=== PATIENT | female | born 1950 | race Caucasian/White ===

== ENCOUNTER 2019-07-08 11:28 | Outpatient (CLI) | payer MEDICARE, SELFPAY ==
[2019-07-08 12:13] LABS: Albumin Level 3.6 g/dL (3.5-5.1); Blood Urea Nitrogen 54 mg/dL (7-17); Calcium 8.9 mg/dL (8.4-10.2); Carbon Dioxide 25 mmol/L (22-30); Chloride 103 mmol/L (98-107); Estimated Glomerular Filt Rate 13; Glucose 202 mg/dL (65-105); Phosphorus 4.2 mg/dL (2.5-4.5); Potassium 3.9 mmol/L (3.4-5.0); Sodium 137 mmol/L (137-145)
[2019-07-08 12:15] LABS: Hemoglobin A1C 6.9 % (<5.7)
[2019-07-08 12:43] LABS: Creatinine Urine 88.8 mg/dL; Total Protein Urine Random 71 mg/dL
== END 2019-07-08 11:29 | disposition home or self-care (01) ==
PROVIDERS: PCP Internal Medicine; Visit Provider Internal Medicine Nephrology
DX: N18.4 Chronic kidney disease, stage 4 (severe) (principal); E11.29 Type 2 diabetes mellitus with other diabetic kidney complication; I12.9 Hypertensive chronic kidney disease with stage 1 through stage 4 chronic kidney disease, or unspecified chronic kidney disease
CPT/HCPCS: 36415; 80069; 82570; 83036; 84156

== ENCOUNTER 2019-07-28 11:01 | Outpatient (CLI) | payer MEDICARE, SELFPAY ==
[2019-07-28 11:36] LABS: Albumin Level 3.5 g/dL (3.5-5.1); Blood Urea Nitrogen 46 mg/dL (7-17); Calcium 8.6 mg/dL (8.4-10.2); Carbon Dioxide 23 mmol/L (22-30); Chloride 105 mmol/L (98-107); Estimated Glomerular Filt Rate 16; Glucose 229 mg/dL (65-105); Phosphorus 4.1 mg/dL (2.5-4.5); Potassium 3.6 mmol/L (3.4-5.0); Sodium 138 mmol/L (137-145)
== END 2019-07-28 11:02 | disposition home or self-care (01) ==
PROVIDERS: PCP Internal Medicine; Referring Provider Internal Medicine; Visit Provider Internal Medicine Nephrology
DX: N18.4 Chronic kidney disease, stage 4 (severe) (principal); I12.9 Hypertensive chronic kidney disease with stage 1 through stage 4 chronic kidney disease, or unspecified chronic kidney disease; E11.29 Type 2 diabetes mellitus with other diabetic kidney complication
CPT/HCPCS: 36415; 80069

== ENCOUNTER 2019-11-05 11:01 | Outpatient (CLI) | payer MEDICARE, SELFPAY ==
[2019-11-05 11:43] LABS: Albumin Level 3.7 g/dL (3.5-5.1); Anion Gap 10 mmol/L (8-16); Blood Urea Nitrogen 41 mg/dL (7-17); Calcium 8.8 mg/dL (8.4-10.2); Carbon Dioxide 24 mmol/L (22-30); Chloride 103 mmol/L (98-107); Estimated Glomerular Filt Rate 21; Glucose 242 mg/dL (65-105); Phosphorus 4.1 mg/dL (2.5-4.5); Potassium 3.5 mmol/L (3.4-5.0); Sodium 137 mmol/L (137-145)
[2019-11-05 11:50] LABS: Creatinine Urine 41.6 mg/dL; Total Protein Urine Random 45 mg/dL
[2019-11-05 11:54] LABS: Parathyroid Intact 182.7 pg/mL (7.5-53.5)
[2019-11-05 12:07] LABS: Vitamin D 25 Hydroxy 57.6 ng/mL
== END 2019-11-05 11:02 | disposition home or self-care (01) ==
LOC: ANHLAB 11:03
PROVIDERS: PCP Internal Medicine; Visit Provider Internal Medicine Nephrology
DX: R80.8 Other proteinuria (principal); I12.9 Hypertensive chronic kidney disease with stage 1 through stage 4 chronic kidney disease, or unspecified chronic kidney disease; N18.4 Chronic kidney disease, stage 4 (severe); E11.29 Type 2 diabetes mellitus with other diabetic kidney complication
CPT/HCPCS: 36415; 80069; 82306; 82570; 83970; 84156

== ENCOUNTER 2020-01-09 09:56 | Outpatient (CLI) | payer MEDICARE, SELFPAY ==
[2020-01-09 10:39] LABS: Alanine Aminotransferase 15 U/L (4-35); Albumin Level 3.9 g/dL (3.5-5.1); Alkaline Phosphatase 107 U/L (38-126); Anion Gap 8 mmol/L (8-16); Aspartate Amino Transferase 17 U/L (14-36); Bilirubin,Total 0.2 mg/dL (0.2-1.3); Blood Urea Nitrogen 40 mg/dL (7-17); Calcium 9.3 mg/dL (8.4-10.2); Carbon Dioxide 30 mmol/L (22-30); Chloride 108 mmol/L (98-107); Cholesterol 179 mg/dL (0-200); Estimated Glomerular Filt Rate 19; Glucose 112 mg/dL (65-105); HDL Direct 29 mg/dL; Potassium 4.7 mmol/L (3.4-5.0); Sodium 146 mmol/L (137-145); Triglycerides 198 mg/dL (<150); Uric Acid 5.8 mg/dL (2.5-7.5)
[2020-01-09 10:50] LABS: LDL Cholesterol Direct 90 mg/dL
[2020-01-09 11:11] LABS: Creatinine Urine 82.2 mg/dL
[2020-01-09 11:16] LABS: MALB Creatinine Ratio 102.7 mg/g (0-30); Microalbumin Urine Random 84.4 mg/L (0-16.7)
[2020-01-09 11:27] LABS: Vitamin D 25 Hydroxy 66.7 ng/mL
[2020-01-09 11:57] LABS: Hemoglobin A1C 6.2 % (<5.7)
== END 2020-01-09 09:57 | disposition home or self-care (01) ==
PROVIDERS: PCP Internal Medicine; Visit Provider Nurse Practitioner
DX: F32.9 Major depressive disorder, single episode, unspecified (principal); E11.21 Type 2 diabetes mellitus with diabetic nephropathy; E78.5 Hyperlipidemia, unspecified; E55.9 Vitamin D deficiency, unspecified; M1A.9XX0 Chronic gout, unspecified, without tophus (tophi)
CPT/HCPCS: 36415; 80053; 80061; 82043; 82306; 83036; 84443; 84550

== ENCOUNTER 2020-02-07 01:29 | Outpatient (CLI) | payer MEDICARE, SELFPAY ==
[2020-02-07 19:09] LABS: SARS-CoV-2 RNA PCR Negative
== END 2020-02-07 01:30 | disposition home or self-care (01) ==
LOC: ANHCOVIDDT 01:29
PROVIDERS: PCP Internal Medicine; Visit Provider Internal Medicine Gastroenterology
DX: Z01.818 Encounter for other preprocedural examination (principal); Z20.828 Contact with and (suspected) exposure to other viral communicable diseases
CPT/HCPCS: 87635; C9803; U0003

== ENCOUNTER 2020-02-10 01:13 | Day surgery (SDC) | payer MEDICARE, SELFPAY ==
[2020-02-03 09:31] VITALS: BMI 43.1
[2020-02-10 06:42] LABS: Glucose Point of Care 129 (65-105)
[2020-02-10 06:47] VITALS: BP 118/67; PULSE 66; RESP 18; TEMP 36.7; O2SAT 98
[2020-02-10] MEDS: LACTATED RINGERS 1,000 ML 150 ML IV CONT (06:57)
--- NOTE | 2020-02-10 08:01 | WPDANESEPPF ---
Anes - Initial Pre Proc Eval Procedure: Operation Date: 02/10/20 08:00 Proposed Procedures p Screening Colonoscopy - Juan Yanez MD Date/Time: 02/10/20 08:01 Surgeon: Juan Yanez MD Pre Op Diagnosis: Neoplasm Screening Patient Data Age: 69 Gender: F Height: 5 ft 7 in Weight: 126.2 kg Last Vital Signs Temp 98.1 F 02/10/20 06:47 Pulse 66 02/10/20 06:47 Resp 18 02/10/20 06:47 BP 118/67 02/10/20 06:47 Pulse Ox 98 02/10/20 06:47 Allergies Allergy/AdvReac Type Severity Reaction Status Date / Time Penicillins Allergy Unknown Swelling Verified 02/10/20 06:45 Home Medications Medication Instructions Recorded Confirmed Type glipizide 5 mg tablet 2.5 mg PO DAILY #30 tablet 03/17/19 02/03/20 Rx clopidogrel 75 mg tablet 75 mg PO DAILY #90 tablet 04/23/19 02/10/20 Rx albuterol sulfate 90 mcg/actuation 1 puff INHALATION Q4-6H PRN #8.5 gm 07/15/19 02/03/20 Rx aerosol inhaler aspirin 81 mg tablet,delayed 81 mg PO DAILY 07/15/19 02/03/20 History release tiotropium bromide 18 mcg capsule 1 cap INHALATION DAILY #30 07/15/19 02/03/20 Rx with inhalation device inhalation furosemide 40 mg tablet 40 mg PO BID #180 tablet 08/28/19 02/03/20 Rx venlafaxine 75 mg capsule,extended 75 mg PO DAILY #90 cap 01/13/20 02/03/20 Rx release 24 hr lisinopril 20 mg tablet 20 mg PO DAILY #90 tablet 01/27/20 02/03/20 Rx omeprazole 40 mg capsule,delayed 40 mg PO DAILY #90 cap 01/27/20 02/03/20 Rx release simvastatin 40 mg tablet 40 mg PO DAILY #90 tablet 01/27/20 02/03/20 Rx allopurinol 100 mg PO DAILY 02/03/20 02/03/20 History buspirone 15 mg PO BID 02/03/20 02/03/20 History calcitriol 0.25 mcg PO QMWF 02/03/20 02/03/20 History carvedilol 25 mg PO BID 02/03/20 02/03/20 History cholecalciferol (vitamin D3) 10 mcg PO DAILY 02/03/20 02/03/20 History [Vitamin D3] fwsfcmudojmh-zvk-wfpp-FA-vit K 1 tablet PO DAILY 02/03/20 02/03/20 History [Adults Multivitamin] topiramate 100 mg PO HS 02/03/20 02/03/20 History Laboratory Tests 02/10/20 06:40 POC Capillary Glucose 129 mg/dl H mg/dl (65-105) Patient hx anesthesia problems: none Family hx anesthesia problems: none PMFSH Past Medical History Medical History (Updated 02/10/20 @ 08:04 by Wagner Hoover MD) history Chronic kidney disease, stage 4 (severe) Elevated parathyroid hormone Essential (primary) hypertension Hyperlipidemia, unspecified Screening for breast cancer Seizure disorder Surgical History Surgical History (Updated 05/13/19 @ 07:41 by Katia Queen CMA) H/O dilation and curettage H/O exploratory laparotomy History of carpal tunnel release History of elbow surgery History of knee replacement History of partial hysterectomy Family History Family History (Updated 07/03/18 @ 12:50 by DOCTOR UNKNOWN) Mother Family history of diabetes mellitus in first degree relative Diabetes mellitus Sibling Family history of diabetes mellitus in first degree relative Father Patient's father is Acute myocardial infarction Family history of congestive heart failure Other Family history of lymphoma Social History Social History Smoking packs per day: 2 Smoking cigarettes per day: 40.0 Years smoked: 20 Smoking pack-years: 40.00 Smoking status: Former smoker Tobacco type: cigarettes Smoking end date: 03/19/80 Alcohol intake: current Substance use: never Substance use type: does not use Living arrangements: with family Spiritual care concerns: No Anes - Eval Final PreProcedure Day of Procedure 02/10/20 08:01 Patient weight: overweight Heart: regular rate and rhythm Lungs: clear to auscultation Airway: Mallampati scale class III Neurological: alert and oriented Last oral intake: >/= 8 hours ASA classification: III Emergent: no Anesthetic plan: proceed Anesthesia type and monitoring: general GIVS and standard monitoring In
--- NOTE | 2020-02-10 08:09 | PM.HPGS ---
History of Present Illness History of Present Illness Consent: Risks, benefits, and alternatives have been discussed and questions answered. Patient agrees to proceed with procedure. Chief complaint: Neoplasm Screening Narrative: Billie Holcomb is a 69 year old female here for screening colonoscopy, last one several years ago Review of Systems Constitutional: Constitutional: Denies headache(s) and Denies weakness Eyes: Eyes: Denies blurry vision ENT: Reports Normal hearing present, Denies headache(s) and Denies neck pain Cardiovascular: Cardiovascular: Denies chest pain and Denies dyspnea Respiratory: Respiratory: Denies dyspnea Gastrointestinal: Gastrointestinal: Reports no additional gastrointestinal complaints Genitourinary: Genitourinary: Denies dysuria Musculoskeletal: Musculoskeletal: Denies neck pain Integumentary/Breasts: Skin/Breast: Denies dry skin Neurologic: Reports Normal hearing present, Denies headache(s) and Denies weakness Psychiatric: Psychiatric: Denies anxiety Endocrine: Endocrine: Denies change in body appearance Hematologic/Lymphatic: Hematologic/Lymphatic: Denies easy bleeding Allergic/Immunologic: Allergic/Immunologic: Denies urticaria PMFSH Past Medical History Medical History (Updated 02/10/20 @ 08:10 by Juan Yanez MD) history Chronic kidney disease, stage 4 (severe) Colon cancer screening Elevated parathyroid hormone Essential (primary) hypertension Hyperlipidemia, unspecified Screening for breast cancer Seizure disorder Surgical History Surgical History (Updated 05/13/19 @ 07:41 by Katia Queen CMA) H/O dilation and curettage H/O exploratory laparotomy History of carpal tunnel release History of elbow surgery History of knee replacement History of partial hysterectomy Family History Family History (Updated 07/03/18 @ 12:50 by DOCTOR UNKNOWN) Mother Family history of diabetes mellitus in first degree relative Diabetes mellitus Sibling Family history of diabetes mellitus in first degree relative Father Patient's father is Acute myocardial infarction Family history of congestive heart failure Other Family history of lymphoma Social History Social History Smoking packs per day: 2 Smoking cigarettes per day: 40.0 Years smoked: 20 Smoking pack-years: 40.00 Smoking status: Former smoker Tobacco type: cigarettes Smoking end date: 03/19/80 Alcohol intake: current Substance use: never Substance use type: does not use Living arrangements: with family Spiritual care concerns: No Meds Home Medications and Allergies Home Medications Medication Instructions Recorded Confirmed Type glipizide 5 mg tablet 2.5 mg PO DAILY #30 tablet 03/17/19 02/03/20 Rx clopidogrel 75 mg tablet 75 mg PO DAILY #90 tablet 04/23/19 02/10/20 Rx albuterol sulfate 90 mcg/actuation 1 puff INHALATION Q4-6H PRN #8.5 gm 07/15/19 02/03/20 Rx aerosol inhaler aspirin 81 mg tablet,delayed 81 mg PO DAILY 07/15/19 02/03/20 History release tiotropium bromide 18 mcg capsule 1 cap INHALATION DAILY #30 07/15/19 02/03/20 Rx with inhalation device inhalation furosemide 40 mg tablet 40 mg PO BID #180 tablet 08/28/19 02/03/20 Rx venlafaxine 75 mg capsule,extended 75 mg PO DAILY #90 cap 01/13/20 02/03/20 Rx release 24 hr lisinopril 20 mg tablet 20 mg PO DAILY #90 tablet 01/27/20 02/03/20 Rx omeprazole 40 mg capsule,delayed 40 mg PO DAILY #90 cap 01/27/20 02/03/20 Rx release simvastatin 40 mg tablet 40 mg PO DAILY #90 tablet 01/27/20 02/03/20 Rx allopurinol 100 mg PO DAILY 02/03/20 02/03/20 History buspirone 15 mg PO BID 02/03/20 02/03/20 History calcitriol 0.25 mcg PO QMWF 02/03/20 02/03/20 History carvedilol 25 mg PO BID 02/03/20 02/03/20 History cholecalciferol (vitamin D3) 10 mcg PO DAILY 02/03/20 02/03/20 History [Vitamin D3] avpvexuzvwmv-cct-crsv-FA-vit K 1 tablet PO DAILY 02/03/20 02/03/20 History [A
[2020-02-10 08:39] VITALS: BP 94/55; PULSE 73; RESP 20; O2SAT 94
[2020-02-10 08:49] VITALS: BP 100/57; PULSE 51; RESP 17; O2SAT 99
[2020-02-10 08:59] VITALS: BP 115/74; PULSE 50; RESP 20; O2SAT 96
--- NOTE | 2020-02-10 09:01 | SUR.PHASEII ---
SPOUSE HERE IN THE ROOM HELPING PT DRESS
== END 2020-02-10 09:09 | disposition home or self-care (01) ==
PROVIDERS: PCP Internal Medicine; Visit Provider Internal Medicine Gastroenterology
PROC: 0DJD8ZZ Inspection of Lower Intestinal Tract, Via Natural or Artificial Opening Endoscopic (ICD-10-PCS; CPT 45378; principal; 2020-02-10 08:00)
DX: Z12.11 Encounter for screening for malignant neoplasm of colon (principal); K63.5 Polyp of colon; K64.8 Other hemorrhoids; I69.351 Hemiplegia and hemiparesis following cerebral infarction affecting right dominant side; I12.9 Hypertensive chronic kidney disease with stage 1 through stage 4 chronic kidney disease, or unspecified chronic kidney disease; N18.4 Chronic kidney disease, stage 4 (severe); E78.5 Hyperlipidemia, unspecified; Z96.659 Presence of unspecified artificial knee joint; Z87.891 Personal history of nicotine dependence
CPT/HCPCS: 45380; 88305; C9803; J2704; J7120; U0003

== ENCOUNTER 2020-02-27 09:59 | Outpatient (CLI) | payer MEDICARE, SELFPAY ==
--- NOTE | ~2020-02-27 | MM_ITS ---
EXAMINATION: MM screening kristi BI w steffany HISTORY: Screening TECHNIQUE: Craniocaudal and mediolateral oblique 3-D tomosynthesis images were obtained and synthetic 2-D images were generated. CAD analysis was submitted and interpreted. COMPARISON: Comparison to multiple prior studies sequentially, with oldest reviewed study dated 12/19. BREAST PARENCHYMAL COMPOSITION: There are scattered areas of fibroglandular density. FINDINGS: There is an enlarged left axillary lymph node overlying the pectoralis muscle. The right br east is stable without evidence for malignancy. IMPRESSION: 1. Left axillary lymphadenopathy. 2. Left axillary ultrasound recommended. BI-RADS Category 0: Incomplete: Needs additional imaging evaluation. Reviewed, dictated and finalized at location A. PER CASER
== END 2020-02-27 10:00 | disposition home or self-care (01) ==
LOC: ANHIMG 10:00
PROVIDERS: PCP Internal Medicine; Visit Provider Internal Medicine
DX: Z12.31 Encounter for screening mammogram for malignant neoplasm of breast (principal); R92.8 Other abnormal and inconclusive findings on diagnostic imaging of breast
CPT/HCPCS: 77063; 77067

== ENCOUNTER 2020-03-03 11:15 | Outpatient (CLI) | payer MEDICARE, SELFPAY ==
[2020-03-03 11:57] LABS: Albumin Level 3.6 g/dL (3.5-5.1); Anion Gap 7 mmol/L (8-16); Blood Urea Nitrogen 50 mg/dL (7-17); Calcium 8.9 mg/dL (8.4-10.2); Carbon Dioxide 27 mmol/L (22-30); Chloride 104 mmol/L (98-107); Estimated Glomerular Filt Rate 20; Glucose 180 mg/dL (65-105); Potassium 3.8 mmol/L (3.4-5.0); Sodium 138 mmol/L (137-145)
[2020-03-03 12:08] LABS: Parathyroid Intact 174.5 pg/mL (7.5-53.5)
[2020-03-03 12:20] LABS: Creatinine Urine 47.4 mg/dL; Total Protein Urine Random 41 mg/dL; Ur Ttl Prot Creatinine Ratio 0.86 mg/mg (0-0.20)
== END 2020-03-03 11:16 | disposition home or self-care (01) ==
LOC: ANHLAB 11:18
PROVIDERS: PCP Internal Medicine; Visit Provider Internal Medicine Nephrology
DX: I12.9 Hypertensive chronic kidney disease with stage 1 through stage 4 chronic kidney disease, or unspecified chronic kidney disease (principal); N18.4 Chronic kidney disease, stage 4 (severe); E11.22 Type 2 diabetes mellitus with diabetic chronic kidney disease; R80.8 Other proteinuria
CPT/HCPCS: 36415; 80069; 82570; 83970; 84156

== ENCOUNTER 2020-03-08 14:52 | Outpatient (CLI) | payer MEDICARE, SELFPAY ==
--- NOTE | ~2020-03-08 | US_ITS ---
US axilla LT 03/08/2020 15:45 Indication: Generalized lymph node enlargement Procedure: High-resolution ultrasound of the left axilla Comparison: Mammogram dated 02/27/2020 Findings: There are multiple enlarged lymph nodes of the left axilla corresponding to the findings fr om mammography. The largest measures 4.3 x 2.5 x 1.3 cm. There is normal retention of the fatty hilum in these lymph nodes which are nonspecific. Impression: 1: Left axillary lymphadenopathy. Percutaneous biopsy recommended to exclude malignancy. BI-RADS CATEGORY 4-SUSPICIOUS ABNORMALITY RECOMMENDATION: Left axillary percutaneous lymph node biopsy recommended. Reviewed, dictated and finalized at location A. L INSPECTOR MOVEMENT ASSEMBLY Impression: 1: Left axillary lymphadenopathy. Percutaneous biopsy recommended to exclude ma lignancy. BI-RADS CATEGORY 4-SUSPICIOUS ABNORMALITY RECOMMENDATION: Left axillary percutaneous lymph node biopsy recommended.
== END 2020-03-08 14:53 | disposition home or self-care (01) ==
PROVIDERS: PCP Internal Medicine; Visit Provider Internal Medicine
DX: R59.1 Generalized enlarged lymph nodes (principal); R92.8 Other abnormal and inconclusive findings on diagnostic imaging of breast
CPT/HCPCS: 76882

== ENCOUNTER 2020-04-01 10:06 | Outpatient (CLI) | payer MEDICARE, SELFPAY ==
--- NOTE | ~2020-04-01 | US_ITS ---
EXAMINATION: US biopsy lymph node DATE: 04/01/2020 11:06 INDICATION: Left axillary lymphadenopathy. TECHNIQUE: The procedure including the risks, benefits, and alternatives was discussed with the patie nt. Risks discussed included bleeding and infection. The patient understood the risks and agreed to p roceed. The skin overlying the left axilla was prepped and draped in usual sterile fashion. Anesthet ic was administered with 1% lidocaine subcutaneously. An 18 gauge core biopsy needle was then used t o obtain 6 core biopsy specimens under continuous sonographic guidance. The entry site was cleaned an d dressed. There were no immediate complications. FINDINGS: Ultrasound images demonstrate the needle in a 2.4 x 1.7 cm left axillary lymph node. IMPRESSION: 1. Ultrasound-guided core needle biopsy of a mildly enlarged left axillary lymph node. Reviewed, dictated and finalized at location A. S SALESPERSON IMPRESSION: 1. Ultrasound-guided core needle biopsy of a mildly enlarged left axillary lymp h node.
== END 2020-04-01 10:07 | disposition home or self-care (01) ==
PROVIDERS: PCP Internal Medicine; Visit Provider Internal Medicine
DX: R59.0 Localized enlarged lymph nodes (principal); C91.Z0 Other lymphoid leukemia not having achieved remission
CPT/HCPCS: 38505; 76942; 88305

== ENCOUNTER 2020-04-07 15:49 | Outpatient (CLI) | payer MEDICARE, SELFPAY ==
[2020-04-07 16:09] LABS: Basophils Absolute Auto 0.1 K/mm3 (0.0-0.1); Basophils Percent Auto 0.3 % (0.2-1.2); Eosinophils Absolute Auto 0.4 K/mm3 (0-0.3); Eosinophils Percent Auto 1.5 % (0-4.4); Hematocrit 30.7 % (37.0-47.0); Hemoglobin 9.4 g/dL (12.0-15.0); Immature Granulocyte Absolute 0.05 K/mm3 (0.00-0.031); Immature Granulocyte Percent A 0.2 % (0-0.5); Lymphocytes Absolute Auto 19.73 K/mm3 (0.9-3.2); Mean Corpuscular HGB Conc 30.6 g/dl (32-36); Mean Corpuscular Volume 91.4 fl (80-100); Mean Platelet Volume 9.3 fl (7.4-10.4); Monocytes Absolute Auto 0.4 K/mm3 (0.1-0.6); Monocytes Percent Auto 1.5 % (2.6-8.5); Neutrophils Percent Auto 19.5 % (45.5-73.1); Platelet Count Result 222 k/mm3 (150-375); Red Blood Count 3.36 M/mm3 (4.2-5.4); Red Cell Distribution Width 15.6 % (11.5-14.5); White Blood Count 25.6 K/mm3 (4.5-10.0)
[2020-04-07 16:18] LABS: Atypical Lymphocytes Present; Hypochromasia 1+ (NORMAL); Platelet Estimate Adequate (Adequate); Smudge Cells PRESENT
[2020-04-07 16:53] LABS: Alanine Aminotransferase 14 U/L (4-35); Albumin Level 3.8 g/dL (3.5-5.1); Alkaline Phosphatase 113 U/L (38-126); Anion Gap 5 mmol/L (8-16); Aspartate Amino Transferase 19 U/L (14-36); Bilirubin,Total 0.4 mg/dL (0.2-1.3); Blood Urea Nitrogen 43 mg/dL (7-17); Calcium 9.4 mg/dL (8.4-10.2); Carbon Dioxide 29 mmol/L (22-30); Chloride 103 mmol/L (98-107); Estimated Glomerular Filt Rate 21; Glucose 79 mg/dL (65-105); Lactate Dehydrogenase 353 U/L (313-618); Sodium 137 mmol/L (137-145)
== END 2020-04-07 15:50 | disposition home or self-care (01) ==
LOC: ANHLAB 15:50
PROVIDERS: Family Provider Internal Medicine; PCP Internal Medicine; Visit Provider Internal Medicine Hematology & Oncology
DX: C83.00 Small cell B-cell lymphoma, unspecified site (principal)
CPT/HCPCS: 36415; 80053; 83615; 85025; 88184; 88185

== ENCOUNTER 2020-04-13 14:00 | Outpatient (CLI) | payer MEDICARE, SELFPAY ==
--- NOTE | ~2020-04-13 | CT_ITS ---
EXAMINATION: CT chest abdomen pelvis wo con DATE: 04/13/2020 15:42 INDICATION: Small cell lymphocytic lymphoma TECHNIQUE: Computed tomography (CT) of the chest, abdomen, and pelvis was performed without intraveno us contrast. Automated exposure control and iterative reconstruction technique were employed. Exam do se: 1736.41 mGy-cm total exam DLP. COMPARISON: None available from archive FINDINGS: CHEST CT: There is discoid atelectasis//or scarring primarily at the middle lobe, left lower lobe, lingula and to a lesser extent posterior right lung base, right lower lobe. No pulmonary consolidation or suspicious pulmonary mass lesion is detected. Normal size and homogeneous enhancement of the thyroid gland. There is aneurysm of the ascending thoracic aorta, measuring up to 4.1 cm approximate maximal diamete r. Aortic and great vessel calcification. There are calcified right hilar nodes and calcified pulmonary granulomas consistent with old granulom atous disease. There is an 8 x 17 mm left superior mediastinal lymph node; shotty nonenlarged lymph nodes are noted elsewhere in the mediastinum. No hilar mass lesion or lymphadenopathy is evident. Up to 14 x 25 mm right axillary lymph nodes, up to 13.5 x 30 mm left axillary lymph nodes. Mild cardiomegaly. Mild pericardial effusion. ABDOMEN/PELVIS CT: The liver, gallbladder, bile ducts, pancreas and pancreatic duct and adrenal glands are unremarkable. The spleen measures 13.6 cm height, with 14 cm being upper limits of normal. Prominent up to approximately 3.5 cm exophytic upper pole left renal cysts are noted. Another approxi mately 2.5 cm exophytic cyst is noted along the anterior mid left kidney. Small exophytic right twin l cyst. 3 mm nonobstructing lower pole left renal calculus. No urinary tract calculus is noted otherwise, no hydroureteronephrosis. There is moderate thickening of the urinary bladder wall with mild pericystic fat stranding suggestin g cystitis. Some fluid and air are noted in the vaginal vault. The uterus and adnexal areas are unremarkable. There is atherosclerotic calcification of the abdominal aorta and iliac arteries; no abdominal aortic aneurysm. There are numerous shotty nonenlarged aortocaval and periaortic lymph nodes. There is some shoddy non enlarged lymph nodes along the iliac chains bilaterally and bilateral inguinal lymph nodes; the lymph nodes measure up to 8.4 x 18 mm on the right and 8 x 19 mm on the left. There is a prominent amount of fecal material within the colon but no evidence of bowel obstruction, bowel wall thickening, pneumatosis or intraperitoneal free air. Probable appendectomy. Degenerative changes of the cervical, thoracic and particularly lumbar spine with severe multilevel d egenerative disease at the lumbar spine. No suspicious osteolytic or osteoblastic lesions are noted. IMPRESSION: Ascending thoracic aortic aneurysm, measuring up to 4.1 cm diameter 8 x 17 mm left superior mediastinal lymph node Up to 14 x 25 mm right axillary and 13.5 x 30 mm left axillary nonspecific lymph nodes Shotty nonenlarged mediastinal, periaortic, aortocaval, iliac lymph nodes Up to 8.4 x 18 mm right and 8 x 19 mm left inguinal lymph nodes Borderline splenomegaly Moderate thickening of the urinary bladder wall and pericystic fat stranding, suggesting cystitis Reviewed, dictated and finalized at Location A. Reviewed, dictated and finalized at location A. NRY SUPERVISOR IMPRESSION: Ascending thoracic aortic aneurysm, measuring up to 4.1 cm diamete r 8 x 17 mm left superior mediastinal lymph node Up to 14 x 25 mm right axillary and 13.5 x 30 mm left axillary nonspecific lymp h nodes Shotty nonenlarged medias
[2020-04-13 14:49] LABS: Estimated Glomerular Filt Rate 20
== END 2020-04-13 14:01 | disposition home or self-care (01) ==
PROVIDERS: Family Provider Internal Medicine; PCP Internal Medicine; Visit Provider Internal Medicine Hematology & Oncology
DX: C83.00 Small cell B-cell lymphoma, unspecified site (principal); R16.1 Splenomegaly, not elsewhere classified; I71.2 Thoracic aortic aneurysm, without rupture
CPT/HCPCS: 71250; 74176

== ENCOUNTER 2020-07-05 17:56 | Observation (INO) | payer MEDICARE, SELFPAY ==
--- NOTE | ~2020-07-05 | CT_ITS ---
EXAMINATION: CT abdomen pelvis wo con DATE: 07/05/2020 22:26 INDICATION: Hematuria. Painful urination. TECHNIQUE: Computed tomography (CT) of the abdomen and pelvis was performed without intravenous contr ast. The dose-length product was 1394.90 mGy-cm. Automated exposure control and iterative reconstruct ion technique were employed. COMPARISON: CT dated 04/13/2020. FINDINGS: There is bibasilar subsegmental atelectasis. No significant pleural or pericardial effusion . There is atherosclerosis without evidence for aneurysm. Mild bilateral inguinal lymphadenopathy unc hanged, likely reactive. Spleen upper normal size. There are multiple bilateral renal cysts. There is a nonobstructing 3 mm le ft renal stone at the lower pole. The liver, adrenal glands and pancreas are unremarkable. Gallbladder is present. Nonobstructive bowel gas pattern. Tiny fat-containing umbilical hernia. There is laxity of the anterior abdominal wall mu sculature. There is diffuse bladder wall thickening with perivesical infiltration, consistent with cy stitis. No free air or free fluid. Severe lumbar spondylosis. IMPRESSION: 1. Cystitis, likely chronic. 2: Nonobstructing left nephrolithiasis. 3: Bilateral inguinal lymphadenopathy, likely reactive. Reviewed, dictated and finalized at location A.
[2020-07-05 18:20] VITALS: BP 90/61; PULSE 73; RESP 18; TEMP 36.3; O2SAT 100
[2020-07-05 18:34] LABS: Basophils Absolute Auto 0.1 K/mm3 (0.0-0.1); Basophils Percent Auto 0.3 % (0.2-1.2); Eosinophils Absolute Auto 0.4 K/mm3 (0-0.3); Hematocrit 32.9 % (37.0-47.0); Hemoglobin 10.4 g/dL (12.0-15.0); Immature Granulocyte Absolute 0.03 K/mm3 (0.00-0.031); Immature Granulocyte Percent A 0.1 % (0-0.5); Lymphocytes Absolute Auto 14.77 K/mm3 (0.9-3.2); Lymphocytes Percent Auto 73.4 % (18.3-44.2); Mean Corpuscular HGB Conc 31.6 g/dl (32-36); Mean Corpuscular Volume 91.6 fl (80-100); Mean Platelet Volume 9.3 fl (7.4-10.4); Monocytes Absolute Auto 0.5 K/mm3 (0.1-0.6); Monocytes Percent Auto 2.3 % (2.6-8.5); Neutrophils Absolute Auto 4.4 K/mm3 (1.3-6.7); Neutrophils Percent Auto 21.9 % (45.5-73.1); Platelet Count Result 236 k/mm3 (150-375); Red Blood Count 3.59 M/mm3 (4.2-5.4); Red Cell Distribution Width 15.3 % (11.5-14.5); White Blood Count 20.1 K/mm3 (4.5-10.0)
[2020-07-05 18:45] LABS: Anion Gap 12 mmol/L (8-16); Blood Urea Nitrogen 60 mg/dL (7-17); Carbon Dioxide 24 mmol/L (22-30); Chloride 103 mmol/L (98-107); Estimated CRCL calculation 18 ml/min; Estimated Glomerular Filt Rate 13; Glucose 130 mg/dL (65-105); Potassium 4.1 mmol/L (3.4-5.0); Sodium 139 mmol/L (137-145)
--- NOTE | 2020-07-05 22:20 | WPDEDEXPGENP ---
HPI - General Ped General Chief complaint: Urogenital-Female <SARAH Lopez Last Filed: 07/06/20 01:42> Stated complaint: hematuria <SARAH Lopez Last Filed: 07/06/20 01:42> Time Seen by Provider: 07/05/20 21:53 <SARAH Lopez Last Filed: 07/06/20 01:42> Source: patient <SARAH Lopez Last Filed: 07/06/20 01:42> Mode of arrival: ambulatory <SARAH Lopez Last Filed: 07/06/20 01:42> Limitations: no limitations <SARAH Lopez Last Filed: 07/06/20 01:42> Nursing Documentation: reviewed/agree <SARAH Lopez Last Filed: 07/06/20 01:42> History of Present Illness HPI narrative: Patient is a 70-year-old female who presents to emergency department for evaluation of hematuria noticed by her today patient has history of incontinence and he noticed some blood today and then when she urinated again noticed more blood patient does note some mild irritation down into the left suprapubic region patient denies any change in bowel habit fever chills nausea vomiting patient is currently on Plavix with history of CVA patient denies injury trauma or similar occurrence in the past <Chas eMndez PA-C - Last Filed: 07/06/20 01:42> Related Data Home medications: Home Medications Medication Instructions Recorded Confirmed aspirin 81 mg tablet,delayed 81 mg PO DAILY 07/15/19 07/06/20 release calcitriol 0.25 mcg PO QMWF 02/03/20 07/06/20 cholecalciferol (vitamin D3) 10 mcg PO DAILY 02/03/20 07/06/20 [Vitamin D3] qdglnqghgknt-jcz-mvsg-FA-vit K 1 tablet PO DAILY 02/03/20 07/06/20 [Adults Multivitamin] allopurinol 100 mg PO DAILY 07/06/20 07/06/20 buspirone 15 mg PO TID 07/06/20 07/06/20 carvedilol 25 mg PO BID 07/06/20 07/06/20 clopidogrel 75 mg PO DAILY 07/06/20 07/06/20 glipizide 5 mg PO DAILY 07/06/20 07/06/20 <Chas Mendez PA-C - Last Filed: 07/06/20 01:42> Allergies/adverse reactions: Allergies Allergy/AdvReac Type Severity Reaction Status Date / Time Penicillins Allergy Unknown Swelling Verified 02/10/20 06:45 <Chas Mendez PA-C - Last Filed: 07/06/20 01:42> Pediatric Review of Systems : All systems ED: reviewed and negative except as stated <Chas Mendez PA-C - Last Filed: 07/06/20 01:42> [facility] Past Medical History Medical History: Medical History history Chronic kidney disease, stage 4 (severe) Colon cancer screening Elevated parathyroid hormone Essential (primary) hypertension Hyperlipidemia, unspecified Screening for breast cancer Seizure disorder <Chas Mendez PA-C - Last Filed: 07/06/20 01:42> Surgical History Surgical History: Surgical History H/O dilation and curettage H/O exploratory laparotomy History of carpal tunnel release History of elbow surgery History of knee replacement History of partial hysterectomy <Chas Mendez PA-C - Last Filed: 07/06/20 01:42> Family History Family History: Family History (Updated 07/03/18 @ 12:50 by DOCTOR UNKNOWN) Mother Family history of diabetes mellitus in first degree relative Diabetes mellitus Sibling Family history of diabetes mellitus in first degree relative Father Patient's father is Acute myocardial infarction Family history of congestive heart failure Other Family history of lymphoma <Chas Mendez PA-C - Last Filed: 07/06/20 01:42> Social History Social History: Social History Smoking packs per day: 2 Smoking cigarettes per day: 40.0 Years smoked: 20 Smoking pack-years: 40.00 Alcohol intake: current Substance use: never Substance use type: does not use Gender identity (if verbalized by the patient): Female Spiritual care concerns: No
[2020-07-05 22:45] VITALS: BP 92/59; PULSE 68; RESP 18; O2SAT 100
[2020-07-05] MEDS: SODIUM CHLORIDE 0.9% IV 1,000 ML 999 ML IV CONT (23:18)
[2020-07-06] VITALS (8 sets, daily range): BP systolic 108–174; BP diastolic 48–72; PULSE 56–78; RESP 16–20; TEMP 36–36.9; O2SAT 95–98; BMI 36.3
[2020-07-06] MEDS: SODIUM CHLORIDE 0.9% IV 500 ML 999 ML IV CONT (00:07)
[2020-07-06] MEDS: cefTRIAXone 1 GM VIAL IM (00:07)
[2020-07-06] MEDS: SODIUM CHLORIDE 0.9% IV 1,000 ML 999 ML IV CONT (02:32)
[2020-07-06 03:14] LABS: Add Urine Microscopic? YES; Appearance Urine Turbid (Clear); Bacteria Urine 4+ /hpf; Bilirubin Urine Negative (Negative); Blood Urine 3+ (Negative); Color Urine Yellow (Yellow); Glucose Urine UA Negative (Negative); Ketones Urine Negative (Negative); Leukocyte Esterase Ur 2+ LEU/UL (Negative); Mucus Urine Rare /lpf; Nitrate Urine Negative (Negative); Protein Urine 2+ mg/dL (Negative); RBC Urine >75 /hpf (0-2); Urobilinogen Urine Negative mg/dL (<2.0); WBC Clumps Urine Present /HPF; WBC Urine >75 /hpf
[2020-07-06] MEDS: LACTATED RINGERS 1,000 ML 100 ML IV CONT ×3 (04:01→23:31)
[2020-07-06 05:53] LABS: Hematocrit 26.9 % (37.0-47.0); Hemoglobin 8.4 g/dL (12.0-15.0); Mean Corpuscular HGB Conc 31.2 g/dl (32-36); Mean Corpuscular Volume 92.8 fl (80-100); Mean Platelet Volume 9.6 fl (7.4-10.4); Platelet Count Result 174 k/mm3 (150-375); Red Cell Distribution Width 15.1 % (11.5-14.5)
[2020-07-06 06:07] LABS: Anion Gap 8 mmol/L (8-16); Blood Urea Nitrogen 57 mg/dL (7-17); Calcium 8.2 mg/dL (8.4-10.2); Carbon Dioxide 22 mmol/L (22-30); Chloride 111 mmol/L (98-107); Estimated CRCL calculation 18 ml/min; Estimated Glomerular Filt Rate 15; Glucose 112 mg/dL (65-105); Potassium 3.6 mmol/L (3.4-5.0); Sodium 141 mmol/L (137-145)
--- NOTE | 2020-07-06 07:59 | ADMGEN ---
This patient, Billie Holcomb, was admitted to 3 [facility] Surg Room 324-01. Patient/family oriented to hospital policies and general routines including ID bracelet, bed and alarms, visiting hours, pain management, procedures, bathroom and other care routines, personal items, smoking policy, room service/diet, and visiting hours. Information on how to activate the Rapid Response Team has been discussed. Patient/Family are encouraged to report perceived risks to care and to ask questions if they do not understand what they are told or what they should do. Arrived at 0345, pleasant, no c/o pain. Discussed medications received at the hospital and answered questions about home meds. Discussed hospital policy including safety, call light use, and toileting methods. Called with updates and performed med rec with him using her med bottles at home.
[2020-07-06] MEDS: FAMOTIDINE 20 MG/2 ML VIAL IV PUSH ×2 (08:42→20:21)
[2020-07-06 08:55] LABS: Glucose Point of Care 105 (65-105)
--- NOTE | 2020-07-06 10:14 | PCRCNOTE ---
Pt states she has not worn CPAP at home for quite a while.
--- NOTE | 2020-07-06 10:22 | PM.IMHP ---
H&P: HPI History of Present Illness Date/Time: 07/06/20944 Chief Complaint: Hematuria, dysuria Narrative: 07/06/20944 The supervising physician for this history and physical is Dr Kristin Doll. Ms. Holcomb is a 70yo F with history of prior stroke with residual right-sided deficits and dysphasia, hypertension, yai-bfotjgv-mpodiakld type 2 diabetes mellitus, chronic anemia, chronic kidney disease, chronic lymphocytic leukemia who presented to the ED for evaluation of hematuria. She describes she has noticed some blood in her urine last 1 week or so, but in the last 2 days she has noticed burning with urination and ongoing blood in her urine. She does experience chronic urinary incontinence. She is able to answer most questions on her own but sometimes has difficulty coming up with answers, speech is slow. She denies any chest pain, shortness of breath, cough, nausea, or vomiting. She reports she has been eating drinking okay at home and her appetite has been fine. She denies noticing any fevers or chills at home, denies sick contacts. She is not able to use her right arm and she is unable to walk, uses a wheelchair at baseline secondary to prior CVA. She tells me her , Enmanuel, is her main production editor at home. Urinalysis is grossly abnormal and she was started on IV ceftriaxone with urine and blood cultures pending. Keane catheter was initiated in the ED as they were unable to obtain a urine sample. Routine labs demonstrate elevated BUN and Cr a bit above her baseline, a leukocytosis which may in part be related to her known history of CLL vs UTI, chronic anemia. She was admitted to the hospitalist service in observation status for treatment of UTI. Review of Systems Review of Systems: Narrative: Patient's only complaint is hematuria and dysuria which are improving. Twelve systems were reviewed with pertinent positives and negatives as per HPI. Except as documented, all other systems were reviewed and are negative. 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 Elevated parathyroid hormone Essential (primary) hypertension Hyperlipidemia, unspecified Screening for breast cancer Seizure disorder Sleep apnea, unspecified Type 2 diabetes mellitus with diabetic polyneuropathy, without long-term current use of insulin Surgical History Surgical History H/O dilation and curettage H/O exploratory laparotomy History of carpal tunnel release History of elbow surgery History of knee replacement History of partial hysterectomy Family History Family History Mother Family history of diabetes mellitus in first degree relative Diabetes mellitus Sibling Family history of diabetes mellitus in first degree relative Father Patient's father is Acute myocardial infarction Family history of congestive heart failure Other Family history of lymphoma Social History Social History (Updated 07/06/20 @ 13:09 by Shara Olsen PA-C) Social History: Ms. Holcomb lives at home with her . She reports drinking one or two beers per month. She reports smoking in her younger years but cannot quantify more details at this time. He designates her as her surrogate decision maker and wishes to be full code status. PCP: Dr Raul Ibarra Smoking packs per day: 2 Smoking cigarettes per day: 40.0 Years smoked: 20 Smoking pack-years: 40.00 Smoking status: Former smoker Alcohol intake: current Substance use: never Substance use type: does not use Gender identity (if verbalized by the patient): Female Spiritual care concerns:
[2020-07-06] MEDS: CHOLECALCIFEROL 400 UNITS TABLET (VIT D) PO (10:40)
[2020-07-06] MEDS: CLOPIDOGREL BISULFATE 75 MG TABLET PO (10:40)
[2020-07-06] MEDS: allopurinoL 100 MG TABLET PO (10:40)
[2020-07-06] MEDS: busPIRone HCL 5 MG TABLET PO ×3 (10:40→17:24)
[2020-07-06] MEDS: busPIRone HCL 10 MG TABLET PO ×3 (10:40→17:24)
[2020-07-06] MEDS: ASPIRIN 81 MG ENTERIC TABLET PO (10:40)
[2020-07-06] MEDS: VENLAFAXINE HCL XR 75 MG CAP.ER.24H PO (10:41)
[2020-07-06] MEDS: SIMVASTATIN 20 MG TABLET 40 MG PO (10:41)
[2020-07-06 12:19] LABS: Glucose Point of Care 160 (65-105)
[2020-07-06] MEDS: FERROUS SULFATE 324 MG TABLET PO (13:57)
[2020-07-06 18:08] LABS: Glucose Point of Care 135 (65-105)
[2020-07-06 19:43] LABS: Glucose Point of Care 157 (65-105)
[2020-07-06] MEDS: TOPIRAMATE 100 MG TABLET PO (20:21)
[2020-07-07 06:00] VITALS: BP 159/80; PULSE 68; RESP 20; TEMP 36.2; O2SAT 98
[2020-07-07 06:28] LABS: Basophils Absolute Auto 0.1 K/mm3 (0.0-0.1); Basophils Percent Auto 0.3 % (0.2-1.2); Eosinophils Absolute Auto 0.3 K/mm3 (0-0.3); Eosinophils Percent Auto 1.7 % (0-4.4); Hematocrit 25.8 % (37.0-47.0); Immature Granulocyte Absolute 0.04 K/mm3 (0.00-0.031); Immature Granulocyte Percent A 0.2 % (0-0.5); Lymphocytes Absolute Auto 13.85 K/mm3 (0.9-3.2); Lymphocytes Percent Auto 77.7 % (18.3-44.2); Mean Corpuscular Hemoglobin 28.8 pg (26-34); Mean Corpuscular Volume 92.8 fl (80-100); Mean Platelet Volume 9.9 fl (7.4-10.4); Monocytes Absolute Auto 0.3 K/mm3 (0.1-0.6); Monocytes Percent Auto 1.6 % (2.6-8.5); Neutrophils Absolute Auto 3.3 K/mm3 (1.3-6.7); Neutrophils Percent Auto 18.5 % (45.5-73.1); Platelet Count Result 177 k/mm3 (150-375); Red Blood Count 2.78 M/mm3 (4.2-5.4); Red Cell Distribution Width 15.3 % (11.5-14.5); White Blood Count 17.8 K/mm3 (4.5-10.0)
[2020-07-07] MEDS: glipiZIDE 2.5 MG TABLET PO (06:36)
[2020-07-07 06:40] LABS: Anion Gap 7 mmol/L (8-16); Blood Urea Nitrogen 50 mg/dL (7-17); Calcium 8.3 mg/dL (8.4-10.2); Carbon Dioxide 23 mmol/L (22-30); Chloride 113 mmol/L (98-107); Estimated CRCL calculation 23 ml/min; Estimated Glomerular Filt Rate 20; Glucose 110 mg/dL (65-105); Magnesium 2.3 mg/dL (1.6-2.3); Potassium 3.9 mmol/L (3.4-5.0); Sodium 143 mmol/L (137-145)
[2020-07-07 06:53] LABS: Hypochromasia 1+ (NORMAL); Ovalocytes 1+ (NORMAL)
[2020-07-07 06:54] LABS: Platelet Estimate Adequate (Adequate)
[2020-07-07 07:58] LABS: Glucose Point of Care 93 (65-105)
[2020-07-07] MEDS: busPIRone HCL 5 MG TABLET PO ×2 (08:13→12:33)
[2020-07-07] MEDS: ASPIRIN 81 MG ENTERIC TABLET PO (08:13)
[2020-07-07] MEDS: allopurinoL 100 MG TABLET PO (08:13)
[2020-07-07] MEDS: calcitrioL 0.25 MCG CAPSULE PO (08:14)
[2020-07-07] MEDS: CHOLECALCIFEROL 400 UNITS TABLET (VIT D) PO (08:14)
[2020-07-07] MEDS: busPIRone HCL 10 MG TABLET PO ×2 (08:14→12:33)
[2020-07-07] MEDS: CLOPIDOGREL BISULFATE 75 MG TABLET PO (08:14)
[2020-07-07] MEDS: FAMOTIDINE 20 MG/2 ML VIAL IV PUSH (08:14)
[2020-07-07] MEDS: SIMVASTATIN 20 MG TABLET 40 MG PO (08:14)
[2020-07-07] MEDS: FERROUS SULFATE 324 MG TABLET PO (08:14)
[2020-07-07] MEDS: VENLAFAXINE HCL XR 75 MG CAP.ER.24H PO (08:15)
[2020-07-07] MEDS: LACTATED RINGERS 1,000 ML 100 ML IV CONT (08:57)
[2020-07-07 12:15] LABS: Glucose Point of Care 118 (65-105)
[2020-07-07 14:00] VITALS: BP 138/64; PULSE 73; RESP 16; TEMP 36.4; O2SAT 100
--- NOTE | 2020-07-07 14:04 | PM.DS ---
DS: Admitting Diagnosis Admitting Diagnosis Admitting Diagnosis: UTI DS: Discharge Diagnosis Discharge Diagnosis (1) Urinary tract infection: Qualifiers: Hematuria presence: with hematuria Urinary tract infection type: acute cystitis Qualified Code(s): N30.01 - Acute cystitis with hematuria Code(s): N39.0 - Urinary tract infection, site not specified Status: Acute Assessment and Plan: Date of Admission 07/06/20 Date of Discharge 07/07/20 Mrs. Holcomb is a pleasant 70yo F with history of prior stroke with residual right-sided deficits and dysphasia, hypertension, [id number] type 2 diabetes mellitus, chronic anemia, chronic kidney disease, chronic lymphocytic leukemia who presented to the ED for evaluation of hematuria. She describes she has noticed some blood in her urine last 1 week or so, but in the last 2 days she has noticed burning with urination and ongoing blood in her urine. She does experience chronic urinary incontinence. She is able to answer most questions on her own but sometimes has difficulty coming up with answers, speech is slow and dysarthric from her previous stroke. he is not able to use her right arm and she is unable to walk, uses a wheelchair at baseline secondary to prior CVA. She tells me her , Enmanuel, is her main political cartoonist at home. She was found have a UTI and was initially started on IV Rocephin. Urine culture grew group B Streptococcus and she was discharged with oral cephalexin (PCN allergy but tolerated Rocephin fine) to complete the course. Keane catheter was initiated in the ED as they were unable to obtain a urine sample. Keane catheter was removed day of discharge and she was able to void without difficulty prior to leaving the hospital. Blood cultures are pending with no growth to date thus far, will follow to final. She has history of CKD and follows with Dr. Joseph. Her serum Cr was elevated above her baseline, suspect related to poor oral intake and UTI, but improved with IV hydration. Blood pressures were low on arrival dose her oral antihypertensives were held. Blood pressures did improve and her home medications are resumed at discharge. She remains on her home ASA and Plavix therapy due to her history of prior CVA. Hematuria resolved and her Hgb remained stable. Patient and her would like to discharge today and is felt that she is hemodynamically stable for appropriate discharge planning today. She is encouraged to follow-up with her PCP in 1 week. She will follow-up with Dr. Shaw as scheduled for management of her CLL. Patient presents with hematuria, dysuria. Urinalysis grossly abnormal. Treated with 2 doses of IV Rocephin, then urine culture grew group B Streptococcus and she was discharged with oral cephalexin due to a penicillin allergy. She did tolerate IV ceftriaxone without reaction. (2) Acute on chronic renal failure: Qualifiers: Acute renal failure type: unspecified Chronic kidney disease stage: stage 4 (severe) Qualified Code(s): N17.9 - Acute kidney failure, unspecified; N18.4 - Chronic kidney disease, stage 4 (severe) Code(s): N17.9 - Acute kidney failure, unspecified; N18.9 - Chronic kidney disease, unspecified Status: Acute Assessment and Plan: Cr elevated to 3.5 on arrival, improved with IV hydration. Her baseline Cr appears closer to 2.4 -2.7; follows with Dr. Joseph. (3) Essential (primary) hypertension: Code(s): I10 - Essential (primary) hypertension Status: Chronic Assessment and Plan: History of hypertension, with hypotension here may be secondary to dehydration and hypoperfusion. Blood pressures as low as 90/60 on arrival, improved prior to discharge and can continue oral medications. (4
[2020-07-07] MEDS: ACETAMINOPHEN 325 MG TABLET 650 MG PO (15:12)
== END 2020-07-07 17:00 | disposition home or self-care (01) ==
LOC: ANHED 07-06 01:42 → ANH3MEDSUR 07-06 03:11
PROVIDERS: Emergency Medicine; Emergency Medicine Emergency Medical Services; Physician Assistant; Admitting Provider Internal Medicine; Emergency Provider General Practice; PCP Internal Medicine; Visit Provider Internal Medicine
DX: N30.01 Acute cystitis with hematuria (principal); N17.9 Acute kidney failure, unspecified; I69.351 Hemiplegia and hemiparesis following cerebral infarction affecting right dominant side; N18.4 Chronic kidney disease, stage 4 (severe); I69.321 Dysphasia following cerebral infarction; D63.1 Anemia in chronic kidney disease; I12.9 Hypertensive chronic kidney disease with stage 1 through stage 4 chronic kidney disease, or unspecified chronic kidney disease; E11.42 Type 2 diabetes mellitus with diabetic polyneuropathy; E11.22 Type 2 diabetes mellitus with diabetic chronic kidney disease; Z87.891 Personal history of nicotine dependence; Z85.6 Personal history of leukemia; Z79.82 Long term (current) use of aspirin; Z79.02 Long term (current) use of antithrombotics/antiplatelets
CPT/HCPCS: 36415; 51701; 74176; 80048; 81001; 82948; 83605; 83735; 85025; 85027; 87040; 87077; 87086; 87088; 96361; 96365; 96367; 96372; 96376; 97161; 97166; 99285; A9270; G0378; J0131; J0696; J7030; J7040; J7120

== ENCOUNTER 2020-07-14 10:27 | Outpatient (CLI) | payer MEDICARE, SELFPAY ==
[2020-07-14 11:53] LABS: Thyroid Stimulating Hormone 0.852 uIU/mL (0.465-4.680)
== END 2020-07-14 10:28 | disposition home or self-care (01) ==
PROVIDERS: PCP Internal Medicine; Visit Provider Nurse Practitioner
DX: F32.1 Major depressive disorder, single episode, moderate (principal); E34.9 Endocrine disorder, unspecified
CPT/HCPCS: 36415; 83519; 84443

== ENCOUNTER 2020-07-30 10:28 | Outpatient (CLI) | payer MEDICARE, SELFPAY ==
[2020-07-30 12:36] LABS: Iron 36 ug/dL (37-170)
[2020-07-30 12:46] LABS: Percent Iron Saturation 24 % (20-50)
== END 2020-07-30 10:29 | disposition home or self-care (01) ==
PROVIDERS: PCP Internal Medicine; Visit Provider Internal Medicine Hematology & Oncology
DX: N18.4 Chronic kidney disease, stage 4 (severe) (principal); D63.1 Anemia in chronic kidney disease
CPT/HCPCS: 36415; 82728; 83540; 83550

== ENCOUNTER 2020-09-15 20:54 | Emergency (ER) | payer MEDICARE, SELFPAY ==
[2020-09-15] VITALS (12 sets, daily range): BP systolic 95–123; BP diastolic 45–83; PULSE 58–68; RESP 18–28; TEMP 36.8; O2SAT 92–99
--- NOTE | ~2020-09-15 | CT_ITS ---
EXAMINATION: CT diagnostic chest wo con EXAM DATE: 09/15/2020 22:35 INDICATION: Shortness of breath, productive cough, dyspnea. Symptoms 1.5 weeks. Lymphoma. TECHNIQUE: Spiral CT of the chest without contrast. Axial, coronal and sagittal images of the chest were reviewed. Coronal maximum intensity pixel images of chest reviewed. The dose-length product ( DLP) for this examination was 486.37 mGy-cm. The exposure was tailored according to patient size (au to mA exposure control), and iterative reconstruction (ASIR) was used as additional dose reduction te chnique. Comparison is made to prior examination from 04/13/2020. FINDINGS: Linear bibasilar subsegmental atelectasis. There are no pleural or pericardial effusions. Tracheobronchial tree is patent. There is no mediastinal, hilar or axillary lymphadenopathy. T here is no pneumothorax. There is mild cardiomegaly. No evidence of coronary arterial calcificatio n. Again there is mild right axillary and periportal lymphadenopathy. A right axillary lymph node me asures 2.3 x 1.2 cm. A periportal lymph node measures 1.7 x 1.3 cm. The ascending aorta measures 4.4 cm unchanged. There is mild thoracic spondylosis without osteoblastic or osteolytic lesions identifie d. Accounting for differences in technique, there is no significant interval change. IMPRESSION: 1. Mild cardiomegaly. 2. Linear by basilar atelectasis. 3. Persistent mild right axillary, periportal lymphadenopathy. 4. Mildly aneurysmal ascending aorta. Reviewed, dictated and finalized at location A.
--- NOTE | ~2020-09-15 | XR_ITS ---
EXAMINATION: XR chest 2V EXAM DATE: 09/15/2020 21:19 INDICATION: Diff breathing, productive cough, x2 wks, COPD, type 2 diabetes. TECHNIQUE: Frontal and lateral projections of the chest obtained and reviewed. Comparison is made to prior examination from 08/19/2015. FINDINGS: Linear left midlung zone atelectasis. The lungs are otherwise clear. There are no pleural effusions. The cardiomediastinal silhouette is within normal limits. There is no pneumothorax susp ected. The bones and soft tissues are unremarkable. IMPRESSION: Linear left basilar atelectasis. Reviewed, dictated and finalized at location A.
--- NOTE | 2020-09-15 21:00 | ECG_ITS ---
Measurements Intervals [place] Rate: 63 P: 30 WA: 194 QRS: -1 QRSD: 106 T: 10 QT: 419 QTc: 431 Interpretive Statements SINUS RHYTHM LOW QRS VOLTAGE IN PRECORDIAL LEADS BORDERLINE ST-T WAVE ABNORMALITY- ANTEROLAT/INF LEADS BASELINE ARTIFACT- I, II, III, AVR, AVL, AVF BORDERLINE ECG Electronically Signed On 09-16-2020 6:27:50 CDT by Feliz Sifuentes D.O.
[2020-09-15 21:21] LABS: Hematocrit 31.3 % (37.0-47.0); Hemoglobin 9.6 g/dL (12.0-15.0); Mean Corpuscular HGB Conc 30.7 g/dl (32-36); Mean Corpuscular Hemoglobin 29.2 pg (26-34); Mean Corpuscular Volume 95.1 fl (80-100); Mean Platelet Volume 9.3 fl (7.4-10.4); Platelet Count Result 235 k/mm3 (150-375); Red Blood Count 3.29 M/mm3 (4.2-5.4); Red Cell Distribution Width 15.3 % (11.5-14.5); White Blood Count 20.9 K/mm3 (4.5-10.0)
[2020-09-15 21:29] LABS: Anion Gap 13 mmol/L (8-16); Blood Urea Nitrogen 55 mg/dL (7-17); Calcium 9.4 mg/dL (8.4-10.2); Carbon Dioxide 22 mmol/L (22-30); Chloride 104 mmol/L (98-107); Estimated CRCL calculation 22 ml/min; Estimated Glomerular Filt Rate 15; Glucose 135 mg/dL (65-105); Potassium 3.9 mmol/L (3.4-5.0); Sodium 139 mmol/L (137-145)
[2020-09-15 21:46] LABS: Anisocytosis 2+ (NORMAL); Eosinophils Absolute Manual 0.41 K/mm3 (0.02-0.5); Eosinophils Percent Manual 2 % (0-4); Hypochromasia 1+ (NORMAL); Lymphocytes Absolute Manual 13.79 K/mm3 (1.1-4.5); Monocytes Absolute Manual 0.62 K/mm3 (0.1-0.90); Monocytes Percent Manual 3 % (3-9); Neutrophils Percent Manual 29 % (46-73); Platelet Estimate Adequate (Adequate); Total Cells Counted 100
[2020-09-15] MEDS: SODIUM CHLORIDE 0.9% IV 1,000 ML 999 ML IV CONT (21:59)
[2020-09-15 22:23] LABS: Prothrombin Time 13.4 Seconds (11.1-14.7)
[2020-09-15 22:24] LABS: Partial Thromboplastin Time 29.2 SECONDS (22.3-36.8)
--- NOTE | 2020-09-15 22:42 | ED.GENADULT ---
HPI - General Adult General Chief complaint: Upper Respiratory Infection Stated complaint: diff breathing, productive cough Time Seen by Provider: 09/15/20 21:33 Source: patient, family, RN notes reviewed and old records reviewed Mode of arrival: ambulatory Limitations: no limitations History of Present Illness HPI narrative: Patient is a 70-year-old female who presents to emergency department for evaluation of upper respiratory symptoms for the last week patient has had cough productive of green phlegm. Patient has had continued coughing denies any diarrhea or other upper respiratory symptoms is vaccinated for Covid. Patient with history of CVA. Patient lives at home with her and has a caregiver that stays with them as well. Patient's been attempting [id number] medications with minimal improvement presents per private vehicle for evaluation of her cough. Related Data Home Medications Medication Instructions Recorded Confirmed aspirin 81 mg tablet,delayed 81 mg PO DAILY 07/15/19 09/10/20 release Adults Multivitamin 1 tablet PO DAILY 02/03/20 09/10/20 calcitriol 0.25 mcg PO QMWF 02/03/20 09/10/20 cholecalciferol (vitamin D3) 10 mcg PO DAILY 02/03/20 09/10/20 [Vitamin D3] carvedilol 25 mg PO BID 07/06/20 09/10/20 Allergies Allergy/AdvReac Type Severity Reaction Status Date / Time Penicillins Allergy Unknown Swelling Verified 09/15/20 21:05 Review of Systems Review of Systems: All systems reviewed & are unremarkable except as noted in HPI and below PMFSH Past Medical History Medical History history Anemia in CKD (chronic kidney disease) Chronic kidney disease, stage 4 (severe) Chronic obstructive pulmonary disease, unspecified CLL (chronic lymphocytic leukemia) Colon cancer screening 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 Elevated parathyroid hormone Essential (primary) hypertension Hyperlipidemia, unspecified Screening for breast cancer Seizure disorder Sleep apnea, unspecified Type 2 diabetes mellitus with diabetic polyneuropathy, without long-term current use of insulin Surgical History Surgical History H/O dilation and curettage H/O exploratory laparotomy History of carpal tunnel release History of elbow surgery History of knee replacement History of partial hysterectomy Family History Family History Mother Family history of diabetes mellitus in first degree relative Diabetes mellitus Sibling Family history of diabetes mellitus in first degree relative Father Patient's father is Acute myocardial infarction Family history of congestive heart failure Other Family history of lymphoma Social History Social History Social History: Ms. Holcomb lives at home with her . She reports drinking one or two beers per month. She reports smoking in her younger years but cannot quantify more details at this time. He designates her as her surrogate decision maker and wishes to be full code status. PCP: Dr Raul Ibarra Smoking packs per day: 2 Smoking cigarettes per day: 40.0 Years smoked: 20 Smoking pack-years: 40.00 Smoking status: Former smoker Smoking end date: 03/19/19 Alcohol intake: current Substance use: never Substance use type: does not use Gender identity (if verbalized by the patient): Female Spiritual care concerns: No Exam Narrative: Exam Narrative: GENERAL: Well-appearing, obese, and in no acute distress. HEAD: Normocephalic, atraumatic. EYES: PERRLA and EOMI. ENT: Nares clear, no rhinorrhea or epistaxis. Mucous membranes moist. Oropharynx without tonsillar hypertrophy exudate or other lesions. NECK: Supple. No adenopathy or masses. CHEST: Clear to auscultation. No respiratory dis
[2020-09-15] MEDS: BENZONATATE 100 MG CAPSULE 200 MG PO (23:03)
[2020-09-16] VITALS: PULSE 58; RESP 18
[2020-09-16 00:01] VITALS: BP 135/62; PULSE 61; RESP 21; O2SAT 100
[2020-09-16 00:47] LABS: PCO2 ABG 46.3 mmHg (35.0-45.0); pH ABG 7.338 (7.350-7.450)
[2020-09-16 00:48] LABS: PO2 ABG 46.1 mmHg (80.0-100.0)
[2020-09-16 00:49] LABS: Base Excess ABG -1.6 mEq/l (+/-2.0); HCO3 ABG 24.3 mEq/l (22.0-26.0); Oxygen Saturation ABG 79.2 % (95.0-100.0); Total Hemoglobin 9.9 g/dL (12.0-18.0)
[2020-09-16 00:50] LABS: Alveolar/Arterial O2 Gradient 48.2 mmHg; Carboxyhemoglobin 0.1 % THb (0-2.0); Device ROOM AIR; Fractional Inspired Oxygen 21 %; Methemoglobin ABG 0.1 %THb (0-1.5); Modified Allen's Test Pass; Oxygen Content ABG 11.3 %vol (16.0-22.0); Oxyhemoglobin 80.8 % THb (90.0-100.0); Site Drawn RIGHT RADIAL
== END 2020-09-16 00:16 | disposition home or self-care (01) ==
PROVIDERS: Emergency Medicine Emergency Medical Services; Emergency Provider Emergency Medicine; PCP Internal Medicine
DX: J06.9 Acute upper respiratory infection, unspecified (principal); I12.9 Hypertensive chronic kidney disease with stage 1 through stage 4 chronic kidney disease, or unspecified chronic kidney disease; E11.22 Type 2 diabetes mellitus with diabetic chronic kidney disease; N18.4 Chronic kidney disease, stage 4 (severe); D63.1 Anemia in chronic kidney disease; Z79.84 Long term (current) use of oral hypoglycemic drugs; J44.9 Chronic obstructive pulmonary disease, unspecified; I69.922 Dysarthria following unspecified cerebrovascular disease; E78.5 Hyperlipidemia, unspecified; G40.909 Epilepsy, unspecified, not intractable, without status epilepticus; E11.42 Type 2 diabetes mellitus with diabetic polyneuropathy; G47.30 Sleep apnea, unspecified; Z96.659 Presence of unspecified artificial knee joint; Z87.891 Personal history of nicotine dependence; I51.7 Cardiomegaly; I71.2 Thoracic aortic aneurysm, without rupture; R94.31 Abnormal electrocardiogram [ECG] [EKG]
CPT/HCPCS: 36415; 36600; 71046; 71250; 80048; 82375; 82805; 83050; 85025; 85610; 85730; 87804; 93005; 96360; 99284; A9270; J7030

== ENCOUNTER 2020-11-03 11:35 | Outpatient (CLI) | payer MEDICARE, SELFPAY ==
[2020-11-03 12:56] LABS: Alanine Aminotransferase 15 U/L (4-35); Albumin Level 3.8 g/dL (3.5-5.1); Alkaline Phosphatase 109 U/L (38-126); Anion Gap 5 mmol/L (8-16); Aspartate Amino Transferase 20 U/L (14-36); Bilirubin,Total 0.4 mg/dL (0.2-1.3); Blood Urea Nitrogen 45 mg/dL (7-17); Calcium 9.2 mg/dL (8.4-10.2); Carbon Dioxide 27 mmol/L (22-30); Chloride 104 mmol/L (98-107); Cholesterol 174 mg/dL (0-200); Estimated Glomerular Filt Rate 17; Glucose 124 mg/dL (65-110); HDL Direct 33 mg/dL; Potassium 4.2 mmol/L (3.4-5.0); Sodium 136 mmol/L (137-145); Triglycerides 156 mg/dL (<150); Uric Acid 6.6 mg/dL (2.5-7.5)
[2020-11-03 13:04] LABS: Hemoglobin A1C 7.7 % (<5.7)
[2020-11-03 13:07] LABS: LDL Cholesterol Direct 83 mg/dL
[2020-11-03 13:34] LABS: Vitamin D 25 Hydroxy 63.2 ng/mL
[2020-11-11 14:04] LABS: Parathyroid Hormone Related Pr 16
== END 2020-11-03 11:36 | disposition home or self-care (01) ==
PROVIDERS: PCP Internal Medicine; Visit Provider Nurse Practitioner
DX: E11.42 Type 2 diabetes mellitus with diabetic polyneuropathy (principal); F32.1 Major depressive disorder, single episode, moderate; E34.9 Endocrine disorder, unspecified; M1A.9XX0 Chronic gout, unspecified, without tophus (tophi); E78.00 Pure hypercholesterolemia, unspecified; E55.9 Vitamin D deficiency, unspecified
CPT/HCPCS: 36415; 80053; 80061; 82306; 83036; 83519; 84443; 84550

== ENCOUNTER 2020-11-04 12:52 | Outpatient (NON) | payer MEDICARE, SELFPAY ==
[2020-11-04 13:32] LABS: Total Protein Urine Random 23 mg/dL
[2020-11-04 13:36] LABS: Creatinine Urine 81.7 mg/dL; Ur Ttl Prot Creatinine Ratio 0.28 mg/mg (0-0.20)
== END 2020-11-04 12:53 | disposition home or self-care (01) ==
PROVIDERS: PCP Internal Medicine; Visit Provider Internal Medicine Nephrology
DX: I12.9 Hypertensive chronic kidney disease with stage 1 through stage 4 chronic kidney disease, or unspecified chronic kidney disease (principal); N18.4 Chronic kidney disease, stage 4 (severe); E11.29 Type 2 diabetes mellitus with other diabetic kidney complication; R53.81 Other malaise
CPT/HCPCS: 82570; 84156

== ENCOUNTER 2020-12-16 07:30 | Outpatient (RCR) | payer MEDICARE, SELFPAY ==
[2020-11-25 12:32] VITALS: BMI 48.1
== END 2021-01-19 13:42 | disposition home or self-care (01) ==
LOC: ANHWOC 07:30
PROVIDERS: PCP Internal Medicine; Visit Provider Internal Medicine
DX: L89.309 Pressure ulcer of unspecified buttock, unspecified stage (principal); I63.9 Cerebral infarction, unspecified
CPT/HCPCS: 99211; 99212; G0463

== ENCOUNTER 2021-01-28 08:25 | Outpatient (CLI) | payer MEDICARE, SELFPAY ==
[2021-01-28 09:33] LABS: Alanine Aminotransferase 16 U/L (4-35); Albumin Level 3.7 g/dL (3.5-5.1); Alkaline Phosphatase 112 U/L (38-126); Anion Gap 12 mmol/L (8-16); Aspartate Amino Transferase 19 U/L (14-36); Bilirubin,Total 0.2 mg/dL (0.2-1.3); Blood Urea Nitrogen 52 mg/dL (7-17); Calcium 8.9 mg/dL (8.4-10.2); Carbon Dioxide 24 mmol/L (22-30); Chloride 102 mmol/L (98-107); Cholesterol 169 mg/dL (0-200); Estimated Glomerular Filt Rate 16; Glucose 266 mg/dL (65-110); HDL Direct 32 mg/dL; Potassium 4.6 mmol/L (3.4-5.0); Sodium 138 mmol/L (137-145); Triglycerides 161 mg/dL (<150); Uric Acid 6.1 mg/dL (2.5-7.5)
[2021-01-28 09:51] LABS: Vitamin D 25 Hydroxy 62.6 ng/mL
[2021-01-28 09:54] LABS: Hemoglobin A1C 6.9 % (<5.7)
[2021-01-28 09:54] LABS: LDL Cholesterol Direct 89 mg/dL
[2021-01-28 10:13] LABS: HIV 1/2 Ab P24 Ag Result Negative (Negative)
== END 2021-01-28 08:26 | disposition home or self-care (01) ==
PROVIDERS: PCP Internal Medicine; Visit Provider Nurse Practitioner
DX: E11.42 Type 2 diabetes mellitus with diabetic polyneuropathy (principal); M1A.9XX0 Chronic gout, unspecified, without tophus (tophi); F32.1 Major depressive disorder, single episode, moderate; E78.5 Hyperlipidemia, unspecified; E55.9 Vitamin D deficiency, unspecified; Z11.4 Encounter for screening for human immunodeficiency virus [HIV]; R53.83 Other fatigue
CPT/HCPCS: 36415; 80053; 80061; 82306; 83036; 84443; 84550; 86703; G0432

== ENCOUNTER 2021-03-29 10:11 | Inpatient (IN) | payer MEDICARE, SELFPAY ==
--- NOTE | ~2021-03-29 | US_ITS ---
EXAMINATION: US renal BI DATE: 04/10/2021 14:57 INDICATION: Acute kidney injury TECHNIQUE: Multiple grayscale and Doppler ultrasound images of the kidneys were obtained. COMPARISON: 11/08/2017 FINDINGS: The right kidney measures 7.7 x 3.2 x 3.8 cm. The left kidney measures 10.9 x 5.4 x 6.1 cm and contains cysts measuring up to 2.6 cm. The kidneys demonstrate normal parenchymal echogenicity. T here is no hydronephrosis. The bladder is normal. IMPRESSION: 1. Unremarkable kidneys without hydronephrosis. Reviewed, dictated and finalized at location F. RIKE HAMMER OPERATOR
--- NOTE | ~2021-03-29 | CT_ITS ---
EXAMINATION: CT brain wo con EXAM DATE: Altered mental status. INDICATION: Altered mental status TECHNIQUE: Spiral CT of the head was performed without contrast. Axial, coronal and sagittal images were reviewed. The dose-length product (DLP) for this examination was 605.33 mGy-cm. The exposure w as tailored according to patient size, and iterative reconstruction (ASIR) was used as additional dos e reduction technique. Comparison is made to prior examination from 11/03/2016. FINDINGS: There is no significant interval change. There is moderate microangiopathy and cerebral atr ophy. Old bilateral thalamic lacunar infarctions. Old lacunar infarction in the anterior limb of the right internal capsule. Dural ossifications. No obstructive hydrocephalus, intraparenchymal brain mas s, acute intracranial hemorrhage or extra-axial collections. No evidence of acute infarction. Left-si ded cataract surgery. Moderate ethmoid mucoperiosteal thickening. IMPRESSION: 1. No acute intracranial findings or interval change. 2. Old lacunar infarctions, microangiopathy and atrophy. Reviewed, dictated and finalized at location B. ING ANALYST
--- NOTE | ~2021-03-29 | CT_ITS ---
EXAMINATION: CT abdomen pelvis wo con DATE: 04/05/2021 15:17 INDICATION: Right hydronephrosis. TECHNIQUE: Computed tomography (CT) of the abdomen and pelvis was performed without intravenous contr ast. Automated exposure control and iterative reconstruction technique were employed. The dose-length product was 1382.70 mGy-cm. COMPARISON: CT abdomen and pelvis 03/29/2021 FINDINGS: The visualized portions of the lung bases demonstrate patchy groundglass and airspace opaci ties. No pleural effusion. The heart size is normal. No pericardial effusion. The liver, gallbladder, spleen, pancreas, and adrenal glands are normal. There are cysts in the kidneys measuring up to 4.2 cm the left. There is mild right hydronephrosis and hydroureter with urothelial thickening. There is a 3 mm stone in left kidney. There is bladder wall thickening with surrounding fat stranding. There a re no dilated loops of bowel. There are changes of appendectomy. There are no pathologically enlarged lymph nodes. There is no free intraperitoneal fluid. There is severe lumbar and thoracic spondylosis . IMPRESSION: 1. Worsened diffuse lung disease, consistent with COVID-19 pneumonia. 2. Improved mild right hydronephrosis and hydroureter with persistent right-sided urothelial thickeni ng and persistent bladder wall thickening with surrounding fat stranding, most likely cystitis and ri ght-sided pyelitis. Reviewed, dictated and finalized at location A. FINISHER IMPRESSION: 1. Worsened diffuse lung disease, consistent with COVID-19 pneumonia. 2. Improved mild right hydronephrosis and hydroureter with persistent right-christian ed urothelial thickening and persistent bladder wall thickening with surroundin g fat stranding, most likely cystitis and right-sided pyelitis.
--- NOTE | ~2021-03-29 | XR_ITS ---
XR chest ET placement DATE: 04/14/2021 22:23 INDICATION: ET tube placement TECHNIQUE: Portable AP chest on 04/14/2021 at 2212 hours COMPARISON: 04/14/2021 portable AP chest at 1513 hours FINDINGS: ET tube in satisfactory position 2.1 cm above landy. NG tube in stomach. No central lines. Persistent patchy bilateral pulmonary infiltrates, not significant change since earlier today conside ring differences in technique. IMPRESSION: ET tube in satisfactory position 2.1 cm above landy NG tube in stomach Persistent bilateral pulmonary infiltrates Reviewed, dictated and finalized at Location A. Reviewed, dictated and finalized at location A. Y MACHINE OPERATOR
--- NOTE | ~2021-03-29 | XR_ITS ---
EXAMINATION: XR chest 1V portable DATE: 04/14/2021 15:23 INDICATION: Pneumonia. TECHNIQUE: A single frontal view of the chest was obtained. COMPARISON: Chest single view 04/12/2021 CT abdomen and pelvis 04/05/2021 FINDINGS: There are patchy airspace opacities in all lung zones bilaterally, worst in the right lower lung zone and left mid and lower lung zones. No pleural effusion or pneumothorax. The heart size is normal. IMPRESSION: 1. Diffuse lung disease with worsening on the left, consistent with COVID-19 pneumonia. Reviewed, dictated and finalized at location A. ER HELPER IMPRESSION: 1. Diffuse lung disease with worsening on the left, consistent with COVID-19 pn eumonia.
--- NOTE | ~2021-03-29 | XR_ITS ---
EXAMINATION: XR chest 1V portable EXAM DATE: 04/15/2021 08:43 INDICATION: Respiratory failure. TECHNIQUE: Portable AP frontal chest x-ray was obtained. Comparison is made to prior examination from 04/14/2021. FINDINGS: Endotracheal tube tip is 4 centimeters above the landy. There is a nasogastric tube seen with tip collimated off the study, but below the left hemidiaphragm. Diffuse bilateral airspace disease consistent with COVID pneumonia. There are no sizable pleural eff usions. There is no pneumothorax suspected. The cardiomediastinal silhouette is prominent but mag nified on this AP technique. The bones and soft tissues are unremarkable. There is no significant interval change compared to prior exam. IMPRESSION: 1. Tubes in position. 2. Diffuse pneumonia unchanged. Reviewed, dictated and finalized at location A. NILE COURT JUDGE
--- NOTE | ~2021-03-29 | XR_ITS ---
EXAMINATION: XR chest 1V portable DATE: 04/12/2021 14:04 INDICATION: Pneumonia. TECHNIQUE: A single frontal view of the chest was obtained. COMPARISON: Chest single view 04/09/2021, CT abdomen and pelvis 04/05/2021 FINDINGS: There are patchy airspace opacities in all lung zones bilaterally. No pleural effusion or p neumothorax. The heart size is normal. IMPRESSION: 1. Diffuse lung disease with improvement in right midlung zone, consistent with COVID-19 pneumonia. Reviewed, dictated and finalized at location A. L PRESS OPERATOR
--- NOTE | ~2021-03-29 | XR_ITS ---
EXAMINATION: XR chest 1V portable INDICATION: Shortness of breath, COVID 19 TECHNIQUE: Portable AP chest at 1513 hours COMPARISON: 09/15/2020 FINDINGS: There is chronic atelectasis or scarring of the left midlung zone. There are minimal airspa ce opacities of the lung bases. No pleural effusion or pneumothorax is identified. Cardiomegaly is no delisa. IMPRESSION: 1. Minimal bibasilar airspace opacities, consistent with atelectasis versus pneumonia. Reviewed, dictated and finalized at location F. AT PHOTOCOMPOSING MACHINE OPERATOR IMPRESSION: 1. Minimal bibasilar airspace opacities, consistent with atelectasis versus pne umonia.
--- NOTE | ~2021-03-29 | XR_ITS ---
EXAMINATION: XR chest 1V portable INDICATION: Pneumonia and hypertension TECHNIQUE: Portable AP chest at 1727 hours COMPARISON: 04/06/2021 FINDINGS: There is diffuse lung disease with moderate interval worsening. No pleural effusion or pneu mothorax is identified. The cardiomediastinal silhouette is stable. IMPRESSION: 1. Diffuse lung disease with interval worsening, consistent with pneumonia and/or pulmonary edema. Reviewed, dictated and finalized at location F. N CLEANING SUPERVISOR IMPRESSION: 1. Diffuse lung disease with interval worsening, consistent with pneumonia and/ or pulmonary edema.
--- NOTE | ~2021-03-29 | XR_ITS ---
EXAMINATION: XR chest 1V portable EXAM DATE: 04/02/2021 17:10 INDICATION: sob/ wheezy . TECHNIQUE: Portable AP frontal chest x-ray was obtained. Comparison is made to prior examination from 03/29/2021. FINDINGS: There is indistinct basilar reticulation, probably small amount of pneumonia or edema. Line ar left midlung zone subsegmental atelectasis. No pneumothorax. There is aortic arteriosclerosis. The cardiomediastinal silhouette is prominent but magnified on this AP technique. There are bony degener ative changes. IMPRESSION: Small amount of basilar edema or pneumonia. Reviewed, dictated and finalized at location G. RAFT LOADMASTER SUPERINTENDENT
--- NOTE | ~2021-03-29 | XR_ITS ---
XR abdomen NG/feed tube insert DATE: 04/13/2021 18:57 INDICATION: NG tube placement TECHNIQUE: Portable AP view on 04/13/2021 1849 hours COMPARISON: None FINDINGS: NG tube is in the right lower lobe of the lung. 4rd Med Surg Nurse Jorge A was notified by telephone by Dr. Law on 04/13/2021 [id number] hours. Extensive patchy bilateral pulmonary infiltrates. IMPRESSION: NG tube needs to be withdrawn from the right lower lobe. I am uterus was notified. Reviewed, dictated and finalized at Location A. Reviewed, dictated and finalized at location A. EMS ANALYSIS MANAGER IMPRESSION: NG tube needs to be withdrawn from the right lower lobe. I am uteru s was notified.
--- NOTE | ~2021-03-29 | XR_ITS ---
XR abdomen NG/feed tube insert DATE: 04/14/2021 22:23 INDICATION: NG tube placement TECHNIQUE: Portable AP view on 04/14/2021 at 2213 hours COMPARISON: 04/13/2021 KUB for NG tube FINDINGS: NG tube is present in the upper stomach, the proximal side-port approximately 5.5 cm distal to the diaphragmatic hiatus. Extensive patchy bilateral pulmonary tracer again noted. IMPRESSION: NG tube in proximal stomach Reviewed, dictated and finalized at Location A. Reviewed, dictated and finalized at location A. IRONER IMPRESSION: NG tube in proximal stomach
--- NOTE | ~2021-03-29 | CT_ITS ---
EXAMINATION: CT abdomen pelvis wo con DATE: 03/29/2021 11:40 INDICATION: Right lower quadrant abdominal pain. TECHNIQUE: Computed tomography (CT) of the abdomen and pelvis was performed without intravenous contr ast. Automated exposure control and iterative reconstruction technique were employed. The dose-length product was 1411.89 mGy-cm. COMPARISON: CT abdomen and pelvis 07/05/2020, 04/13/2020 FINDINGS: The visualized portions of the lung bases demonstrate mild atelectasis and mild bronchiecta sis. Calcified right hilar lymph nodes are consistent with old granulomatous disease. No pleural effu rae. The heart size is normal. There are coronary artery calcifications. No pericardial effusion. Th e liver is normal. Calcifications in the spleen are consistent with old granulomatous disease. The ga llbladder, pancreas, and adrenal glands are normal. There are cysts in the kidneys measuring up to 3. 8 cm on the left. There is cortical thinning of the kidneys. There is mild right hydronephrosis and h ydroureter. The bladder is compressed. There is diffuse bladder wall thickening with surrounding fat stranding. There is urothelial thickening in distal right ureter. There is a 3 mm stone in left kidne y. There are changes of appendectomy. There are no dilated loops of bowel. A mildly enlarged aortocav al node measures 10 x 12 mm. There is mild left para-aortic and periportal lymphadenopathy. There is no free intraperitoneal fluid. There is severe thoracic and lumbar spondylosis. IMPRESSION: 1. Mild right hydronephrosis and hydroureter, new from 07/05/2020. 2. Diffuse bladder wall thickening. Urothelial thickening in the distal right ureter. These findings may be inflammation/infection, but malignancy cannot be excluded. 3. 3 mm nonobstructing left kidney stone. 4. Chronic mild periportal and retroperitoneal lymphadenopathy, likely reactive. Reviewed, dictated and finalized at location B. IQUE CUTTER IMPRESSION: 1. Mild right hydronephrosis and hydroureter, new from 07/05/2020. 2. Diffuse bladder wall thickening. Urothelial thickening in the distal right u reter. These findings may be inflammation/infection, but malignancy cannot be e xcluded. 3. 3 mm nonobstructing left kidney stone. 4. Chronic mild periportal and retroperitoneal lymphadenopathy, likely reactive .
--- NOTE | ~2021-03-29 | XR_ITS ---
EXAMINATION: XR chest 1V portable DATE: 04/06/2021 15:34 INDICATION: Pneumonia. TECHNIQUE: A single frontal view of the chest was obtained. COMPARISON: Chest single view 04/02/2017, CT abdomen and pelvis 04/05/2021 FINDINGS: There are patchy airspace opacities in all lung zones bilaterally. No pleural effusion or p neumothorax. The heart size is normal. IMPRESSION: 1. Mildly worsened diffuse lung disease, consistent with COVID-19 pneumonia. Reviewed, dictated and finalized at location A. ER MACHINIST
[2021-03-29 10:17] VITALS: BP 136/76; PULSE 77; RESP 20; TEMP 37.1; O2SAT 98
--- NOTE | 2021-03-29 10:27 | ECG_ITS ---
Measurements Intervals [place] Rate: 79 P: 113 [place]: 204 QRS: 188 QRSD: 90 T: 177 QT: 362 QTc: 415 Interpretive Statements SINUS RHYTHM ATRIAL PREMATURE COMPLEX ARM LEADS REVERSED LOW VOLTAGE- PRECORDIAL LEADS BORDERLINE T WAVE ABNORMALITY- ANTERIOR LEADS BASELINE ARTIFACT- I, II, III, AVR, AVL, AVF BORDERLINE ECG Electronically Signed On 03-29-2021 11:34:50 PSYCHOLOGIST CLINICAL by Feliz Sifuentes D.O.
[2021-03-29 10:38] LABS: Basophils Percent Auto 0.3 % (0.2-1.2); Eosinophils Absolute Auto 0.3 K/mm3 (0-0.3); Eosinophils Percent Auto 3.2 % (0-4.4); Hematocrit 33.2 % (37.0-47.0); Hemoglobin 10.6 g/dL (12.0-15.0); Immature Granulocyte Absolute 0.02 K/mm3 (0.00-0.031); Immature Granulocyte Percent A 0.2 % (0-0.5); Lymphocytes Absolute Auto 4.34 K/mm3 (0.9-3.2); Lymphocytes Percent Auto 50.3 % (18.3-44.2); Mean Corpuscular HGB Conc 31.9 g/dl (32-36); Mean Corpuscular Hemoglobin 29.6 pg (26-34); Mean Corpuscular Volume 92.7 fl (80-100); Mean Platelet Volume 9.7 fl (7.4-10.4); Monocytes Absolute Auto 0.3 K/mm3 (0.1-0.6); Monocytes Percent Auto 3.9 % (2.6-8.5); Neutrophils Absolute Auto 3.6 K/mm3 (1.3-6.7); Neutrophils Percent Auto 42.1 % (45.5-73.1); Platelet Count Result 174 k/mm3 (150-375); Red Blood Count 3.58 M/mm3 (4.2-5.4); Red Cell Distribution Width 16.8 % (11.5-14.5); White Blood Count 8.6 K/mm3 (4.5-10.0)
[2021-03-29 10:57] LABS: Alanine Aminotransferase 15 U/L (4-35); Albumin Level 3.9 g/dL (3.5-5.1); Alkaline Phosphatase 131 U/L (38-126); Anion Gap 14 mmol/L (8-16); Aspartate Amino Transferase 17 U/L (14-36); Bilirubin,Total 0.4 mg/dL (0.2-1.3); Blood Urea Nitrogen 37 mg/dL (7-17); Calcium 9.3 mg/dL (8.4-10.2); Carbon Dioxide 22 mmol/L (22-30); Chloride 100 mmol/L (98-107); Estimated CRCL calculation 18 ml/min; Estimated Glomerular Filt Rate 17; Glucose 230 mg/dL (65-110); Potassium 4.4 mmol/L (3.4-5.0); Sodium 136 mmol/L (137-145)
--- NOTE | 2021-03-29 11:06 | ED.GENADULT ---
HPI - General Adult General Chief complaint: Weakness Stated complaint: weak, cold or something Time Seen by Provider: 03/29/21 10:52 History of Present Illness HPI narrative: 71-year-old female presented to the emergency department for evaluation of increased generalized weakness. Patient does have leukemia and did get a shot of Neupogen on Sunday. Patient states after her clinic visit on Sunday she was feeling fine. Patient states on Sunday he began feeling increased fatigue. Patient also states that she has developed some lower abdominal pain. Patient denies any associated nausea or vomiting. Patient does report constipation for the past 3 days. Patient does have a history of . Patient unsure of any other abdominal surgeries. Related Data Home Medications Medication Instructions Recorded Confirmed aspirin 81 mg tablet,delayed 81 mg PO DAILY 07/15/19 03/25/21 release Adults Multivitamin 1 tablet PO DAILY 02/03/20 03/25/21 calcitriol 0.25 mcg PO QMWF 02/03/20 03/25/21 cholecalciferol (vitamin D3) 10 mcg PO DAILY 02/03/20 03/25/21 [Vitamin D3] Allergies Allergy/AdvReac Type Severity Reaction Status Date / Time Penicillins Allergy Unknown Swelling Verified 03/25/21 09:27 Review of Systems Review of Systems: CONSTITUTIONAL: Denies fever, chills, or sweats. does report increased generalized fatigue EYES: Denies visual changes, redness, or discharge. ENT: Denies rhinorrhea, congestion, sore throat, or otalgia. CARDIOVASCULAR: Denies chest pain, palpitations, or edema. RESPIRATORY: Denies cough or dyspnea. GASTROINTESTINAL: Denies nausea, vomiting, or diarrhea. Patient does report lower right abdominal discomfort and constipation GENITOURINARY: Denies dysuria or hematuria. SKIN: Denies rash or itching. MUSCULOSKELETAL: Denies back pain, joint pain, or myalgia. NEUROLOGIC: Denies headache, numbness, or weakness. PSYCHIATRIC: Denies anxiety or depression. 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 Elevated parathyroid hormone Essential (primary) hypertension Hyperlipidemia, unspecified Screening for breast cancer Seizure disorder Sleep apnea, unspecified Type 2 diabetes mellitus with diabetic polyneuropathy, without long-term current use of insulin Surgical History Surgical History H/O dilation and curettage H/O exploratory laparotomy History of carpal tunnel release History of elbow surgery History of knee replacement History of partial hysterectomy Family History Family History Mother Family history of diabetes mellitus in first degree relative Diabetes mellitus Sibling Family history of diabetes mellitus in first degree relative Father Patient's father is Acute myocardial infarction Family history of congestive heart failure Other Family history of lymphoma Social History Social History Social History: Ms. Holcomb lives at home with her . She reports drinking one or two beers per month. She reports smoking in her younger years but cannot quantify more details at this time. He designates her as her surrogate decision maker and wishes to be full code status. PCP: Dr Raul Ibarra Smoking packs per day: 2 Smoking cigarettes per day: 40.0 Years smoked: 20 Smoking pack-years: 40.00 Smoking status: Former smoker Smoking end date: 03/19/19 Alcohol intake: former Substance use: never Substance use type: does not use Gender identity (if verbalized by the patient): Female Spiritu
[2021-03-29 11:35] LABS: Add Urine Microscopic? YES; Appearance Urine Turbid (Clear); Bacteria Urine 1+ /hpf; Bilirubin Urine Negative (Negative); Blood Urine 1+ (Negative); Color Urine Yellow (Yellow); Glucose Urine UA Negative (Negative); Ketones Urine Negative (Negative); Leukocyte Esterase Ur 3+ LEU/UL (Negative); Nitrate Urine Negative (Negative); Protein Urine 1+ mg/dL (Negative); RBC Urine 21-50 /hpf (0-2); Specific Grav Ur 1.006 (1.001-1.035); Squamous Epithelial Cell Urine Many /hpf (Few); Urobilinogen Urine Negative mg/dL (<2.0); WBC Clumps Urine Present /HPF; WBC Urine >75 /hpf
[2021-03-29 12:50] VITALS: BP 107/53; PULSE 98; RESP 20; O2SAT 99
[2021-03-29 13:54] LABS: SARS-CoV-2 RNA PCR Positive
--- NOTE | 2021-03-29 14:50 | PM.IMHP ---
H&P: HPI History of Present Illness Date/Time: 03/29/21 14:50 Chief Complaint: Weakness. Narrative: This is a pleasant 71-year-old female with history of stroke with right-sided deficits and dysphagia, hypertension, gsg-[id number] type 2 diabetes mellitus, chronic anemia, chronic kidney disease, and chronic lymphocytic leukemia who presented to the ED earlier today for evaluation of weakness. She had a Neupogen injection last Sunday and reports feeling in her usual state of health at that time. The following day she felt very fatigued and she has had progressive weakness since that time. Vital signs were stable on arrival today. Her labs show chronic abnormalities which appear to be stable. Urinalysis is consistent with possible urinary tract infection with further questioning she does mention having mild right mid and lower abdominal discomfort as well as dysuria for the past couple of weeks. Subsequent CT of the abdomen pelvis showed mild right hydronephrosis and hydroureter as well as diffuse bladder wall thickening with urothelial thickening in the distal right ureter. She also tested positive for SARS-CoV-2 by PCR and is being admitted in this setting. At the time my evaluation she is eating lunch and reports feeling a bit better. She was not vaccinated for COVID and she tells me that she never leaves the house and is impossible for her to have COVID. She denies sick contacts, fever, sinus congestion, rhinorrhea, otalgia, odynophagia, cough, nausea, vomiting, and diarrhea. In fact she feels a bit constipated. Review of Systems Review of Systems: Twelve systems were reviewed and are negative except for as per HPI. [facility] Past Medical History Medical History (Updated 03/29/21 @ 15:06 by Kianna Guo PA-C) Anemia of chronic disease Cerebrovascular accident (09/2008) 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 Chronic kidney disease, stage 4 (severe) Chronic lymphocytic leukemia Chronic obstructive pulmonary disease, unspecified Essential (primary) hypertension Hyperlipidemia, unspecified Seizure disorder Sleep apnea, unspecified Type 2 diabetes mellitus with diabetic polyneuropathy, without long-term current use of insulin Vitamin D deficiency, unspecified Surgical History Surgical History (Updated 03/29/21 @ 15:02 by Kianna Guo PA-C) History of carpal tunnel release History of dilation and curettage History of elbow surgery History of exploratory laparotomy History of knee replacement History of partial hysterectomy Family History Family History Mother Family history of diabetes mellitus in first degree relative Diabetes mellitus Sibling Family history of diabetes mellitus in first degree relative Father Patient's father is Acute myocardial infarction Family history of congestive heart failure Other Family history of lymphoma Social History Social History (Updated 03/29/21 @ 23:50 by Kianna Guo PA-C) Social History: Mrs. Holcomb lives at home with her and daughter. Consumes alcohol rarely and in moderation. She smoked up to 2 packs of cigarettes a day for about 20 years. Her and daughter are both smokers. No illicit substance use. She designates her , Jones Holcomb, as her surrogate decision maker. Code status: Full code. Meds Home Medications and Allergies Home Medications Medication Instructions Recorded Confirmed Type aspirin 81 mg tablet,delayed 81 mg PO DAILY 07/15/19 03/29/21 History release Adults Multivitamin 1 tablet PO DAILY 02/03/20 03/29/21 History calcitriol 0.25 mcg PO QMWF 02/03/20 03/29/21 History cholecalciferol (vitamin D3) 10 mcg PO DAILY 02/03/20 03/29/21 History [Vitamin D3] ferrous sulfate 325 mg PO DAILY 30 Days #30 tablet 07/07/20 03/29/21 Rx buspirone 15 mg tablet 15 mg PO TID #270 tablet 07/15/20 03/29/21 Rx venlafaxine
[2021-03-29] MEDS: SODIUM CHLORIDE 0.9% IV 1,000 ML 100 ML IV CONT (16:01)
[2021-03-29 16:02] VITALS: BP 107/85; PULSE 78; RESP 27; O2SAT 98
[2021-03-29 17:19] VITALS: BMI 43.0
[2021-03-29] MEDS: INSULIN ASPART (*BKC) 100 UNITS/ML SUB-Q (18:09)
[2021-03-29 18:17] LABS: Glucose Point of Care 206 mg/dl (65-105)
[2021-03-29 22:00] VITALS: BP 134/66; PULSE 83; RESP 16; TEMP 36.3; O2SAT 97
[2021-03-29 23:11] LABS: Glucose Point of Care 184 mg/dl (65-105)
[2021-03-30] VITALS (8 sets, daily range): BP systolic 108–148; BP diastolic 58–116; PULSE 64–85; RESP 16–20; TEMP 35.8–36.3; O2SAT 96–98
[2021-03-30] MEDS: TOPIRAMATE 100 MG TABLET BY MOUTH ×2 (04:45→20:44)
[2021-03-30 05:52] LABS: Glucose Point of Care 172 mg/dl (65-105)
[2021-03-30 07:28] LABS: Basophils Percent Auto 0.4 % (0.2-1.2); Eosinophils Absolute Auto 0.3 K/mm3 (0-0.3); Eosinophils Percent Auto 3.9 % (0-4.4); Hematocrit 30.7 % (37.0-47.0); Hemoglobin 9.7 g/dL (12.0-15.0); Immature Granulocyte Absolute 0.03 K/mm3 (0.00-0.031); Immature Granulocyte Percent A 0.4 % (0-0.5); Lymphocytes Absolute Auto 4.26 K/mm3 (0.9-3.2); Lymphocytes Percent Auto 53.8 % (18.3-44.2); Mean Corpuscular HGB Conc 31.6 g/dl (32-36); Mean Corpuscular Hemoglobin 28.6 pg (26-34); Mean Corpuscular Volume 90.6 fl (80-100); Mean Platelet Volume 9.9 fl (7.4-10.4); Monocytes Absolute Auto 0.3 K/mm3 (0.1-0.6); Neutrophils Percent Auto 37.5 % (45.5-73.1); Platelet Count Result 156 k/mm3 (150-375); Red Blood Count 3.39 M/mm3 (4.2-5.4); Red Cell Distribution Width 16.9 % (11.5-14.5); White Blood Count 7.9 K/mm3 (4.5-10.0)
[2021-03-30 07:48] LABS: Alanine Aminotransferase 12 U/L (4-35); Albumin Level 3.6 g/dL (3.5-5.1); Alkaline Phosphatase 109 U/L (38-126); Anion Gap 9 mmol/L (8-16); Aspartate Amino Transferase 14 U/L (14-36); Bilirubin,Total 0.2 mg/dL (0.2-1.3); Blood Urea Nitrogen 37 mg/dL (7-17); CRP 3.6 mg/dL (<1.0); Calcium 8.9 mg/dL (8.4-10.2); Carbon Dioxide 24 mmol/L (22-30); Chloride 105 mmol/L (98-107); Estimated CRCL calculation 22 ml/min; Estimated Glomerular Filt Rate 20; Glucose 182 mg/dL (65-110); Lactate Dehydrogenase 257 U/L (313-618); Magnesium 2.1 mg/dL (1.6-2.3); Potassium 3.7 mmol/L (3.4-5.0); Sodium 138 mmol/L (137-145)
[2021-03-30 08:16] LABS: Glucose Point of Care 187 mg/dl (65-105)
[2021-03-30 08:48] LABS: Thyroid Stimulating Hormone Reflex 0.682 uIU/mL (0.465-4.68)
[2021-03-30] MEDS: MULTIVITAMINS /C LUTEIN (CENTRUM SILVER) TABLET *BKC 1 TAB PO (09:23)
[2021-03-30] MEDS: VENLAFAXINE HCL XR 75 MG CAP.ER.24H PO (09:24)
[2021-03-30] MEDS: ASPIRIN 81 MG ENTERIC TABLET PO (09:24)
[2021-03-30] MEDS: busPIRone HCL 5 MG TABLET 15 MG PO ×3 (09:24→18:04)
[2021-03-30] MEDS: FERROUS SULFATE 324 MG TABLET PO (09:24)
[2021-03-30] MEDS: allopurinoL 100 MG TABLET BY MOUTH (09:24)
[2021-03-30] MEDS: lisinopriL 20 MG TABLET PO (09:25)
[2021-03-30] MEDS: calcitrioL 0.25 MCG CAPSULE PO (09:25)
[2021-03-30] MEDS: CLOPIDOGREL BISULFATE 75 MG TABLET PO (09:25)
[2021-03-30] MEDS: CHOLECALCIFEROL 400 UNITS TABLET (VIT D) PO (09:25)
[2021-03-30] MEDS: FUROSEMIDE 40 MG TABLET BY MOUTH ×2 (09:25→18:04)
[2021-03-30] MEDS: PANTOPRAZOLE 40 MG TABLET PO ×2 (09:25→20:44)
[2021-03-30] MEDS: carvediloL 25 MG TABLET BY MOUTH ×2 (09:30→20:46)
[2021-03-30 11:15] LABS: Glucose Point of Care 223 mg/dl (65-105)
[2021-03-30] MEDS: INSULIN ASPART (*BKC) 100 UNITS/ML SUB-Q (12:42)
[2021-03-30 15:46] LABS: Glucose Point of Care 151 mg/dl (65-105)
--- NOTE | 2021-03-30 16:05 | PM.IMPN ---
Progress Note: A&P Assessment and Plan (1) Urinary tract infection: Code(s): N39.0 - Urinary tract infection, site not specified Status: Acute Assessment and Plan: Patient has been started on ceftriaxone, pending urine culture. (2) COVID-19: Code(s): U07.1 - COVID-19 Status: Acute Assessment and Plan: Patient has no oxygen requirement. Given her clinical risk factor she is at higher risk for severe disease however cannot receive remdesivir due to her renal function. She does not think that she would take it anyway as she does not believe that she has COVID. (3) Abnormal computed tomography of abdomen and pelvis: Code(s): R93.5 - Abnormal findings on diagnostic imaging of other abdominal regions, including retroperitoneum Status: Acute Assessment and Plan: CT shows mild right hydro ureteral nephrosis and urothelial thickening in the distal right ureter as well as diffuse bladder wall thickening. Findings may very well be related to inflammation due to underlying infection however radiologist cannot rule out malignancy. No obstructing kidney stones noted on that side. Back pain resolved, abdominal pain improving. Likely will repeat scan on outpatient basis after treatment of infection. (4) Generalized weakness: Code(s): R53.1 - Weakness Status: Acute Assessment and Plan: Secondary to urinary tract infection. Also positive for COVID. Initiate fall precautions. (5) Anemia of chronic disease: Code(s): D63.8 - Anemia in other chronic diseases classified elsewhere Status: Acute Assessment and Plan: Hemoglobin and hematocrit are stable on review of previous labs. (6) Essential (primary) hypertension: Code(s): I10 - Essential (primary) hypertension Status: Chronic Assessment and Plan: Blood pressures were reviewed and they are stable. Antihypertensives will be reviewed and resumed as appropriate. (7) Type 2 diabetes mellitus with diabetic polyneuropathy, without long-term current use of insulin: Code(s): E11.42 - Type 2 diabetes mellitus with diabetic polyneuropathy Status: Chronic Assessment and Plan: Hold glipizide for now due to poor appetite and chronic kidney disease stage 4. Initiate sliding scale insulin, Accu-Cheks, and hypoglycemic protocol. Initially was started on low SS insulin. Glucose this morning was 182, I increased to moderate dose SS. (8) Chronic kidney disease, stage 4 (severe): Code(s): N18.4 - Chronic kidney disease, stage 4 (severe) Status: Chronic Assessment and Plan: Creatinine and GFR are stable on review of previous labs. Subjective Date/time seen: 03/30/21 16:05 Interval history: 71-year-old female with history of stroke with right-sided deficits and dysphagia, hypertension, epf-tarpqfb-iuvzoemkz type 2 diabetes mellitus, chronic anemia, chronic kidney disease, and chronic lymphocytic leukemia, admitted for UTI and COVID. Pt states she feels much better today. She still has mild cough. No sob, she is not requiring oxygen at this time. She still as generalized weakness and mild abdominal pain but states this is improving. Review of Systems Review of Systems: General: Denies fevers, +generalized weakness Eyes: Denies vision changes ENT: Denies nasal congestion or sore throat Respiratory: + cough, denies shortness of breath Cardiovascular: Denies chest pain or lower extremity edema Gastrointestinal: + abdominal pain, denies vomiting or diarrhea Genitourinary: Denies dysuria Musculoskeletal: Denies back pain Neurological: Denies headache Integumentary: Denies rash Exam Narrative: General: No acute distress, non toxic appearing, morbidly obese Eyes: PERRL, no scleral icterus HEENT: NCAT, external ears normal, MMM Respiratory: No respiratory distress, diffuse rhonchi, no wheezing Cardiovascular: RRR,
[2021-03-30] MEDS: SIMVASTATIN 20 MG TABLET 40 MG PO (20:45)
[2021-03-30 21:23] LABS: Glucose Point of Care 205 mg/dl (65-105)
[2021-03-31] VITALS (8 sets, daily range): BP systolic 100–135; BP diastolic 58–81; PULSE 66–91; RESP 18–22; TEMP 36.3–36.9; O2SAT 95–98
[2021-03-31 07:23] LABS: Alanine Aminotransferase 14 U/L (4-35); Albumin Level 3.5 g/dL (3.5-5.1); Alkaline Phosphatase 105 U/L (38-126); Anion Gap 9 mmol/L (8-16); Aspartate Amino Transferase 23 U/L (14-36); Bilirubin,Total 0.4 mg/dL (0.2-1.3); Blood Urea Nitrogen 46 mg/dL (7-17); CRP 2.7 mg/dL (<1.0); Calcium 9.2 mg/dL (8.4-10.2); Carbon Dioxide 23 mmol/L (22-30); Chloride 104 mmol/L (98-107); Estimated CRCL calculation 21 ml/min; Estimated Glomerular Filt Rate 19; Glucose 187 mg/dL (65-110); Potassium 3.9 mmol/L (3.4-5.0); Sodium 136 mmol/L (137-145)
[2021-03-31 07:28] LABS: Glucose Point of Care 166 mg/dl (65-105)
[2021-03-31 07:42] LABS: Basophils Absolute Auto 0.1 K/mm3 (0.0-0.1); Basophils Percent Auto 0.5 % (0.2-1.2); Eosinophils Absolute Auto 0.4 K/mm3 (0-0.3); Eosinophils Percent Auto 3.5 % (0-4.4); Hematocrit 31.5 % (37.0-47.0); Hemoglobin 9.8 g/dL (12.0-15.0); Immature Granulocyte Absolute 0.04 K/mm3 (0.00-0.031); Immature Granulocyte Percent A 0.4 % (0-0.5); Lymphocytes Absolute Auto 5.25 K/mm3 (0.9-3.2); Lymphocytes Percent Auto 49.9 % (18.3-44.2); Mean Corpuscular HGB Conc 31.1 g/dl (32-36); Mean Corpuscular Hemoglobin 28.7 pg (26-34); Mean Corpuscular Volume 92.4 fl (80-100); Mean Platelet Volume 9.6 fl (7.4-10.4); Monocytes Absolute Auto 0.4 K/mm3 (0.1-0.6); Monocytes Percent Auto 3.9 % (2.6-8.5); Neutrophils Absolute Auto 4.4 K/mm3 (1.3-6.7); Neutrophils Percent Auto 41.8 % (45.5-73.1); Platelet Count Result 179 k/mm3 (150-375); Red Blood Count 3.41 M/mm3 (4.2-5.4); Red Cell Distribution Width 17.2 % (11.5-14.5); White Blood Count 10.5 K/mm3 (4.5-10.0)
[2021-03-31] MEDS: lisinopriL 20 MG TABLET PO (08:25)
[2021-03-31] MEDS: VENLAFAXINE HCL XR 75 MG CAP.ER.24H PO (08:25)
[2021-03-31] MEDS: FERROUS SULFATE 324 MG TABLET PO (08:25)
[2021-03-31] MEDS: ASPIRIN 81 MG ENTERIC TABLET PO (08:26)
[2021-03-31] MEDS: PANTOPRAZOLE 40 MG TABLET PO ×2 (08:26→20:55)
[2021-03-31] MEDS: MULTIVITAMINS /C LUTEIN (CENTRUM SILVER) TABLET *BKC 1 TAB PO (08:26)
[2021-03-31] MEDS: CLOPIDOGREL BISULFATE 75 MG TABLET PO (08:27)
[2021-03-31] MEDS: allopurinoL 100 MG TABLET BY MOUTH (08:27)
[2021-03-31] MEDS: CHOLECALCIFEROL 400 UNITS TABLET (VIT D) PO (08:27)
[2021-03-31] MEDS: carvediloL 25 MG TABLET BY MOUTH ×2 (08:27→20:52)
[2021-03-31] MEDS: FUROSEMIDE 40 MG TABLET BY MOUTH ×2 (08:27→17:02)
[2021-03-31] MEDS: busPIRone HCL 5 MG TABLET 15 MG PO ×3 (08:27→17:02)
[2021-03-31 11:42] LABS: Glucose Point of Care 268 mg/dl (65-105)
[2021-03-31] MEDS: INSULIN ASPART (*BKC) 100 UNITS/ML SUB-Q (13:08)
--- NOTE | 2021-03-31 13:43 | PM.IMPN ---
Progress Note: A&P Assessment and Plan (1) Urinary tract infection: Code(s): N39.0 - Urinary tract infection, site not specified Status: Acute Assessment and Plan: -Patient has been started on ceftriaxone #2 -Urine culture Group B strep, should be susceptible to cephalosporins - final sensitivity report not completed routinely for this organism (2) COVID-19: Code(s): U07.1 - COVID-19 Status: Acute Assessment and Plan: Patient has no oxygen requirement. Given her clinical risk factor she is at higher risk for severe disease however cannot receive remdesivir due to her renal function. She does not think that she would take it anyway as she does not believe that she has COVID. (3) Abnormal computed tomography of abdomen and pelvis: Code(s): R93.5 - Abnormal findings on diagnostic imaging of other abdominal regions, including retroperitoneum Status: Acute Assessment and Plan: CT shows mild right hydro ureteral nephrosis and urothelial thickening in the distal right ureter as well as diffuse bladder wall thickening. Findings may very well be related to inflammation due to underlying infection however radiologist cannot rule out malignancy. No obstructing kidney stones noted on that side. Back pain resolved, abdominal pain resolved. Likely will repeat scan on outpatient basis after treatment of infection. (4) Generalized weakness: Code(s): R53.1 - Weakness Status: Acute Assessment and Plan: Secondary to urinary tract infection. Also positive for COVID. Initiate fall precautions. PT/OT. (5) Anemia of chronic disease: Code(s): D63.8 - Anemia in other chronic diseases classified elsewhere Status: Acute Assessment and Plan: Hemoglobin and hematocrit are stable on review of previous labs. (6) Essential (primary) hypertension: Code(s): I10 - Essential (primary) hypertension Status: Chronic Assessment and Plan: Blood pressures were reviewed and they are stable. Antihypertensives will be reviewed and resumed as appropriate. (7) Type 2 diabetes mellitus with diabetic polyneuropathy, without long-term current use of insulin: Code(s): E11.42 - Type 2 diabetes mellitus with diabetic polyneuropathy Status: Chronic Assessment and Plan: -A1c January 2021 was 6.9 -Hold glipizide for now due to poor appetite and chronic kidney disease stage 4. -Initiate sliding scale insulin, Accu-Cheks, and hypoglycemic protocol. -Initially was started on low SS insulin but was increased to moderate dose SS due to persistent hyperglycemia. -Still running high so will add 10 units of lantus tonight -continue monitoring closely (8) Chronic kidney disease, stage 4 (severe): Code(s): N18.4 - Chronic kidney disease, stage 4 (severe) Status: Chronic Assessment and Plan: Creatinine and GFR are stable on review of previous labs. Subjective Date/time seen: 03/31/21 13:43 Interval history: 71-year-old female with history of stroke with right-sided deficits and dysphagia, hypertension, lks-mqehquj-fbxbbsdnn type 2 diabetes mellitus, chronic anemia, chronic kidney disease, and chronic lymphocytic leukemia, admitted for UTI and COVID. Pt states she feels much better today. She still has mild cough. No sob, she is not requiring oxygen at this time. She still has generalized weakness. Abd pain and back pain have resolved. Admits she was lightheaded this morning but this is a chronic issue she has had for a long time. She also notes urinary frequency, no dysuria. Review of Systems Review of Systems: General: Denies fevers, +generalized weakness Eyes: Denies vision changes ENT: Denies nasal congestion or sore throat Respiratory: + cough, denies shortness of breath Cardiovascular: Denies chest pain or lower extremity edema Gastrointestinal: denies abdominal pain, denies vomiti
[2021-03-31 15:56] LABS: Glucose Point of Care 173 mg/dl (65-105)
[2021-03-31] MEDS: INSULIN GLARGINE (*BKC) 100 UNITS/ML 10 UNITS SUB-Q (20:50)
[2021-03-31] MEDS: TOPIRAMATE 100 MG TABLET BY MOUTH (20:55)
[2021-03-31] MEDS: SIMVASTATIN 20 MG TABLET 40 MG PO (20:55)
[2021-03-31 20:59] LABS: Glucose Point of Care 201 mg/dl (65-105)
[2021-04-01] VITALS (7 sets, daily range): BP systolic 112–148; BP diastolic 55–68; PULSE 74–84; RESP 16–20; TEMP 36.3–36.9; O2SAT 93–99
[2021-04-01 07:18] LABS: Basophils Percent Auto 0.4 % (0.2-1.2); Eosinophils Absolute Auto 0.4 K/mm3 (0-0.3); Eosinophils Percent Auto 3.8 % (0-4.4); Hematocrit 31.8 % (37.0-47.0); Hemoglobin 10.2 g/dL (12.0-15.0); Immature Granulocyte Absolute 0.04 K/mm3 (0.00-0.031); Immature Granulocyte Percent A 0.4 % (0-0.5); Lymphocytes Absolute Auto 5.77 K/mm3 (0.9-3.2); Lymphocytes Percent Auto 51.5 % (18.3-44.2); Mean Corpuscular HGB Conc 32.1 g/dl (32-36); Mean Corpuscular Hemoglobin 29.1 pg (26-34); Mean Corpuscular Volume 90.6 fl (80-100); Mean Platelet Volume 9.8 fl (7.4-10.4); Monocytes Absolute Auto 0.4 K/mm3 (0.1-0.6); Monocytes Percent Auto 3.8 % (2.6-8.5); Neutrophils Absolute Auto 4.5 K/mm3 (1.3-6.7); Neutrophils Percent Auto 40.1 % (45.5-73.1); Platelet Count Result 181 k/mm3 (150-375); Red Blood Count 3.51 M/mm3 (4.2-5.4); Red Cell Distribution Width 17.3 % (11.5-14.5); White Blood Count 11.2 K/mm3 (4.5-10.0)
[2021-04-01 07:49] LABS: Alanine Aminotransferase 14 U/L (4-35); Albumin Level 3.7 g/dL (3.5-5.1); Alkaline Phosphatase 106 U/L (38-126); Anion Gap 10 mmol/L (8-16); Aspartate Amino Transferase 17 U/L (14-36); Bilirubin,Total 0.3 mg/dL (0.2-1.3); Blood Urea Nitrogen 46 mg/dL (7-17); CRP 2.7 mg/dL (<1.0); Calcium 8.9 mg/dL (8.4-10.2); Carbon Dioxide 24 mmol/L (22-30); Chloride 102 mmol/L (98-107); Estimated CRCL calculation 31 ml/min; Estimated Glomerular Filt Rate 16; Glucose 186 mg/dL (65-110); Potassium 3.5 mmol/L (3.4-5.0); Sodium 136 mmol/L (137-145)
[2021-04-01 08:10] LABS: Glucose Point of Care 176 mg/dl (65-105)
[2021-04-01] MEDS: busPIRone HCL 5 MG TABLET 15 MG PO ×3 (08:53→17:24)
[2021-04-01] MEDS: ASPIRIN 81 MG ENTERIC TABLET PO (08:53)
[2021-04-01] MEDS: calcitrioL 0.25 MCG CAPSULE PO (08:54)
[2021-04-01] MEDS: CLOPIDOGREL BISULFATE 75 MG TABLET PO (08:54)
[2021-04-01] MEDS: PANTOPRAZOLE 40 MG TABLET PO ×2 (08:54→20:19)
[2021-04-01] MEDS: VENLAFAXINE HCL XR 75 MG CAP.ER.24H PO (08:54)
[2021-04-01] MEDS: FERROUS SULFATE 324 MG TABLET PO (08:54)
[2021-04-01] MEDS: CHOLECALCIFEROL 400 UNITS TABLET (VIT D) PO (08:54)
[2021-04-01] MEDS: carvediloL 25 MG TABLET BY MOUTH ×2 (08:54→20:18)
[2021-04-01] MEDS: MULTIVITAMINS /C LUTEIN (CENTRUM SILVER) TABLET *BKC 1 TAB PO (08:54)
[2021-04-01] MEDS: FUROSEMIDE 40 MG TABLET BY MOUTH ×2 (08:54→17:24)
[2021-04-01] MEDS: lisinopriL 20 MG TABLET PO (08:54)
[2021-04-01] MEDS: allopurinoL 100 MG TABLET BY MOUTH (08:54)
[2021-04-01 12:18] LABS: Glucose Point of Care 211 mg/dl (65-105)
[2021-04-01] MEDS: INSULIN ASPART (*BKC) 100 UNITS/ML SUB-Q (13:10)
--- NOTE | 2021-04-01 13:51 | PM.IMPN ---
Progress Note: A&P Assessment and Plan (1) Urinary tract infection: Code(s): N39.0 - Urinary tract infection, site not specified Status: Acute Assessment and Plan: -Patient has been started on ceftriaxone #3 -Urine culture Group B strep, should be susceptible to cephalosporins - final sensitivity report not completed routinely for this organism (2) COVID-19: Code(s): U07.1 - COVID-19 Status: Acute Assessment and Plan: -Patient has no oxygen requirement currently. -Given her clinical risk factor she is at higher risk for severe disease however cannot receive remdesivir due to her renal function. -still no oxygen requirement but cough seems to have worsened and lung sounds are more coarse today -continue supportive care measures -check ABG (3) Abnormal computed tomography of abdomen and pelvis: Code(s): R93.5 - Abnormal findings on diagnostic imaging of other abdominal regions, including retroperitoneum Status: Acute Assessment and Plan: CT shows mild right hydro ureteral nephrosis and urothelial thickening in the distal right ureter as well as diffuse bladder wall thickening. Findings may very well be related to inflammation due to underlying infection however radiologist cannot rule out malignancy. No obstructing kidney stones noted on that side. Back pain resolved, abdominal pain resolved. Likely will repeat scan on outpatient basis after treatment of infection. (4) Generalized weakness: Code(s): R53.1 - Weakness Status: Acute Assessment and Plan: Secondary to urinary tract infection. Also positive for COVID. Initiate fall precautions. PT/OT. (5) Anemia of chronic disease: Code(s): D63.8 - Anemia in other chronic diseases classified elsewhere Status: Acute Assessment and Plan: Hemoglobin and hematocrit are stable on review of previous labs. (6) Essential (primary) hypertension: Code(s): I10 - Essential (primary) hypertension Status: Chronic Assessment and Plan: Blood pressures were reviewed and they are stable. Antihypertensives will be reviewed and resumed as appropriate. (7) Type 2 diabetes mellitus with diabetic polyneuropathy, without long-term current use of insulin: Code(s): E11.42 - Type 2 diabetes mellitus with diabetic polyneuropathy Status: Chronic Assessment and Plan: -A1c January 2021 was 6.9 -Hold glipizide for now due to poor appetite and chronic kidney disease stage 4. -Initiate sliding scale insulin, Accu-Cheks, and hypoglycemic protocol. -Initially was started on low SS insulin but was increased to moderate dose SS due to persistent hyperglycemia. -Adding 10 units of Lantus yesterday but glood glucose 186 this AM -Still running high so will increase to 15 units of lantus tonight -continue monitoring closely (8) Chronic kidney disease, stage 4 (severe): Code(s): N18.4 - Chronic kidney disease, stage 4 (severe) Status: Chronic Assessment and Plan: Creatinine and GFR are stable on review of previous labs. Subjective Date/time seen: 04/01/21 13:51 Interval history: 71-year-old female with history of stroke with right-sided deficits and dysphagia, hypertension, xbr-mcgcolr-zhepqawnm type 2 diabetes mellitus, chronic anemia, chronic kidney disease, and chronic lymphocytic leukemia, admitted for UTI and COVID. Pt states she feels better but it was noted on exam that her cough has worsened. She denies cp or sob. States her weakness is improving. Back pain and abdominal pain have resolved. She was up to the chair today. Review of Systems Review of Systems: General: Denies fevers, +generalized weakness Eyes: Denies vision changes ENT: Denies nasal congestion or sore throat Respiratory: + cough, denies shortness of breath Cardiovascular: Denies chest pain or lower extremity edema Gastrointestinal: denies abdomi
[2021-04-01 17:30] LABS: Glucose Point of Care 195 mg/dl (65-105)
[2021-04-01] MEDS: SIMVASTATIN 20 MG TABLET 40 MG PO (20:19)
[2021-04-01] MEDS: TOPIRAMATE 100 MG TABLET BY MOUTH (20:19)
[2021-04-02] VITALS (7 sets, daily range): BP systolic 121–129; BP diastolic 60–73; PULSE 69–88; RESP 18–24; TEMP 36.8–38.7; O2SAT 96–100
[2021-04-02 07:18] LABS: Basophils Percent Auto 0.4 % (0.2-1.2); Eosinophils Absolute Auto 0.3 K/mm3 (0-0.3); Eosinophils Percent Auto 2.9 % (0-4.4); Hematocrit 31.2 % (37.0-47.0); Hemoglobin 10.2 g/dL (12.0-15.0); Immature Granulocyte Absolute 0.03 K/mm3 (0.00-0.031); Immature Granulocyte Percent A 0.3 % (0-0.5); Lymphocytes Percent Auto 50.6 % (18.3-44.2); Mean Corpuscular HGB Conc 32.7 g/dl (32-36); Mean Corpuscular Hemoglobin 29.4 pg (26-34); Mean Corpuscular Volume 89.9 fl (80-100); Mean Platelet Volume 10.3 fl (7.4-10.4); Monocytes Absolute Auto 0.4 K/mm3 (0.1-0.6); Monocytes Percent Auto 3.8 % (2.6-8.5); Neutrophils Absolute Auto 4.7 K/mm3 (1.3-6.7); Platelet Count Result 183 k/mm3 (150-375); Red Blood Count 3.47 M/mm3 (4.2-5.4); Red Cell Distribution Width 17.2 % (11.5-14.5); White Blood Count 11.1 K/mm3 (4.5-10.0)
[2021-04-02 07:33] LABS: Alanine Aminotransferase 13 U/L (4-35); Albumin Level 3.8 g/dL (3.5-5.1); Alkaline Phosphatase 104 U/L (38-126); Anion Gap 12 mmol/L (8-16); Aspartate Amino Transferase 15 U/L (14-36); Bilirubin,Total 0.4 mg/dL (0.2-1.3); Blood Urea Nitrogen 50 mg/dL (7-17); CRP 4.6 mg/dL (<1.0); Carbon Dioxide 23 mmol/L (22-30); Chloride 99 mmol/L (98-107); Estimated CRCL calculation 31 ml/min; Estimated Glomerular Filt Rate 16; Glucose 184 mg/dL (65-110); Potassium 3.4 mmol/L (3.4-5.0); Sodium 134 mmol/L (137-145)
[2021-04-02] MEDS: ALBUTEROL SULFATE (*SP) INHALER 2 PUFF INHALATION ×4 (08:38→21:50)
[2021-04-02 08:58] LABS: Glucose Point of Care 165 mg/dl (65-105)
[2021-04-02] MEDS: VENLAFAXINE HCL XR 75 MG CAP.ER.24H PO (09:07)
[2021-04-02] MEDS: carvediloL 25 MG TABLET BY MOUTH ×2 (09:07→20:19)
[2021-04-02] MEDS: busPIRone HCL 5 MG TABLET 15 MG PO ×3 (09:07→16:37)
[2021-04-02] MEDS: ASPIRIN 81 MG ENTERIC TABLET PO (09:07)
[2021-04-02] MEDS: CLOPIDOGREL BISULFATE 75 MG TABLET PO (09:07)
[2021-04-02] MEDS: FERROUS SULFATE 324 MG TABLET PO (09:07)
[2021-04-02] MEDS: PANTOPRAZOLE 40 MG TABLET PO ×2 (09:07→20:19)
[2021-04-02] MEDS: CHOLECALCIFEROL 400 UNITS TABLET (VIT D) PO (09:07)
[2021-04-02] MEDS: FUROSEMIDE 40 MG TABLET BY MOUTH ×2 (09:07→16:35)
[2021-04-02] MEDS: allopurinoL 100 MG TABLET BY MOUTH (09:07)
[2021-04-02] MEDS: MULTIVITAMINS /C LUTEIN (CENTRUM SILVER) TABLET *BKC 1 TAB PO (09:08)
[2021-04-02] MEDS: lisinopriL 20 MG TABLET PO (09:08)
[2021-04-02 12:44] LABS: Glucose Point of Care 192 mg/dl (65-105)
--- NOTE | 2021-04-02 12:48 | PM.IMPN ---
Progress Note: A&P Assessment and Plan (1) Urinary tract infection: Code(s): N39.0 - Urinary tract infection, site not specified Status: Acute Assessment and Plan: -Patient has been started on ceftriaxone #4 -Urine culture Group B strep, should be susceptible to cephalosporins - final sensitivity report not completed routinely for this organism (2) COVID-19: Code(s): U07.1 - COVID-19 Status: Acute Assessment and Plan: -Patient has no oxygen requirement currently. -Given her clinical risk factor she is at higher risk for severe disease however cannot receive remdesivir due to her renal function. -still no oxygen requirement but cough seems to have worsened and lung sounds are also worse -continue supportive care measures -check ABG (3) Abnormal computed tomography of abdomen and pelvis: Code(s): R93.5 - Abnormal findings on diagnostic imaging of other abdominal regions, including retroperitoneum Status: Acute Assessment and Plan: CT shows mild right hydro ureteral nephrosis and urothelial thickening in the distal right ureter as well as diffuse bladder wall thickening. Findings may very well be related to inflammation due to underlying infection however radiologist cannot rule out malignancy. No obstructing kidney stones noted on that side. Back pain resolved, abdominal pain resolved. Likely will repeat scan on outpatient basis after treatment of infection. (4) Generalized weakness: Code(s): R53.1 - Weakness Status: Acute Assessment and Plan: Secondary to urinary tract infection. Also positive for COVID. Initiate fall precautions. PT/OT. Concern about sending her home because she is bedbound/wheelchair bound secondary to prior stroke. and daughter both help care for her and transfer her. With her being covid positive, she is unable to care for herself and while in this isolation period I have concerns about exposing her other family members. (5) Anemia of chronic disease: Code(s): D63.8 - Anemia in other chronic diseases classified elsewhere Status: Acute Assessment and Plan: Hemoglobin and hematocrit are stable on review of previous labs. (6) Essential (primary) hypertension: Code(s): I10 - Essential (primary) hypertension Status: Chronic Assessment and Plan: Blood pressures were reviewed and they are stable. Antihypertensives will be reviewed and resumed as appropriate. (7) Type 2 diabetes mellitus with diabetic polyneuropathy, without long-term current use of insulin: Code(s): E11.42 - Type 2 diabetes mellitus with diabetic polyneuropathy Status: Chronic Assessment and Plan: -A1c January 2021 was 6.9 -Hold glipizide for now due to poor appetite and chronic kidney disease stage 4. -Initiate sliding scale insulin, Accu-Cheks, and hypoglycemic protocol. -Initially was started on low SS insulin but was increased to moderate dose SS due to persistent hyperglycemia. -Added 15 units of Lantus yesterday but blood glucose 184 this AM. -Still running high so will increase to high dose sliding scale -continue monitoring closely (8) Chronic kidney disease, stage 4 (severe): Code(s): N18.4 - Chronic kidney disease, stage 4 (severe) Status: Chronic Assessment and Plan: Creatinine and GFR are stable on review of previous labs. Subjective Date/time seen: 04/02/21 12:48 Interval history: 71-year-old female with history of stroke with right-sided deficits and dysphagia, hypertension, rlg-hxpiruf-pkbfvpiar type 2 diabetes mellitus, chronic anemia, chronic kidney disease, and chronic lymphocytic leukemia, admitted for UTI and COVID. Pt states she feels better overall but does admit that her cough is worse. She still denies cp or sob. States her weakness is improving. Back pain and abdominal pain have resolved. Review of Syste
[2021-04-02] MEDS: ACETAMINOPHEN 325 MG TABLET 650 MG PO (16:35)
[2021-04-02 17:08] LABS: Glucose Point of Care 196 mg/dl (65-105)
--- NOTE | 2021-04-02 17:27 | PC.NURSE ---
Cxr ordered r/t sob/wheezing this shift, cxr resulted reported to [facility] provider, MARCOO.
--- NOTE | 2021-04-02 17:28 | PC.NURSE ---
100.2 fever this shift reported to Viola Mike, Tylenol 650 mg po prn q4hrs ordered and BC ordered per Viola Mike.
[2021-04-02] MEDS: SIMVASTATIN 20 MG TABLET 40 MG PO (20:19)
[2021-04-02] MEDS: TOPIRAMATE 100 MG TABLET BY MOUTH (20:19)
[2021-04-02 22:01] LABS: Glucose Point of Care 188 mg/dl (65-105)
[2021-04-03] VITALS (9 sets, daily range): BP systolic 100–140; BP diastolic 55–86; PULSE 70–82; RESP 18–20; TEMP 36.9–37.2; O2SAT 93–97
[2021-04-03 06:44] LABS: Basophils Percent Auto 0.4 % (0.2-1.2); Eosinophils Absolute Auto 0.2 K/mm3 (0-0.3); Eosinophils Percent Auto 2.5 % (0-4.4); Hematocrit 30.1 % (37.0-47.0); Hemoglobin 9.7 g/dL (12.0-15.0); Immature Granulocyte Absolute 0.04 K/mm3 (0.00-0.031); Immature Granulocyte Percent A 0.4 % (0-0.5); Lymphocytes Absolute Auto 3.93 K/mm3 (0.9-3.2); Lymphocytes Percent Auto 40.9 % (18.3-44.2); Mean Corpuscular HGB Conc 32.2 g/dl (32-36); Mean Corpuscular Hemoglobin 28.9 pg (26-34); Mean Corpuscular Volume 89.6 fl (80-100); Mean Platelet Volume 9.9 fl (7.4-10.4); Monocytes Absolute Auto 0.4 K/mm3 (0.1-0.6); Monocytes Percent Auto 4.3 % (2.6-8.5); Neutrophils Percent Auto 51.5 % (45.5-73.1); Platelet Count Result 157 k/mm3 (150-375); Red Blood Count 3.36 M/mm3 (4.2-5.4); White Blood Count 9.6 K/mm3 (4.5-10.0)
[2021-04-03 07:05] LABS: Alanine Aminotransferase 14 U/L (4-35); Albumin Level 3.6 g/dL (3.5-5.1); Alkaline Phosphatase 98 U/L (38-126); Anion Gap 10 mmol/L (8-16); Aspartate Amino Transferase 21 U/L (14-36); Bilirubin,Total 0.3 mg/dL (0.2-1.3); Blood Urea Nitrogen 52 mg/dL (7-17); Calcium 8.8 mg/dL (8.4-10.2); Carbon Dioxide 24 mmol/L (22-30); Chloride 99 mmol/L (98-107); Estimated CRCL calculation 18 ml/min; Estimated Glomerular Filt Rate 16; Glucose 178 mg/dL (65-110); Potassium 3.4 mmol/L (3.4-5.0); Sodium 133 mmol/L (137-145)
[2021-04-03 08:15] LABS: Glucose Point of Care 179 mg/dl (65-105)
[2021-04-03] MEDS: VENLAFAXINE HCL XR 75 MG CAP.ER.24H PO (08:21)
[2021-04-03] MEDS: FUROSEMIDE 40 MG TABLET BY MOUTH ×2 (08:21→16:16)
[2021-04-03] MEDS: ASPIRIN 81 MG ENTERIC TABLET PO (08:21)
[2021-04-03] MEDS: CHOLECALCIFEROL 400 UNITS TABLET (VIT D) PO (08:21)
[2021-04-03] MEDS: CLOPIDOGREL BISULFATE 75 MG TABLET PO (08:21)
[2021-04-03] MEDS: allopurinoL 100 MG TABLET BY MOUTH (08:21)
[2021-04-03] MEDS: FERROUS SULFATE 324 MG TABLET PO (08:21)
[2021-04-03] MEDS: busPIRone HCL 5 MG TABLET 15 MG PO ×3 (08:21→16:16)
[2021-04-03] MEDS: lisinopriL 20 MG TABLET PO (08:22)
[2021-04-03] MEDS: MULTIVITAMINS /C LUTEIN (CENTRUM SILVER) TABLET *BKC 1 TAB PO (08:22)
[2021-04-03] MEDS: carvediloL 25 MG TABLET BY MOUTH ×2 (08:22→20:22)
[2021-04-03] MEDS: PANTOPRAZOLE 40 MG TABLET PO ×2 (08:22→20:22)
[2021-04-03 09:21] LABS: Hemoglobin A1C 8.2 % (<5.7)
[2021-04-03] MEDS: ALBUTEROL SULFATE (*SP) INHALER 2 PUFF INHALATION ×4 (09:31→20:50)
[2021-04-03 12:03] LABS: Glucose Point of Care 248 mg/dl (65-105)
[2021-04-03] MEDS: INSULIN ASPART (*BKC) 100 UNITS/ML SUB-Q ×2 (12:10→16:35)
--- NOTE | 2021-04-03 14:07 | PM.IMPN ---
Progress Note: A&P Assessment and Plan (1) Urinary tract infection: Code(s): N39.0 - Urinary tract infection, site not specified Status: Acute Assessment and Plan: -Patient has been started on ceftriaxone #5 -Urine culture Group B strep, should be susceptible to cephalosporins - final sensitivity report not completed routinely for this organism -spiked a fever last night so blood cultures were drawn, could also be due to covid infection -unable to get a sensitivity report as it has been longer than 72 hours -will repeat UA although do not suspect this to be particularly useful as she has already been on abx for 5 days (2) COVID-19: Code(s): U07.1 - COVID-19 Status: Acute Assessment and Plan: -Patient has no oxygen requirement currently. -Given her clinical risk factor she is at higher risk for severe disease however cannot receive remdesivir due to her renal function. -still no oxygen requirement but cough seems to have worsened and lung sounds are also worse -continue supportive care measures -check ABG -did spike a fever to 101.6 overnight, secondary to covid or UTI?? -consider baricitinib and decadron if she develops oxygen requirement (3) Abnormal computed tomography of abdomen and pelvis: Code(s): R93.5 - Abnormal findings on diagnostic imaging of other abdominal regions, including retroperitoneum Status: Acute Assessment and Plan: CT shows mild right hydro ureteral nephrosis and urothelial thickening in the distal right ureter as well as diffuse bladder wall thickening. Findings may very well be related to inflammation due to underlying infection however radiologist cannot rule out malignancy. No obstructing kidney stones noted on that side. Back pain resolved, abdominal pain resolved. Likely will repeat scan on outpatient basis after treatment of infection. (4) Generalized weakness: Code(s): R53.1 - Weakness Status: Acute Assessment and Plan: Secondary to urinary tract infection. Also positive for COVID. Initiate fall precautions. PT/OT. Concern about sending her home because she is bedbound/wheelchair bound secondary to prior stroke. and daughter both help care for her and transfer her. With her being covid positive, she is unable to care for herself and while in this isolation period I have concerns about exposing her other family members. (5) Anemia of chronic disease: Code(s): D63.8 - Anemia in other chronic diseases classified elsewhere Status: Acute Assessment and Plan: Hemoglobin and hematocrit are stable on review of previous labs. (6) Essential (primary) hypertension: Code(s): I10 - Essential (primary) hypertension Status: Chronic Assessment and Plan: Blood pressures were reviewed and they are stable. Antihypertensives will be reviewed and resumed as appropriate. (7) Type 2 diabetes mellitus with diabetic polyneuropathy, without long-term current use of insulin: Code(s): E11.42 - Type 2 diabetes mellitus with diabetic polyneuropathy Status: Chronic Assessment and Plan: -A1c January 2021 was 6.9 -Hold glipizide for now due to poor appetite and chronic kidney disease stage 4. -Initiate sliding scale insulin, Accu-Cheks, and hypoglycemic protocol. -Initially was started on low SS insulin but was increased to high dose SS due to persistent hyperglycemia. -Added 15 units of Lantus, blood glucose this AM 178 -continue monitoring closely (8) Chronic kidney disease, stage 4 (severe): Code(s): N18.4 - Chronic kidney disease, stage 4 (severe) Status: Chronic Assessment and Plan: Creatinine and GFR are stable on review of previous labs. Subjective Date/time seen: 04/03/21 14:07 Interval history: 71-year-old female with history of stroke with right-sided deficits and dysphagia, hypertension, [id number]
[2021-04-03 16:38] LABS: Glucose Point of Care 221 mg/dl (65-105)
[2021-04-03 18:13] LABS: Add Urine Microscopic? YES; Appearance Urine Cloudy (Clear); Bacteria Urine Trace /hpf; Bilirubin Urine Negative (Negative); Blood Urine 1+ (Negative); Color Urine Yellow (Yellow); Glucose Urine UA Negative (Negative); Ketones Urine Negative (Negative); Leukocyte Esterase Ur 3+ LEU/UL (Negative); Mucus Urine Rare /lpf; Nitrate Urine Negative (Negative); Protein Urine 1+ mg/dL (Negative); RBC Urine 21-50 /hpf (0-2); Specific Grav Ur 1.012 (1.001-1.035); Squamous Epithelial Cell Urine Many /hpf (Few); Transitional Epi Cells Urine Rare /hpf (None Seen); Urobilinogen Urine Negative mg/dL (<2.0); WBC Clumps Urine Present /HPF; WBC Urine >75 /hpf
[2021-04-03] MEDS: TOPIRAMATE 100 MG TABLET BY MOUTH (20:22)
[2021-04-03] MEDS: SIMVASTATIN 20 MG TABLET 40 MG PO (20:22)
[2021-04-04] VITALS (11 sets, daily range): BP systolic 90–137; BP diastolic 59–73; PULSE 70–78; RESP 16–24; TEMP 36.4–37.3; O2SAT 93–96
[2021-04-04 06:56] LABS: Basophils Percent Auto 0.2 % (0.2-1.2); Eosinophils Absolute Auto 0.2 K/mm3 (0-0.3); Hemoglobin 9.3 g/dL (12.0-15.0); Immature Granulocyte Absolute 0.03 K/mm3 (0.00-0.031); Immature Granulocyte Percent A 0.4 % (0-0.5); Lymphocytes Absolute Auto 3.36 K/mm3 (0.9-3.2); Lymphocytes Percent Auto 39.9 % (18.3-44.2); Mean Corpuscular HGB Conc 32.1 g/dl (32-36); Mean Corpuscular Hemoglobin 29.6 pg (26-34); Mean Corpuscular Volume 92.4 fl (80-100); Mean Platelet Volume 10.3 fl (7.4-10.4); Monocytes Absolute Auto 0.4 K/mm3 (0.1-0.6); Neutrophils Absolute Auto 4.4 K/mm3 (1.3-6.7); Neutrophils Percent Auto 52.5 % (45.5-73.1); Platelet Count Result 146 k/mm3 (150-375); Red Blood Count 3.14 M/mm3 (4.2-5.4); White Blood Count 8.4 K/mm3 (4.5-10.0)
[2021-04-04 07:51] LABS: Alanine Aminotransferase 20 U/L (4-35); Albumin Level 3.6 g/dL (3.5-5.1); Alkaline Phosphatase 95 U/L (38-126); Anion Gap 11 mmol/L (8-16); Aspartate Amino Transferase 30 U/L (14-36); Bilirubin,Total 0.5 mg/dL (0.2-1.3); Blood Urea Nitrogen 54 mg/dL (7-17); CRP 13.6 mg/dL (<1.0); Calcium 8.6 mg/dL (8.4-10.2); Carbon Dioxide 24 mmol/L (22-30); Chloride 97 mmol/L (98-107); Estimated CRCL calculation 19 ml/min; Estimated Glomerular Filt Rate 17; Glucose 162 mg/dL (65-110); Potassium 3.1 mmol/L (3.4-5.0); Sodium 132 mmol/L (137-145)
[2021-04-04 08:05] LABS: Glucose Point of Care 175 mg/dl (65-105)
[2021-04-04] MEDS: FUROSEMIDE 40 MG TABLET BY MOUTH ×2 (09:20→17:10)
[2021-04-04] MEDS: POTASSIUM CHLORIDE 20 MEQ TABLET 40 MEQ PO (09:20)
[2021-04-04] MEDS: FERROUS SULFATE 324 MG TABLET PO (09:21)
[2021-04-04] MEDS: lisinopriL 20 MG TABLET PO (09:21)
[2021-04-04] MEDS: VENLAFAXINE HCL XR 75 MG CAP.ER.24H PO (09:21)
[2021-04-04] MEDS: CHOLECALCIFEROL 400 UNITS TABLET (VIT D) PO (09:21)
[2021-04-04] MEDS: calcitrioL 0.25 MCG CAPSULE PO (09:21)
[2021-04-04] MEDS: ASPIRIN 81 MG ENTERIC TABLET PO (09:21)
[2021-04-04] MEDS: busPIRone HCL 5 MG TABLET 15 MG PO ×3 (09:21→17:10)
[2021-04-04] MEDS: allopurinoL 100 MG TABLET BY MOUTH (09:21)
[2021-04-04] MEDS: CLOPIDOGREL BISULFATE 75 MG TABLET PO (09:21)
[2021-04-04] MEDS: carvediloL 25 MG TABLET BY MOUTH ×2 (09:21→20:20)
[2021-04-04] MEDS: MULTIVITAMINS /C LUTEIN (CENTRUM SILVER) TABLET *BKC 1 TAB PO (09:21)
[2021-04-04] MEDS: PANTOPRAZOLE 40 MG TABLET PO ×2 (09:21→20:20)
[2021-04-04] MEDS: ALBUTEROL SULFATE (*SP) INHALER 2 PUFF INHALATION ×4 (10:01→21:49)
[2021-04-04 11:41] LABS: Glucose Point of Care 236 mg/dl (65-105)
[2021-04-04] MEDS: INSULIN ASPART (*BKC) 100 UNITS/ML SUB-Q (11:51)
[2021-04-04 12:58] LABS: Alveolar/Arterial O2 Gradient 53.6 mmHg; Base Excess ABG -0.3 mEq/l (+/-2.0); Fractional Inspired Oxygen 21 %; HCO3 ABG 22.5 mEq/l (22.0-26.0); Oxygen Content ABG 13.7 %vol (16.0-22.0); Oxygen Saturation ABG 92.9 % (95.0-100.0); PCO2 ABG 30.5 mmHg (35.0-45.0); PO2 ABG 59.6 mmHg (80.0-100.0); PO2 FiO2 Ratio Arterial Blood 2.84 %; Total Hemoglobin 10.7 g/dL (12.0-18.0); pH ABG 7.485 (7.350-7.450)
[2021-04-04 12:59] LABS: Device ROOM AIR; Modified Allen's Test Pass; Site Drawn LEFT RADIAL
[2021-04-04 16:38] LABS: Glucose Point of Care 154 mg/dl (65-105)
--- NOTE | 2021-04-04 17:23 | PM.IMPN ---
Progress Note: A&P Assessment and Plan (1) Urinary tract infection: Code(s): N39.0 - Urinary tract infection, site not specified Status: Acute Assessment and Plan: -Patient has been started on ceftriaxone #6 -Urine culture Group B strep, should be susceptible to cephalosporins - final sensitivity report not completed routinely for this organism -spiked a fever overnight 04/02 so blood cultures were drawn, could also be due to covid infection -unable to get a sensitivity report as it has been longer than 72 hours -repeat UA still positive for UTI, culture pending, although do not exoect this to be particularly useful as she has already been on abx for 6 days (2) COVID-19: Code(s): U07.1 - COVID-19 Status: Acute Assessment and Plan: -Patient has no oxygen requirement currently. -Given her clinical risk factor she is at higher risk for severe disease however cannot receive remdesivir due to her renal function. -still no oxygen requirement but cough seems to have worsened and lung sounds are also worse -continue supportive care measures -check ABG -did spike a fever to 101.6, secondary to covid or UTI?? -consider baricitinib and decadron if she develops oxygen requirement (3) Abnormal computed tomography of abdomen and pelvis: Code(s): R93.5 - Abnormal findings on diagnostic imaging of other abdominal regions, including retroperitoneum Status: Acute Assessment and Plan: CT shows mild right hydro ureteral nephrosis and urothelial thickening in the distal right ureter as well as diffuse bladder wall thickening. Findings may very well be related to inflammation due to underlying infection however radiologist cannot rule out malignancy. No obstructing kidney stones noted on that side. Back pain resolved, abdominal pain resolved. Likely will repeat scan on outpatient basis after treatment of infection. (4) Generalized weakness: Code(s): R53.1 - Weakness Status: Acute Assessment and Plan: Secondary to urinary tract infection. Also positive for COVID. Initiate fall precautions. PT/OT. Concern about sending her home because she is bedbound/wheelchair bound secondary to prior stroke. and daughter both help care for her and transfer her. With her being covid positive, she is unable to care for herself and while in this isolation period I have concerns about exposing her other family members. (5) Anemia of chronic disease: Code(s): D63.8 - Anemia in other chronic diseases classified elsewhere Status: Acute Assessment and Plan: Hemoglobin and hematocrit are stable on review of previous labs. (6) Essential (primary) hypertension: Code(s): I10 - Essential (primary) hypertension Status: Chronic Assessment and Plan: Blood pressures were reviewed and they are stable. Antihypertensives will be reviewed and resumed as appropriate. (7) Type 2 diabetes mellitus with diabetic polyneuropathy, without long-term current use of insulin: Code(s): E11.42 - Type 2 diabetes mellitus with diabetic polyneuropathy Status: Chronic Assessment and Plan: -A1c January 2021 was 6.9 -Hold glipizide for now due to poor appetite and chronic kidney disease stage 4. -Initiate sliding scale insulin, Accu-Cheks, and hypoglycemic protocol. -Initially was started on low SS insulin but was increased to high dose SS due to persistent hyperglycemia. -Added 15 units of Lantus -continue monitoring closely (8) Chronic kidney disease, stage 4 (severe): Code(s): N18.4 - Chronic kidney disease, stage 4 (severe) Status: Chronic Assessment and Plan: Creatinine and GFR are stable on review of previous labs. Subjective Date/time seen: 04/04/21 17:23 Interval history: 71-year-old female with history of stroke with right-sided deficits and dysphagia, hypertension, [id number]
[2021-04-04] MEDS: methylPREDNISolone SOD SUCC 125 MG VIAL IV PUSH (18:36)
[2021-04-04] MEDS: INSULIN GLARGINE (*BKC) 100 UNITS/ML 15 UNITS SUB-Q (20:17)
[2021-04-04] MEDS: TOPIRAMATE 100 MG TABLET BY MOUTH (20:20)
[2021-04-04] MEDS: SIMVASTATIN 20 MG TABLET 40 MG PO (20:21)
[2021-04-04 23:44] LABS: Glucose Point of Care 165 mg/dl (65-105)
[2021-04-05] VITALS (8 sets, daily range): BP systolic 89–106; BP diastolic 50–57; PULSE 60–96; RESP 16–20; TEMP 35.9–36.5; O2SAT 90–97
[2021-04-05 07:31] LABS: Basophils Percent Auto 0.2 % (0.2-1.2); Hematocrit 28.9 % (37.0-47.0); Hemoglobin 9.2 g/dL (12.0-15.0); Immature Granulocyte Absolute 0.03 K/mm3 (0.00-0.031); Immature Granulocyte Percent A 0.5 % (0-0.5); Lymphocytes Absolute Auto 2.53 K/mm3 (0.9-3.2); Mean Corpuscular HGB Conc 31.8 g/dl (32-36); Mean Corpuscular Hemoglobin 28.8 pg (26-34); Mean Corpuscular Volume 90.3 fl (80-100); Mean Platelet Volume 10.4 fl (7.4-10.4); Monocytes Absolute Auto 0.1 K/mm3 (0.1-0.6); Monocytes Percent Auto 2.2 % (2.6-8.5); Neutrophils Absolute Auto 3.2 K/mm3 (1.3-6.7); Neutrophils Percent Auto 54.1 % (45.5-73.1); Platelet Count Result 171 k/mm3 (150-375); Red Cell Distribution Width 16.9 % (11.5-14.5); White Blood Count 5.9 K/mm3 (4.5-10.0)
[2021-04-05 08:08] LABS: Alanine Aminotransferase 29 U/L (4-35); Albumin Level 3.5 g/dL (3.5-5.1); Alkaline Phosphatase 95 U/L (38-126); Anion Gap 13 mmol/L (8-16); Aspartate Amino Transferase 35 U/L (14-36); Bilirubin,Total 0.3 mg/dL (0.2-1.3); Blood Urea Nitrogen 65 mg/dL (7-17); Calcium 8.8 mg/dL (8.4-10.2); Carbon Dioxide 23 mmol/L (22-30); Chloride 98 mmol/L (98-107); Estimated CRCL calculation 16 ml/min; Estimated Glomerular Filt Rate 14; Glucose 245 mg/dL (65-110); Potassium 3.7 mmol/L (3.4-5.0); Sodium 134 mmol/L (137-145)
[2021-04-05] MEDS: FERROUS SULFATE 324 MG TABLET PO (09:27)
[2021-04-05] MEDS: MULTIVITAMINS /C LUTEIN (CENTRUM SILVER) TABLET *BKC 1 TAB PO (09:27)
[2021-04-05] MEDS: busPIRone HCL 5 MG TABLET 15 MG PO ×3 (09:27→16:56)
[2021-04-05] MEDS: PANTOPRAZOLE 40 MG TABLET PO ×2 (09:27→21:03)
[2021-04-05] MEDS: CHOLECALCIFEROL 400 UNITS TABLET (VIT D) PO (09:27)
[2021-04-05] MEDS: ASPIRIN 81 MG ENTERIC TABLET PO (09:27)
[2021-04-05] MEDS: VENLAFAXINE HCL XR 75 MG CAP.ER.24H PO (09:28)
[2021-04-05] MEDS: allopurinoL 100 MG TABLET BY MOUTH (09:28)
[2021-04-05] MEDS: FUROSEMIDE 40 MG TABLET BY MOUTH ×2 (09:28→16:56)
[2021-04-05] MEDS: lisinopriL 20 MG TABLET PO (09:28)
[2021-04-05] MEDS: CLOPIDOGREL BISULFATE 75 MG TABLET PO (09:28)
[2021-04-05] MEDS: carvediloL 25 MG TABLET BY MOUTH ×2 (09:28→21:03)
[2021-04-05] MEDS: INSULIN ASPART (*BKC) 100 UNITS/ML SUB-Q ×3 (09:33→19:50)
[2021-04-05 10:00] LABS: Glucose Point of Care 291 mg/dl (65-105)
[2021-04-05] MEDS: ALBUTEROL SULFATE (*SP) INHALER 2 PUFF INHALATION ×2 (10:01→21:47)
--- NOTE | 2021-04-05 12:46 | WPDURCON ---
Assessment and Plan Assessment and plan (1) Urinary tract infection: Qualifiers: Hematuria presence: with hematuria Urinary tract infection type: acute cystitis Qualified Code(s): N30.01 - Acute cystitis with hematuria Code(s): N39.0 - Urinary tract infection, site not specified Status: Acute Assessment and Plan: Recent urine culture now with Enterococcus. Unclear whether this is contaminant or not as she is incontinent of urine and unclear whether this was a catheterized specimen. Obtain bladder scan for postvoid residual. (2) Hydronephrosis: Code(s): N13.30 - Unspecified hydronephrosis Status: Acute Assessment and Plan: Currently asymptomatic and unclear with the this again is secondary to her recent infection. Will plan on repeating the scan to see if this is improving now that she has been treated with some antibiotics versus increasing. Further recommendations pending the renal CT [facility] Consult Note HPI Date Seen: 04/05/21 Requesting Physician: Lizzy Mike PA-C Primary Care Provider: Raul Ibarra DO Consult Narrative Reason for consult: Mild right hydronephrosis Narrative: Billie Holcomb is a 71 year old female with multiple medical issues including right-sided deficit, dysphagia, hypertension, [id number] diabetes, chronic anemia, and chronic lymphocytic leukemia who was admitted with weakness. She had a possible UTI as well as being COVID positive. She underwent a CT scan on her admission which revealed some mild right hydroureter without any evidence of stone. It was unclear whether this was due to her infection with some ureteral inflammation versus underlying mass. Patient is completely asymptomatic. Renal function is in the 2.7-3.5 range. Creatinine is not drawn today. Patient is incontinent of urine. And wears depends. Review of Systems Review of Systems: All systems reviewed & are unremarkable except as noted in HPI and below PMFSH Past Medical History Medical History Anemia of chronic disease Cerebrovascular accident (09/2008) 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 Chronic kidney disease, stage 4 (severe) Chronic lymphocytic leukemia Chronic obstructive pulmonary disease, unspecified Essential (primary) hypertension Hyperlipidemia, unspecified Seizure disorder Sleep apnea, unspecified Type 2 diabetes mellitus with diabetic polyneuropathy, without long-term current use of insulin Vitamin D deficiency, unspecified Surgical History Surgical History History of carpal tunnel release History of dilation and curettage History of elbow surgery History of exploratory laparotomy History of knee replacement History of partial hysterectomy Family History Family History Mother Family history of diabetes mellitus in first degree relative Diabetes mellitus Sibling Family history of diabetes mellitus in first degree relative Father Patient's father is Acute myocardial infarction Family history of congestive heart failure Other Family history of lymphoma Social History Social History Social History: Mrs. Holcomb lives at home with her and daughter. Consumes alcohol rarely and in moderation. She smoked up to 2 packs of cigarettes a day for about 20 years. Her and daughter are both smokers. No illicit substance use. She designates her , Jones Holcomb, as her surrogate decision maker. Code status: Full code. Meds Home Medications and Allergies Home Medications Medication Instructions Recorded Confirmed Type aspirin 81 mg tablet,delayed 81 mg PO DAILY 07/15/19 03/29/21 History release Adults Multivitamin 1 tabl
[2021-04-05 13:08] LABS: Glucose Point of Care 389 mg/dl (65-105)
--- NOTE | 2021-04-05 13:50 | PCRCNOTE ---
Window of time for administration has passed. See next scheduled administration.
[2021-04-05 17:53] LABS: Glucose Point of Care 363 mg/dl (65-105)
--- NOTE | 2021-04-05 18:23 | PM.IMPN ---
Progress Note: A&P Assessment and Plan (1) Urinary tract infection: Code(s): N39.0 - Urinary tract infection, site not specified Status: Acute Assessment and Plan: -Patient has been started on ceftriaxone #7 -Urine culture Group B strep, should be susceptible to cephalosporins - final sensitivity report not completed routinely for this organism. -spiked a fever overnight 04/02 so blood cultures were drawn, could also be due to covid infection. -no fevers overnight. -unable to get a sensitivity report as it has been longer than 72 hours -repeat UA still positive for UTI, likely colonization. Plan for discharge tomorrow. (2) COVID-19: Code(s): U07.1 - COVID-19 Status: Acute Assessment and Plan: -Patient has no oxygen requirement currently. -Given her clinical risk factor she is at higher risk for severe disease however cannot receive remdesivir due to her renal function. -still no oxygen requirement but cough seems to have worsened and lung sounds are also worse -continue supportive care measures -check ABG -patient is currently stable and afebrile -consider baricitinib and decadron if she develops oxygen requirement; there is no indication for such medications at this time. (3) Abnormal computed tomography of abdomen and pelvis: Code(s): R93.5 - Abnormal findings on diagnostic imaging of other abdominal regions, including retroperitoneum Status: Acute Assessment and Plan: CT shows mild right hydro ureteral nephrosis and urothelial thickening in the distal right ureter as well as diffuse bladder wall thickening. Findings may very well be related to inflammation due to underlying infection however radiologist cannot rule out malignancy. No obstructing kidney stones noted on that side. Urology was consulted. This is likely related to inflammation. Repeat KUB as an outpatient. (4) Generalized weakness: Code(s): R53.1 - Weakness Status: Acute Assessment and Plan: Secondary to urinary tract infection. Also positive for COVID. Initiate fall precautions. PT/OT. Concern about sending her home because she is bedbound/wheelchair bound secondary to prior stroke. and daughter both help care for her and transfer her. With her being covid positive, she is unable to care for herself and while in this isolation period I have concerns about exposing her other family members. (5) Anemia of chronic disease: Code(s): D63.8 - Anemia in other chronic diseases classified elsewhere Status: Acute Assessment and Plan: Hemoglobin and hematocrit are stable on review of previous labs. (6) Essential (primary) hypertension: Code(s): I10 - Essential (primary) hypertension Status: Chronic Assessment and Plan: Blood pressures were reviewed and they are stable. Antihypertensives will be reviewed and resumed as appropriate. (7) Type 2 diabetes mellitus with diabetic polyneuropathy, without long-term current use of insulin: Code(s): E11.42 - Type 2 diabetes mellitus with diabetic polyneuropathy Status: Chronic Assessment and Plan: -A1c January 2021 was 6.9 -Hold glipizide for now due to poor appetite and chronic kidney disease stage 4. -Initiate sliding scale insulin, Accu-Cheks, and hypoglycemic protocol. -Initially was started on low SS insulin but was increased to high dose SS due to persistent hyperglycemia. -Added 15 units of Lantus -continue monitoring closely (8) Chronic kidney disease, stage 4 (severe): Code(s): N18.4 - Chronic kidney disease, stage 4 (severe) Status: Chronic Assessment and Plan: Creatinine and GFR are stable on review of previous labs. Subjective Date/time seen: 04/05/21 18:23 Narrative: Billie Holcomb is a 71 year old female with multiple medical issues including right-sided deficit, dysphagia, hypertension, [id number]
--- NOTE | 2021-04-05 18:28 | PCRCNOTE ---
Window of time for administration has passed. See next scheduled administration.
[2021-04-05] MEDS: INSULIN GLARGINE (*BKC) 100 UNITS/ML 15 UNITS SUB-Q (21:01)
[2021-04-05] MEDS: TOPIRAMATE 100 MG TABLET BY MOUTH (21:03)
[2021-04-05] MEDS: SIMVASTATIN 20 MG TABLET 40 MG PO (21:03)
[2021-04-05 21:13] LABS: Glucose Point of Care 360 mg/dl (65-105)
[2021-04-06] VITALS (10 sets, daily range): BP systolic 115–140; BP diastolic 60–98; PULSE 67–97; RESP 18–22; TEMP 35.9–37.3; O2SAT 92–95; BMI 43.0
[2021-04-06] MEDS: guaiFENesin/DEXTROMETHORPHAN 10 ML UDC PO ×3 (01:53→20:35)
[2021-04-06 07:24] LABS: Anion Gap 14 mmol/L (8-16); Blood Urea Nitrogen 85 mg/dL (7-17); Calcium 8.8 mg/dL (8.4-10.2); Carbon Dioxide 23 mmol/L (22-30); Chloride 94 mmol/L (98-107); Estimated CRCL calculation 16 ml/min; Estimated Glomerular Filt Rate 14; Glucose 194 mg/dL (65-110); Potassium 3.5 mmol/L (3.4-5.0); Sodium 131 mmol/L (137-145)
[2021-04-06] MEDS: ALBUTEROL SULFATE (*SP) INHALER 2 PUFF INHALATION ×4 (08:17→20:38)
[2021-04-06] MEDS: VENLAFAXINE HCL XR 75 MG CAP.ER.24H PO (08:45)
[2021-04-06] MEDS: FERROUS SULFATE 324 MG TABLET PO (08:45)
[2021-04-06] MEDS: busPIRone HCL 5 MG TABLET 15 MG PO ×3 (08:45→18:23)
[2021-04-06] MEDS: CHOLECALCIFEROL 400 UNITS TABLET (VIT D) PO (08:45)
[2021-04-06] MEDS: calcitrioL 0.25 MCG CAPSULE PO (08:45)
[2021-04-06] MEDS: lisinopriL 20 MG TABLET PO (08:46)
[2021-04-06] MEDS: ASPIRIN 81 MG ENTERIC TABLET PO (08:46)
[2021-04-06] MEDS: CLOPIDOGREL BISULFATE 75 MG TABLET PO (08:46)
[2021-04-06] MEDS: allopurinoL 100 MG TABLET BY MOUTH (08:46)
[2021-04-06] MEDS: PANTOPRAZOLE 40 MG TABLET PO ×2 (08:46→20:35)
[2021-04-06] MEDS: MULTIVITAMINS /C LUTEIN (CENTRUM SILVER) TABLET *BKC 1 TAB PO (08:46)
[2021-04-06] MEDS: FUROSEMIDE 40 MG TABLET BY MOUTH ×2 (08:46→18:23)
[2021-04-06] MEDS: carvediloL 25 MG TABLET BY MOUTH ×2 (08:46→20:35)
[2021-04-06 09:22] LABS: Glucose Point of Care 173 mg/dl (65-105)
--- NOTE | 2021-04-06 10:48 | PM.IMPN ---
Progress Note: A&P Assessment and Plan (1) Altered mental status: Code(s): R41.82 - Altered mental status, unspecified Status: Acute Assessment and Plan: Patient has a known diagnosis of cerebrovascular accident, with right residual deficits. However she was able to communicate. Today she utters some words and moans. She is not able to pinpoint the location of pain. Given risk factor for stroke, will of [address] scan of the brain. Meanwhile allow permissive hypertension and hold blood pressure medications. (2) Urinary tract infection: Code(s): N39.0 - Urinary tract infection, site not specified Status: Acute Assessment and Plan: -Patient has been started on ceftriaxone #8 -Urine culture Group B strep, should be susceptible to cephalosporins - final sensitivity report not completed routinely for this organism. -spiked a fever overnight 04/02 so blood cultures were drawn, could also be due to covid infection. -no fevers overnight. -repeat UA still positive for UTI, likely colonization. (3) COVID-19: Code(s): U07.1 - COVID-19 Status: Acute Assessment and Plan: -Patient has no oxygen requirement currently. -there is no indication for remdesivir. -Given her clinical risk factor she is at higher risk for severe disease however cannot receive remdesivir due to her renal function. -still no oxygen requirement but cough seems to have worsened and lung sounds are also worse -continue supportive care measures -check ABG -patient is currently stable and afebrile -we would consider baricitinib and decadron if she develops oxygen requirement; there is no indication for such medications at this time. (4) Abnormal computed tomography of abdomen and pelvis: Code(s): R93.5 - Abnormal findings on diagnostic imaging of other abdominal regions, including retroperitoneum Status: Acute Assessment and Plan: CT shows mild right hydro ureteral nephrosis and urothelial thickening in the distal right ureter as well as diffuse bladder wall thickening. Findings may very well be related to inflammation due to underlying infection however radiologist cannot rule out malignancy. No obstructing kidney stones noted on that side. Urology was consulted. This is likely related to inflammation. Repeat KUB as an outpatient. (5) Generalized weakness: Code(s): R53.1 - Weakness Status: Acute Assessment and Plan: Secondary to urinary tract infection. Also positive for COVID. Initiate fall precautions. PT/OT. Concern about sending her home because she is bedbound/wheelchair bound secondary to prior stroke. and daughter both help care for her and transfer her. With her being covid positive, she is unable to care for herself and while in this isolation period I have concerns about exposing her other family members. (6) Anemia of chronic disease: Code(s): D63.8 - Anemia in other chronic diseases classified elsewhere Status: Acute Assessment and Plan: Hemoglobin and hematocrit are stable on review of previous labs. (7) Essential (primary) hypertension: Code(s): I10 - Essential (primary) hypertension Status: Chronic Assessment and Plan: Blood pressures were reviewed and they are stable. Antihypertensives on hold in the setting of altered mental status. (8) Type 2 diabetes mellitus with diabetic polyneuropathy, without long-term current use of insulin: Code(s): E11.42 - Type 2 diabetes mellitus with diabetic polyneuropathy Status: Chronic Assessment and Plan: -A1c January 2021 was 6.9 -Hold glipizide for now due to poor appetite and chronic kidney disease stage 4. -Initiate sliding scale insulin, Accu-Cheks, and hypoglycemic protocol. -Accu-Cheks in the 173-389 range. -Initially was started on low SS insulin but was increased to high dose SS due to persistent hyperglycemia. -we leia
[2021-04-06] MEDS: INSULIN ASPART (*BKC) 100 UNITS/ML SUB-Q (12:13)
[2021-04-06 12:14] LABS: Glucose Point of Care 205 mg/dl (65-105)
[2021-04-06 16:37] LABS: Troponin I 0.014 ng/mL (0.000-0.034)
[2021-04-06 18:29] LABS: Glucose Point of Care 159 mg/dl (65-105)
[2021-04-06] MEDS: INSULIN GLARGINE (*BKC) 100 UNITS/ML 15 UNITS SUB-Q (20:33)
[2021-04-06] MEDS: SIMVASTATIN 20 MG TABLET 40 MG PO (20:35)
[2021-04-06] MEDS: TOPIRAMATE 100 MG TABLET BY MOUTH (20:35)
[2021-04-06 23:03] LABS: Glucose Point of Care 166 mg/dl (65-105)
[2021-04-07] VITALS (9 sets, daily range): BP systolic 93–114; BP diastolic 48–64; PULSE 66–77; RESP 18–22; TEMP 36.5–37.2; O2SAT 90–96
[2021-04-07 04:16] LABS: Appearance Urine Clear (Clear); Bilirubin Urine Negative (Negative); Blood Urine 2+ (Negative); Color Urine Yellow (Yellow); Glucose Urine UA Negative (Negative); Ketones Urine Negative (Negative); Nitrate Urine Negative (Negative); Protein Urine Negative (Negative); Specific Grav Ur 1.011 (1.001-1.035); Urobilinogen Urine Negative mg/dL (<2.0)
[2021-04-07 04:17] LABS: Add Urine Microscopic? YES; Leukocyte Esterase Ur Negative LEU/UL (NEGATIVE); Mucus Urine Rare /lpf; Squamous Epithelial Cell Urine Few /hpf (Few); WBC Urine 16-20 /hpf (0-3)
[2021-04-07] MEDS: busPIRone HCL 5 MG TABLET 15 MG PO ×3 (08:19→18:33)
[2021-04-07] MEDS: FUROSEMIDE 40 MG TABLET BY MOUTH ×2 (08:20→18:34)
[2021-04-07] MEDS: MULTIVITAMINS /C LUTEIN (CENTRUM SILVER) TABLET *BKC 1 TAB PO (08:20)
[2021-04-07] MEDS: PANTOPRAZOLE 40 MG TABLET PO ×2 (08:20→20:39)
[2021-04-07] MEDS: allopurinoL 100 MG TABLET BY MOUTH (08:20)
[2021-04-07] MEDS: CHOLECALCIFEROL 400 UNITS TABLET (VIT D) PO (08:20)
[2021-04-07] MEDS: VENLAFAXINE HCL XR 75 MG CAP.ER.24H PO (08:20)
[2021-04-07] MEDS: ASPIRIN 81 MG ENTERIC TABLET PO (08:20)
[2021-04-07] MEDS: carvediloL 25 MG TABLET BY MOUTH ×2 (08:20→20:39)
[2021-04-07] MEDS: lisinopriL 20 MG TABLET PO (08:20)
[2021-04-07] MEDS: CLOPIDOGREL BISULFATE 75 MG TABLET PO (08:20)
[2021-04-07] MEDS: FERROUS SULFATE 324 MG TABLET PO (08:20)
[2021-04-07 08:47] LABS: Glucose Point of Care 147 mg/dl (65-105)
[2021-04-07] MEDS: ALBUTEROL SULFATE (*SP) INHALER 2 PUFF INHALATION ×2 (09:34→16:02)
[2021-04-07 13:11] LABS: Glucose Point of Care 200 mg/dl (65-105)
--- NOTE | 2021-04-07 15:49 | PM.IMPN ---
Progress Note: A&P Assessment and Plan (1) Altered mental status: Code(s): R41.82 - Altered mental status, unspecified Status: Acute Assessment and Plan: Patient has a known diagnosis of cerebrovascular accident, with right residual deficits. However she was able to communicate. Today She is more awake, alert and somewhat communicative. Head CT was unremarkable on during 04/06/2021.. Meanwhile allow permissive hypertension and hold blood pressure medications. (2) Urinary tract infection: Code(s): N39.0 - Urinary tract infection, site not specified Status: Acute Assessment and Plan: -Patient has been started on ceftriaxone #9 -Urine culture Group B strep, should be susceptible to cephalosporins - final sensitivity report not completed routinely for this organism. -spiked a fever overnight 04/02 so blood cultures were drawn, could also be due to covid infection. -no fevers overnight. -repeat UA still positive for UTI, likely colonization. (3) COVID-19: Code(s): U07.1 - COVID-19 Status: Acute Assessment and Plan: -Patient Currently requiring oxygen 2 L. - remdesivir cannot be started due to poor kidney function. - Start dexamethasone - repeat chest x-ray. -continue supportive care measures -check ABG -patient is currently stable and afebrile -we would consider baricitinib if she develops escalating oxygen requirement; there is no indication for such medications at this time. (4) Abnormal computed tomography of abdomen and pelvis: Code(s): R93.5 - Abnormal findings on diagnostic imaging of other abdominal regions, including retroperitoneum Status: Acute Assessment and Plan: CT shows mild right hydro ureteral nephrosis and urothelial thickening in the distal right ureter as well as diffuse bladder wall thickening. Findings may very well be related to inflammation due to underlying infection however radiologist cannot rule out malignancy. No obstructing kidney stones noted on that side. Urology was consulted. This is likely related to inflammation. Repeat KUB as an outpatient. (5) Generalized weakness: Code(s): R53.1 - Weakness Status: Acute Assessment and Plan: Secondary to urinary tract infection. Also positive for COVID. Initiate fall precautions. PT/OT. Concern about sending her home because she is bedbound/wheelchair bound secondary to prior stroke. and daughter both help care for her and transfer her. With her being covid positive, she is unable to care for herself and while in this isolation period I have concerns about exposing her other family members. (6) Anemia of chronic disease: Code(s): D63.8 - Anemia in other chronic diseases classified elsewhere Status: Acute Assessment and Plan: Hemoglobin and hematocrit are stable on review of previous labs. anemia is moderate and well torated with a hemoglobin of 9.2. 2. (7) Essential (primary) hypertension: Code(s): I10 - Essential (primary) hypertension Status: Chronic Assessment and Plan: Blood pressures were reviewed and they are 93/51-114/57. Continue to hold antihypertensive (8) Type 2 diabetes mellitus with diabetic polyneuropathy, without long-term current use of insulin: Code(s): E11.42 - Type 2 diabetes mellitus with diabetic polyneuropathy Status: Chronic Assessment and Plan: -A1c January 2021 was 6.9 -Hold glipizide for now due to poor appetite and chronic kidney disease stage 4. -Initiate sliding scale insulin, Accu-Cheks, and hypoglycemic protocol. -Accu-Cheks in the 147-200 range. -Initially was started on low SS insulin but was increased to high dose SS due to persistent hyperglycemia. - Continue Lantus 30 units. may need higher long-acting insulin due to initiation of steroids. -continue monitoring closely (9) Chronic kidney disease, stage 4 (severe):
--- NOTE | 2021-04-07 15:55 | PCRCNOTE ---
Window of time for administration has passed. See next scheduled administration.
[2021-04-07 17:25] LABS: Glucose Point of Care 173 mg/dl (65-105)
[2021-04-07] MEDS: TOPIRAMATE 100 MG TABLET BY MOUTH (20:39)
[2021-04-07] MEDS: SIMVASTATIN 20 MG TABLET 40 MG PO (20:39)
[2021-04-07] MEDS: INSULIN GLARGINE (*BKC) 100 UNITS/ML 15 UNITS SUB-Q (21:41)
[2021-04-07 21:44] LABS: Glucose Point of Care 197 mg/dl (65-105)
[2021-04-08] VITALS (10 sets, daily range): BP systolic 99–136; BP diastolic 48–64; PULSE 59–72; RESP 18–22; TEMP 36–37.2; O2SAT 91–94
[2021-04-08 08:06] LABS: Glucose Point of Care 172 mg/dl (65-105)
[2021-04-08] MEDS: ALBUTEROL SULFATE (*SP) INHALER 2 PUFF INHALATION ×4 (08:36→19:24)
[2021-04-08] MEDS: PANTOPRAZOLE 40 MG TABLET PO ×2 (09:37→20:46)
[2021-04-08] MEDS: FUROSEMIDE 40 MG TABLET BY MOUTH ×2 (09:37→17:47)
[2021-04-08] MEDS: MULTIVITAMINS /C LUTEIN (CENTRUM SILVER) TABLET *BKC 1 TAB PO (09:38)
[2021-04-08] MEDS: carvediloL 25 MG TABLET BY MOUTH ×2 (09:38→20:47)
[2021-04-08] MEDS: ASPIRIN 81 MG ENTERIC TABLET PO (09:38)
[2021-04-08] MEDS: calcitrioL 0.25 MCG CAPSULE PO (09:38)
[2021-04-08] MEDS: VENLAFAXINE HCL XR 75 MG CAP.ER.24H PO (09:38)
[2021-04-08] MEDS: FERROUS SULFATE 324 MG TABLET PO (09:38)
[2021-04-08] MEDS: busPIRone HCL 5 MG TABLET 15 MG PO ×3 (09:38→17:47)
[2021-04-08] MEDS: lisinopriL 20 MG TABLET PO (09:38)
[2021-04-08] MEDS: CLOPIDOGREL BISULFATE 75 MG TABLET PO (09:38)
[2021-04-08] MEDS: CHOLECALCIFEROL 400 UNITS TABLET (VIT D) PO (09:38)
[2021-04-08] MEDS: allopurinoL 100 MG TABLET BY MOUTH (09:38)
--- NOTE | 2021-04-08 10:28 | WPDUROPN2 ---
Progress Note: A&P Assessment and Plan (1) Hydronephrosis: Code(s): N13.30 - Unspecified hydronephrosis Status: Acute Assessment and Plan: Repeat CT scan revealed decrease in the right-sided hydronephrosis. Still most likely related to inflammation with cystitis or pyelitis. No further intervention at this time. Subjective Subjective Date/Time Seen: 04/08/21 10:28 Objective Data Vital Signs Vital Signs: Vital Signs - 24 hr 04/07/21 12:00 04/07/21 16:00 04/07/21 20:00 Temperature 36.7 C 37.2 C Pulse Rate 68 74 Respiratory Rate 18 20 Blood Pressure 108/48 L 110/64 Pulse Oximetry 93 96 92 04/07/21 20:39 04/08/21 00:00 04/08/21 00:02 Temperature 36.8 C Pulse Rate 76 72 Respiratory Rate 20 Blood Pressure 136/64 Pulse Oximetry 92 92 04/08/21 04:00 04/08/21 08:00 04/08/21 08:36 Temperature 36.8 C 37.2 C Pulse Rate 70 69 Respiratory Rate 20 22 H Blood Pressure 106/48 L 105/60 Pulse Oximetry 92 91 94 Intake/Output Intake/Output: Intake & Output 04/05/21 04/06/21 04/07/21 04/08/21 23:59 23:59 23:59 23:59 Intake Total 029 612 1381 350 Output Total 100 Balance 038 862 5250 350 Meds/Results Medications: Active Medications Generic Name Dose Route Start Last Admin Trade Name Freq PRN Reason Stop Dose Admin Acetaminophen 650 mg 04/02/21 16:22 04/02/21 16:35 Acetaminophen 325 Mg Tablet PO 650 mg Q4H PRN Administration Headache Albuterol 2 puff 04/02/21 08:00 04/08/21 08:36 Albuterol Sulfate (*Sp) Inhaler INHALATION 2 puff QIDRT EFRAIN Administration Allopurinol 100 mg 03/30/21 08:00 04/08/21 09:38 Allopurinol 100 Mg Tablet BY MOUTH 100 mg DAILY@0800 EFRAIN Administration Aspirin 81 mg 03/30/21 09:00 04/08/21 09:38 Aspirin 81 Mg Enteric Tablet PO 81 mg DAILY EFRAIN Administration Buspirone HCl 15 mg 03/30/21 09:00 04/08/21 09:38 Buspirone Hcl 5 Mg Tablet PO 15 mg TID EFRAIN Administration Calcitriol 0.25 mcg 03/30/21 09:00 04/08/21 09:38 Calcitriol 0.25 Mcg Capsule PO 0.25 mcg MoWeFr@0900 EFRAIN Administration Carvedilol 25 mg 03/30/21 09:00 04/08/21 09:38 Carvedilol 25 Mg Tablet BY MOUTH 25 mg Q12HR EFRAIN Administration Clopidogrel Bisulfate 75 mg 03/30/21 09:00 04/08/21 09:38 Clopidogrel Bisulfate 75 Mg Tablet PO 75 mg DAILY EFRAIN Administration Dexamethasone Sodium Phosphate 6 mg 04/07/21 14:55 04/08/21 09:37 Dexamethasone Sod Phos Inj 10 Mg/Ml 1 Ml Vial IV PUSH 04/16/21 09:01 6 mg DAILY EFRAIN Administration Dextrose 12.5 gm 03/29/21 15:08 Dextrose 50% 25 Gm/50 Ml Syringe IV PUSH PRN PRN Hypoglycemia Protocol Ferrous Sulfate 324 mg 03/30/21 08:00 04/08/21 09:38 Ferrous Sulfate 324 Mg Tablet PO 324 mg DAILY@0800 EFRAIN Administration Furosemide 40 mg 03/30/21 09:00 04/08/21 09:37 Furosemide 40 Mg Tablet BY MOUTH 40 mg BID EFRAIN Administration Glucagon 1 mg 03/29/21 15:08 Glucagon For Inj 1 Mg Vial IM PRN PRN Hypoglycemia Protocol Glucose 15 gm 03/29/21 15:08 Glucose Oral Gel 15 Gm Of Glucse In 37.5 Gm Tube PO PRN PRN Hypoglycemia Protocol Guaifenesin/Dextromethorphan 10 ml 03/31/21 21:07 04/06/21 20:35 Guaifenesin/Dextromethorphan 10 Ml Udc PO 10 ml Q6H PRN Administration Cough Ceftriaxone Sodium/Dextrose 1 gm in 50 mls @ 100 mls/hr 03/30/21 12:00 04/08/21 09:10 Rocephin 1 Gm/D5w 50 Ml IVPB Infused Q24H EFRAIN Infusion Dextrose 1,000 mls @ 100 mls/hr 03/29/21 15:08 Dextrose 5% 1,000 Ml IVPB PRN PRN Hypoglycemia Protocol Insulin Aspart 4 - 8 units 04/02/21 12:00 04/08/21 09:10 Insulin Aspart (*Bkc) 100 Units/Ml SUB-Q Not Given [facility] Protocol Insulin Glargine 15 units 04/01/21 21:00 04/07/21 21:41 Insulin Glargine (*Bkc) 100 Units/Ml SUB-Q 15 units HS EFRAIN Administration Lisinopril 20 mg 03/30/21 09:00
[2021-04-08 13:12] LABS: Glucose Point of Care 259 mg/dl (65-105)
--- NOTE | 2021-04-08 13:29 | PM.IMPN ---
Progress Note: A&P Assessment and Plan (1) Altered mental status: Code(s): R41.82 - Altered mental status, unspecified Status: Acute Assessment and Plan: Altered mental status. Patient is confused and lethargic p.o. lower intake is very poor. Patient is assistance with feeding. We will order stat swallow evaluation. We started IV fluids. Patient at risk of aspiration pneumonia. We will order stat chest x-ray, ABG and nebulization treatment. Patient has a known diagnosis of cerebrovascular accident, with right residual deficits. However she was able to communicate. Today She is more awake, alert and somewhat communicative. Head CT was unremarkable on during 04/06/2021.. Meanwhile allow permissive hypertension and hold blood pressure medications. As of today the blood pressure has been in the 102/60 4-106/48 range. (2) Urinary tract infection: Code(s): N39.0 - Urinary tract infection, site not specified Status: Acute Assessment and Plan: -Patient has been started on ceftriaxone #9 -Urine culture Group B strep, should be susceptible to cephalosporins - final sensitivity report not completed routinely for this organism. -spiked a fever overnight 04/02 so blood cultures were drawn, could also be due to covid infection. -no fevers overnight. -repeat UA still positive for UTI, likely colonization. (3) COVID-19: Code(s): U07.1 - COVID-19 Status: Acute Assessment and Plan: -Patient Currently requiring oxygen 2 L. - remdesivir cannot be started due to poor kidney function. - Start dexamethasone - repeat chest x-ray. -continue supportive care measures -check ABG -patient is currently stable and afebrile -we would consider baricitinib if she develops escalating oxygen requirement; there is no indication for such medications at this time. (4) Abnormal computed tomography of abdomen and pelvis: Code(s): R93.5 - Abnormal findings on diagnostic imaging of other abdominal regions, including retroperitoneum Status: Acute Assessment and Plan: CT shows mild right hydro ureteral nephrosis and urothelial thickening in the distal right ureter as well as diffuse bladder wall thickening. Findings may very well be related to inflammation due to underlying infection however radiologist cannot rule out malignancy. No obstructing kidney stones noted on that side. Urology was consulted. This is likely related to inflammation. Repeat KUB as an outpatient. (5) Generalized weakness: Code(s): R53.1 - Weakness Status: Acute Assessment and Plan: Secondary to urinary tract infection. Also positive for COVID. Initiate fall precautions. PT/OT. Concern about sending her home because she is bedbound/wheelchair bound secondary to prior stroke. and daughter both help care for her and transfer her. With her being covid positive, she is unable to care for herself and while in this isolation period I have concerns about exposing her other family members. (6) Anemia of chronic disease: Code(s): D63.8 - Anemia in other chronic diseases classified elsewhere Status: Acute Assessment and Plan: Hemoglobin and hematocrit are stable on review of previous labs. anemia is moderate and well torated with a hemoglobin of 9.2. 2. (7) Essential (primary) hypertension: Code(s): I10 - Essential (primary) hypertension Status: Chronic Assessment and Plan: Blood pressures were reviewed and they are 93/51-114/57. Continue to hold antihypertensive (8) Type 2 diabetes mellitus with diabetic polyneuropathy, without long-term current use of insulin: Code(s): E11.42 - Type 2 diabetes mellitus with diabetic polyneuropathy Status: Chronic Assessment and Plan: -A1c January 2021 was 6.9 -Hold glipizide for now due to poor appetite and chronic kidney disease stage 4. -Initiate sliding scale insulin
[2021-04-08] MEDS: INSULIN ASPART (*BKC) 100 UNITS/ML SUB-Q ×2 (13:32→17:47)
--- NOTE | 2021-04-08 14:25 | PCPTNOTE ---
The patient treatment was not able to be completed due to patient with OT. Will plan to continue treatment per plan of care.
[2021-04-08 16:49] LABS: Glucose Point of Care 269 mg/dl (65-105)
[2021-04-08] MEDS: SODIUM CHLORIDE 0.9% IV 1,000 ML 30 ML IV CONT (17:43)
[2021-04-08] MEDS: SIMVASTATIN 20 MG TABLET 40 MG PO (20:46)
[2021-04-08] MEDS: TOPIRAMATE 100 MG TABLET BY MOUTH (20:46)
[2021-04-08] MEDS: INSULIN GLARGINE (*BKC) 100 UNITS/ML 15 UNITS SUB-Q (20:47)
[2021-04-08 21:32] LABS: Glucose Point of Care 376 mg/dl (65-105)
[2021-04-08] MEDS: INSULIN ASPART (*BKC) 100 UNITS/ML 6 UNITS SUB-Q (23:03)
[2021-04-09] VITALS (13 sets, daily range): BP systolic 91–117; BP diastolic 59–79; PULSE 54–96; RESP 18–24; TEMP 36–36.4; O2SAT 87–99
[2021-04-09] MEDS: guaiFENesin/DEXTROMETHORPHAN 10 ML UDC PO (05:39)
[2021-04-09] MEDS: ALBUTEROL SULFATE (*SP) INHALER 2 PUFF INHALATION ×4 (08:15→20:10)
[2021-04-09] MEDS: carvediloL 25 MG TABLET BY MOUTH ×2 (08:51→20:24)
[2021-04-09] MEDS: FERROUS SULFATE 324 MG TABLET PO (08:51)
[2021-04-09] MEDS: busPIRone HCL 5 MG TABLET 15 MG PO ×3 (08:51→17:44)
[2021-04-09] MEDS: MULTIVITAMINS /C LUTEIN (CENTRUM SILVER) TABLET *BKC 1 TAB PO (08:51)
[2021-04-09] MEDS: CHOLECALCIFEROL 400 UNITS TABLET (VIT D) PO (08:51)
[2021-04-09] MEDS: lisinopriL 20 MG TABLET PO (08:51)
[2021-04-09] MEDS: FUROSEMIDE 40 MG TABLET BY MOUTH ×2 (08:52→17:44)
[2021-04-09] MEDS: VENLAFAXINE HCL XR 75 MG CAP.ER.24H PO (08:52)
[2021-04-09] MEDS: ASPIRIN 81 MG ENTERIC TABLET PO (08:52)
[2021-04-09] MEDS: allopurinoL 100 MG TABLET BY MOUTH (08:52)
[2021-04-09] MEDS: CLOPIDOGREL BISULFATE 75 MG TABLET PO (08:52)
[2021-04-09] MEDS: PANTOPRAZOLE 40 MG TABLET PO ×2 (08:52→20:24)
[2021-04-09] MEDS: INSULIN ASPART (*BKC) 100 UNITS/ML SUB-Q ×3 (08:56→17:45)
[2021-04-09 09:18] LABS: Glucose Point of Care 258 mg/dl (65-105)
[2021-04-09 10:54] LABS: Anion Gap 13 mmol/L (8-16); Blood Urea Nitrogen 97 mg/dL (7-17); Calcium 8.9 mg/dL (8.4-10.2); Carbon Dioxide 23 mmol/L (22-30); Chloride 99 mmol/L (98-107); Estimated CRCL calculation 16 ml/min; Estimated Glomerular Filt Rate 14; Glucose 287 mg/dL (65-110); Potassium 3.6 mmol/L (3.4-5.0); Sodium 135 mmol/L (137-145)
[2021-04-09 12:10] LABS: Glucose Point of Care 385 mg/dl (65-105)
[2021-04-09] MEDS: WATER FOR IRRIGATION, STERILE 1,000 ML BOTTLE 1000 ML (12:47)
--- NOTE | 2021-04-09 16:57 | P.PNIM_ITS ---
Progress Note: A&P Assessment and Plan (1) Altered mental status: Code(s): R41.82 - Altered mental status, unspecified Status: Acute Assessment and Plan: Altered mental status. Patient is confused and lethargic p.o. lower intake is very poor. Patient is assistance with feeding. We will order stat swallow evaluation. We started IV fluids. Patient at risk of aspiration pneumonia. We will order stat chest x-ray, ABG and nebulization treatment. Patient has a known diagnosis of cerebrovascular accident, with right residual deficits. However she was able to communicate. Today She is more awake, alert and somewhat communicative. Head CT was unremarkable on during 04/06/2021.. Meanwhile allow permissive hypertension and hold blood pressure medications. As of today the blood pressure has been in the 102/60 4-106/48 range. (2) Urinary tract infection: Code(s): N39.0 - Urinary tract infection, site not specified Status: Acute Assessment and Plan: -Patient has been started on ceftriaxone #9 -Urine culture Group B strep, should be susceptible to cephalosporins - final sensitivity report not completed routinely for this organism. -spiked a fever overnight 04/02 so blood cultures were drawn, could also be due to covid infection. -no fevers overnight. -repeat UA still positive for UTI, likely colonization. (3) COVID-19: Code(s): U07.1 - COVID-19 Status: Acute Assessment and Plan: -Patient Currently requiring oxygen 2 L. - remdesivir cannot be started due to poor kidney function. - Start dexamethasone - repeat chest x-ray. -continue supportive care measures -check ABG -patient is currently stable and afebrile -we would consider baricitinib if she develops escalating oxygen requirement; there is no indication for such medications at this time. (4) Abnormal computed tomography of abdomen and pelvis: Code(s): R93.5 - Abnormal findings on diagnostic imaging of other abdominal regions, including retroperitoneum Status: Acute Assessment and Plan: CT shows mild right hydro ureteral nephrosis and urothelial thickening in the distal right ureter as well as diffuse bladder wall thickening. Findings may very well be related to inflammation due to underlying infection however radiologist cannot rule out malignancy. No obstructing kidney stones noted on that side. Urology was consulted. This is likely related to inflammation. Repeat KUB as an outpatient. (5) Generalized weakness: Code(s): R53.1 - Weakness Status: Acute Assessment and Plan: Secondary to urinary tract infection. Also positive for COVID. Initiate fall precautions. PT/OT. Concern about sending her home because she is bedbound/wheelchair bound secondary to prior stroke. and daughter both help care for her and transfer her. With her being covid positive, she is unable to care for herself and while in this isolation period I have concerns about exposing her other family members. (6) Anemia of chronic disease: Code(s): D63.8 - Anemia in other chronic diseases classified elsewhere Status: Acute Assessment and Plan: Hemoglobin and hematocrit are stable on review of previous labs. anemia is moderate and well torated with a hemoglobin of 9.2. 2. (7) Essential (primary) hypertension: Code(s): I10 - Essential (primary) hypertension Status: Chronic Assessment and Plan: Blood pressures were reviewed and they are 93/51-114/57. Continue to hold antihypertensive
[2021-04-09 17:09] LABS: Glucose Point of Care 252 mg/dl (65-105)
[2021-04-09] MEDS: TOPIRAMATE 100 MG TABLET BY MOUTH (20:23)
[2021-04-09] MEDS: SIMVASTATIN 20 MG TABLET 40 MG PO (20:23)
[2021-04-09] MEDS: INSULIN GLARGINE (*BKC) 100 UNITS/ML 15 UNITS SUB-Q (20:33)
[2021-04-09 21:56] LABS: Glucose Point of Care 204 mg/dl (65-105)
[2021-04-10] VITALS (10 sets, daily range): BP systolic 102–122; BP diastolic 45–64; PULSE 61–85; RESP 16–22; TEMP 36.8–37.4; O2SAT 89–99
[2021-04-10 08:07] LABS: Hematocrit 27.2 % (37.0-47.0); Hemoglobin 8.7 g/dL (12.0-15.0); Mean Corpuscular Hemoglobin 28.9 pg (26-34); Mean Corpuscular Volume 90.4 fl (80-100); Mean Platelet Volume 10.8 fl (7.4-10.4); Platelet Count Result 285 k/mm3 (150-375); Red Blood Count 3.01 M/mm3 (4.2-5.4); Red Cell Distribution Width 16.8 % (11.5-14.5); White Blood Count 7.7 K/mm3 (4.5-10.0)
[2021-04-10 08:21] LABS: Glucose Point of Care 255 mg/dl (65-105)
[2021-04-10] MEDS: MULTIVITAMINS /C LUTEIN (CENTRUM SILVER) TABLET *BKC 1 TAB PO (08:36)
[2021-04-10] MEDS: PANTOPRAZOLE 40 MG TABLET PO (08:36)
[2021-04-10] MEDS: VENLAFAXINE HCL XR 75 MG CAP.ER.24H PO (08:36)
[2021-04-10] MEDS: CLOPIDOGREL BISULFATE 75 MG TABLET PO (08:36)
[2021-04-10] MEDS: lisinopriL 20 MG TABLET PO (08:36)
[2021-04-10] MEDS: FUROSEMIDE 40 MG TABLET BY MOUTH (08:36)
[2021-04-10] MEDS: ASPIRIN 81 MG ENTERIC TABLET PO (08:36)
[2021-04-10] MEDS: carvediloL 25 MG TABLET BY MOUTH (08:36)
[2021-04-10] MEDS: CHOLECALCIFEROL 400 UNITS TABLET (VIT D) PO (08:36)
[2021-04-10] MEDS: allopurinoL 100 MG TABLET BY MOUTH (08:36)
[2021-04-10] MEDS: busPIRone HCL 5 MG TABLET 15 MG PO ×3 (08:36→16:25)
[2021-04-10] MEDS: FERROUS SULFATE 324 MG TABLET PO (08:36)
[2021-04-10] MEDS: INSULIN ASPART (*BKC) 100 UNITS/ML SUB-Q ×2 (08:37→12:20)
[2021-04-10] MEDS: INSULIN GLARGINE (*BKC) 100 UNITS/ML 16 UNITS SUB-Q (08:38)
[2021-04-10 08:49] LABS: Anion Gap 15 mmol/L (8-16); Blood Urea Nitrogen 118 mg/dL (7-17); CRP 14.3 mg/dL (<1.0); Calcium 8.8 mg/dL (8.4-10.2); Carbon Dioxide 19 mmol/L (22-30); Chloride 100 mmol/L (98-107); Estimated CRCL calculation 14 ml/min; Estimated Glomerular Filt Rate 12; Glucose 278 mg/dL (65-110); Lactate Dehydrogenase 590 U/L (313-618); Potassium 3.7 mmol/L (3.4-5.0); Sodium 134 mmol/L (137-145)
[2021-04-10] MEDS: ALBUTEROL SULFATE (*SP) INHALER 2 PUFF INHALATION ×4 (10:14→20:24)
--- NOTE | 2021-04-10 11:03 | PM.IMPN ---
Progress Note: A&P Assessment and Plan (1) Altered mental status: Code(s): R41.82 - Altered mental status, unspecified Status: Acute Assessment and Plan: Altered mental status. Head CT was unremarkable. Will consult Neurology. Patient is confused and lethargic p.o. lower intake is very poor. Patient is assistance with feeding. We will order stat swallow evaluation. We started IV fluids. Patient at risk of aspiration pneumonia. We will order stat chest x-ray, ABG and nebulization treatment. Patient has a known diagnosis of cerebrovascular accident, with right residual deficits. However she was able to communicate. Today She is more awake, alert and somewhat communicative. Head CT was unremarkable on during 04/06/2021.. Meanwhile allow permissive hypertension and hold blood pressure medications. As of today the blood pressure has been in the 102/50 1- 15/45 range. (2) Urinary tract infection: Code(s): N39.0 - Urinary tract infection, site not specified Status: Acute Assessment and Plan: -Patient has been started on ceftriaxone #10. -will stop ceftriaxone. -Urine culture Group B strep, should be susceptible to cephalosporins - final sensitivity report not completed routinely for this organism. -spiked a fever overnight 04/02 so blood cultures were drawn, could also be due to covid infection. -no fevers overnight. -repeat UA still positive for UTI, likely colonization. (3) COVID-19: Code(s): U07.1 - COVID-19 Status: Acute Assessment and Plan: -Patient Currently requiring oxygen 2 L. - remdesivir cannot be started due to poor kidney function. - Start dexamethasone - repeat chest x-ray. -continue supportive care measures -check ABG -patient is currently stable and afebrile. -start baricitinib in consideration for escalating oxygen requirement; (4) Abnormal computed tomography of abdomen and pelvis: Code(s): R93.5 - Abnormal findings on diagnostic imaging of other abdominal regions, including retroperitoneum Status: Acute Assessment and Plan: CT shows mild right hydro ureteral nephrosis and urothelial thickening in the distal right ureter as well as diffuse bladder wall thickening. Findings may very well be related to inflammation due to underlying infection however radiologist cannot rule out malignancy. No obstructing kidney stones noted on that side. Urology was consulted. This is likely related to inflammation. Repeat KUB as an outpatient. (5) Generalized weakness: Code(s): R53.1 - Weakness Status: Acute Assessment and Plan: Secondary to urinary tract infection. Also positive for COVID. Initiate fall precautions. PT/OT. Concern about sending her home because she is bedbound/wheelchair bound secondary to prior stroke. and daughter both help care for her and transfer her. With her being covid positive, she is unable to care for herself and while in this isolation period I have concerns about exposing her other family members. (6) Anemia of chronic disease: Code(s): D63.8 - Anemia in other chronic diseases classified elsewhere Status: Acute Assessment and Plan: Hemoglobin and hematocrit are stable on review of previous labs. anemia is moderate and well torated with a hemoglobin of 9.2. 2. (7) Essential (primary) hypertension: Code(s): I10 - Essential (primary) hypertension Status: Chronic Assessment and Plan: Blood pressures were reviewed and they are 93/51-114/57. Continue to hold antihypertensive (8) Type 2 diabetes mellitus with diabetic polyneuropathy, without long-term current use of insulin: Code(s): E11.42 - Type 2 diabetes mellitus with diabetic polyneuropathy Status: Chronic Assessment and Plan: -A1c January 2021 was 6.9 -Hold glipizide for now due to poor appetite and chronic kidney disease stage 4. -Initiate sliding scal
[2021-04-10] MEDS: SODIUM CHLORIDE 0.9% IV 1,000 ML 30 ML IV CONT (12:05)
[2021-04-10 12:23] LABS: Glucose Point of Care 259 mg/dl (65-105)
--- NOTE | 2021-04-10 12:56 | PM.CNNEP ---
Assessment and Plan Assessment and plan (1) Acute kidney injury: Code(s): N17.9 - Acute kidney failure, unspecified Status: Acute Assessment and Plan: as noted on admission but has worsened since 04/05/21 suspect multifactorial etiology: prerenal factors (poor oral intake) infection (UTI + COVID-19) relative hypotension check urine electrolytes and CPK follow-up on renal ultrasound given CXR findings, hold aggressive IVF hydration follow trend of labs and UOP (2) Chronic kidney disease, stage 4 (severe): Code(s): N18.4 - Chronic kidney disease, stage 4 (severe) Status: Chronic Assessment and Plan: baseline creatinine (from office records) is ~ 2.4 - 2.7mg/dl for the last few years secondary to her diabetes, hypertension, vascular disease, and age - related disease given outpatient evaluation (3) Hypertension: Code(s): I10 - Essential (primary) hypertension Status: Chronic Assessment and Plan: running on the low side recently despite history holding BP medications hopefully a higher BP may improve #1 (4) Altered mental status: Code(s): R41.82 - Altered mental status, unspecified Status: Acute Assessment and Plan: seems a bit better at this time follow mentation (5) COVID-19: Code(s): U07.1 - COVID-19 Status: Acute Assessment and Plan: noted positivity on this admission not a candidate for remdesivir due to #1 on steroids follow respiratory status (6) Urinary tract infection: Code(s): N39.0 - Urinary tract infection, site not specified Status: Acute Assessment and Plan: urine culture with Group B strep and Enterococcus completed course of antibiotics Will continue to follow. History of Present Illness Reason for Consult Consult date: 04/10/21 Reason for consult: acute renal failure (on chronic kidney disease) Chief Complaint Chief complaint: UTI History of Present Illness Narrative: The patient is a 71-year-old female with a past medical history as outlined below who presented to [facility] Emergency room with complaints of weakness. About a week ago, as part of her treatment for her underlying malignancy, she received a dose of Neupogen. She was feeling reasonably well at that time. However, the next day, she felt very fatigued and has had a progressive decline in her strength and increased weakness. As the symptoms have been progressively getting worse, she finally presented to the emergency room for further evaluation. Workup and evaluation emergency room demonstrated the patient to be hemodynamically stable and routine blood tests were consistent with her baseline values including her creatinine/ renal function. She did have a urinalysis that was highly suggestive of a urinary tract infection and on further questioning she did report mild right middle/ lower abdominal discomfort in association with dysuria. Given these abdominal pain symptoms she subsequent underwent a CT scan of the abdomen pelvis that showed mild hyper right hydronephrosis and hydroureter as well as diffuse bladder wall thickening with urothelial thickening in the distal right ureter. Furthermore, she was positive for COVID-19 as well. Given the constellation of symptoms in in conjunction with her laboratory findings and imaging studies, she was admitted the hospital for further evaluation and therapy. Since her admission, she has been receiving treatment for her urinary tract infection with improvement in these symptoms. Her renal function had been relatively stable up until 03/1821 when her creatinine was 3.2 mg/dL and has subsequently worsened in the last several days. There was concern that perhaps maybe she is was not eating and drinking very well but her chest x-ray shows evidence for possible fluid so aggressive IV fluid resuscitation has not been instituted. Renal consultation
[2021-04-10 15:10] LABS: Hematocrit 27.1 % (37.0-47.0); Hemoglobin 8.7 g/dL (12.0-15.0); Immature Granulocyte Absolute 0.02 K/mm3 (0.00-0.031); Immature Granulocyte Percent A 0.3 % (0-0.5); Lymphocytes Absolute Auto 0.69 K/mm3 (0.9-3.2); Lymphocytes Percent Auto 10.4 % (18.3-44.2); Mean Corpuscular HGB Conc 32.1 g/dl (32-36); Mean Corpuscular Hemoglobin 29.1 pg (26-34); Mean Corpuscular Volume 90.6 fl (80-100); Mean Platelet Volume 10.7 fl (7.4-10.4); Monocytes Absolute Auto 0.1 K/mm3 (0.1-0.6); Neutrophils Absolute Auto 5.8 K/mm3 (1.3-6.7); Neutrophils Percent Auto 87.3 % (45.5-73.1); Platelet Count Result 276 k/mm3 (150-375); Red Blood Count 2.99 M/mm3 (4.2-5.4); Red Cell Distribution Width 16.7 % (11.5-14.5); White Blood Count 6.7 K/mm3 (4.5-10.0)
[2021-04-10 15:20] LABS: Alanine Aminotransferase 74 U/L (4-35); Aspartate Amino Transferase 44 U/L (14-36)
[2021-04-10 15:28] LABS: Creatinine Urine 65.3 mg/dL
[2021-04-10 15:37] LABS: Sodium Urine Random 28 meq/L
[2021-04-10 17:18] LABS: Glucose Point of Care 199 mg/dl (65-105)
[2021-04-10 18:20] LABS: Eosinophil Urine None Seen % (None Seen)
[2021-04-10] MEDS: FAMOTIDINE 20 MG/2 ML VIAL IV PUSH (20:10)
[2021-04-10] MEDS: INSULIN GLARGINE (*BKC) 100 UNITS/ML 20 UNITS SUB-Q (20:10)
[2021-04-10] MEDS: TOPIRAMATE 100 MG TABLET BY MOUTH (20:11)
[2021-04-10 20:36] LABS: Glucose Point of Care 232 mg/dl (65-105)
[2021-04-10] MEDS: SIMVASTATIN 20 MG TABLET 40 MG PO (22:26)
[2021-04-11] VITALS (8 sets, daily range): BP systolic 124–158; BP diastolic 54–82; PULSE 62–72; RESP 16–24; TEMP 37.2–38.2; O2SAT 84–95
[2021-04-11] MEDS: ACETAMINOPHEN 325 MG TABLET 650 MG PO (05:54)
--- NOTE | 2021-04-11 06:13 | PC.NURSE ---
At 0600 rounding patient was found with O2 saturation of 84% wearing 15 Hi Flow NC. I placed 15 L NRB in addition and O2 saturation now at 95%. Also noted that patient has removed oxygen several times throughout the night and had to be reminded to keep oxygen in nose.
[2021-04-11 08:18] LABS: Glucose Point of Care 360 mg/dl (65-105)
[2021-04-11] MEDS: ALBUTEROL SULFATE (*SP) INHALER 2 PUFF INHALATION ×3 (08:49→17:30)
[2021-04-11] MEDS: ASPIRIN 81 MG ENTERIC TABLET PO (08:59)
[2021-04-11] MEDS: VENLAFAXINE HCL XR 75 MG CAP.ER.24H PO (08:59)
[2021-04-11] MEDS: MULTIVITAMINS /C LUTEIN (CENTRUM SILVER) TABLET *BKC 1 TAB PO (08:59)
[2021-04-11] MEDS: FERROUS SULFATE 324 MG TABLET PO (08:59)
[2021-04-11] MEDS: calcitrioL 0.25 MCG CAPSULE PO (09:00)
[2021-04-11] MEDS: CLOPIDOGREL BISULFATE 75 MG TABLET PO (09:00)
[2021-04-11] MEDS: allopurinoL 100 MG TABLET BY MOUTH (09:00)
[2021-04-11] MEDS: busPIRone HCL 5 MG TABLET 15 MG PO ×3 (09:00→16:18)
[2021-04-11] MEDS: FAMOTIDINE 20 MG/2 ML VIAL IV PUSH ×2 (09:00→21:55)
[2021-04-11] MEDS: CHOLECALCIFEROL 400 UNITS TABLET (VIT D) PO (09:00)
[2021-04-11] MEDS: INSULIN ASPART (*BKC) 100 UNITS/ML SUB-Q ×3 (09:04→16:50)
[2021-04-11] MEDS: INSULIN GLARGINE (*BKC) 100 UNITS/ML 21 UNITS SUB-Q (09:04)
--- NOTE | 2021-04-11 09:22 | PCOTNOTE ---
Attempted to see patient this AM at 09:22, patient currently eating breakfast.
[2021-04-11 10:19] LABS: Hematocrit 28.5 % (37.0-47.0); Hemoglobin 8.9 g/dL (12.0-15.0); Immature Granulocyte Absolute 0.03 K/mm3 (0.00-0.031); Immature Granulocyte Percent A 0.6 % (0-0.5); Lymphocytes Absolute Auto 0.55 K/mm3 (0.9-3.2); Lymphocytes Percent Auto 10.2 % (18.3-44.2); Mean Corpuscular HGB Conc 31.2 g/dl (32-36); Mean Corpuscular Hemoglobin 28.7 pg (26-34); Mean Corpuscular Volume 91.9 fl (80-100); Mean Platelet Volume 10.4 fl (7.4-10.4); Monocytes Absolute Auto 0.1 K/mm3 (0.1-0.6); Monocytes Percent Auto 2.4 % (2.6-8.5); Neutrophils Absolute Auto 4.7 K/mm3 (1.3-6.7); Neutrophils Percent Auto 86.8 % (45.5-73.1); Platelet Count Result 260 k/mm3 (150-375); White Blood Count 5.4 K/mm3 (4.5-10.0)
--- NOTE | 2021-04-11 10:31 | WPDNEURCNPN ---
Assessment and Plan Additional Plan 1. Encephalopathy 2. COVID-19 3. UTI treatment as being done Consult date: 04/11/21 HPI: Billie Holcomb is a 71 year old female admitted to the hospital for the complaints of weakness in addition to the ongoing history of stroke with resultant right-sided deficit with dysphagia, ongoing diagnosis of hypertension, [id number] type 2 diabetes mellitus, chronic anemia, chronic kidney disease, and chronic lymphocytic leukemia. She was reportedly complaining of generalized weakness had received the Neupogen injection on Sunday last following day she felt very fatigued with progressive weakness she was found to have findings suggestive of possible UTI CT scan of the abdomen and pelvis revealed mild ride hydronephrosis and hydroureter she was also positive for SARS-CoV-2 id by PCR she was not reportedly vaccinated for COVID and she has not lever left the house , she does have ongoing history of seizure disorder as well, pertinent investigation up until now include CT scan of the head with old lacunar infarcts and microangiopathy and atrophy, normal renal ultrasound, urine culture positive for Enterococcus and group B Streptococcus, receiving aspirin 81 mg daily in addition to the antihypertensive medication and clopidogrel 75 mg daily, has also been seen by voltage tester for the acute kidney failure with worsening since April 05, 2021 attributed to multifactorial etiology such as poor oral intake infection and relative hypotension, recently spiked fever and all the blood cultures were drawn subsequently noted no fever and being maintained on the oxygen Review of Systems Review of Systems: All systems reviewed & are unremarkable except as noted in HPI and below PMFSH Past Medical History Medical History Anemia of chronic disease Cerebrovascular accident (09/2008) 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 Chronic kidney disease, stage 4 (severe) Chronic lymphocytic leukemia Chronic obstructive pulmonary disease, unspecified Essential (primary) hypertension Hyperlipidemia, unspecified Seizure disorder Sleep apnea, unspecified Type 2 diabetes mellitus with diabetic polyneuropathy, without long-term current use of insulin Vitamin D deficiency, unspecified Surgical History Surgical History History of carpal tunnel release History of dilation and curettage History of elbow surgery History of exploratory laparotomy History of knee replacement History of partial hysterectomy Family History Family History Mother Family history of diabetes mellitus in first degree relative Diabetes mellitus Sibling Family history of diabetes mellitus in first degree relative Father Patient's father is Acute myocardial infarction Family history of congestive heart failure Other Family history of lymphoma Social History Social History Social History: Mrs. Holcomb lives at home with her and daughter. Consumes alcohol rarely and in moderation. She smoked up to 2 packs of cigarettes a day for about 20 years. Her and daughter are both smokers. No illicit substance use. She designates her , Jones Holcomb, as her surrogate decision maker. Code status: Full code. Spiritual care concerns: No Meds Home Medications and Allergies Home Medications Medication Instructions Recorded Confirmed Type aspirin 81 mg tablet,delayed 81 mg PO DAILY 07/15/19 03/29/21 History release Adults Multivitamin 1 tablet PO DAILY 02/03/20 03/29/21 History calcitriol 0.25 mcg PO QMWF 02/03/20 03/29/21 History cholecalciferol (vitamin D3) 10 mcg PO DAILY 02/03/20 03/29/21 History [Vitamin D3] ferrous sulfate 325 mg PO DAILY 30 Days #30 tablet 07/07/20 03/29/21 Rx bu
[2021-04-11 10:33] LABS: Alanine Aminotransferase 70 U/L (4-35); Albumin Level 3.3 g/dL (3.5-5.1); Anion Gap 13 mmol/L (8-16); Aspartate Amino Transferase 38 U/L (14-36); Blood Urea Nitrogen 116 mg/dL (7-17); Carbon Dioxide 21 mmol/L (22-30); Chloride 108 mmol/L (98-107); Creatine Kinase 256 U/L (30-135); Estimated CRCL calculation 16 ml/min; Estimated Glomerular Filt Rate 14; Glucose 391 mg/dL (65-110); Phosphorus 6.8 mg/dL (2.5-4.5); Potassium 3.7 mmol/L (3.4-5.0); Sodium 142 mmol/L (137-145)
--- NOTE | 2021-04-11 11:31 | PCSTNOTE ---
Please refer to the Bedside Swallow Evaluation in the EMR. Please note, silent aspiration cannot be ruled out at bedside.
[2021-04-11 11:51] LABS: Glucose Point of Care 428 mg/dl (65-105)
[2021-04-11] MEDS: INSULIN ASPART (*BKC) 100 UNITS/ML 8 UNITS SUB-Q ×2 (12:19→16:49)
--- NOTE | 2021-04-11 14:21 | PCSTNOTE ---
Therapist spoke with Dr. Dyson concerning results and recommendations. Therapist will monitor patient's condition daily with nurse and will request re-evaluation when patient is able to advance.
--- NOTE | 2021-04-11 15:00 | PM.IMPN ---
Progress Note: A&P Assessment and Plan (1) Altered mental status: Code(s): R41.82 - Altered mental status, unspecified Status: Acute Assessment and Plan: Altered mental status. Likely multifactorial. Patient is being treated for acute COVID-19 pneumonia. She has a baseline seizure disorder. Head CT was unremarkable. Neurology was consulted. Appreciate recommendation.. Patient is confused and lethargic p.o. lower intake is very poor. Swallow evaluation was pulse; minced and moist diet recommended with thickened fluids. Provided the patient assistance with feeding. We will order stat swallow evaluation. We started gentle IV fluids. Patient at risk of aspiration pneumonia. We will order stat chest x-ray, ABG and nebulization treatment. Patient has a known diagnosis of cerebrovascular accident, with right residual deficits. However she was able to communicate. Today She is more awake, alert and somewhat communicative. Head CT was unremarkable on during 04/06/2021.. Meanwhile allow permissive hypertension and hold blood pressure medications. As of today the blood pressure has been in the 124/50 4-120 7/57 range. (2) Urinary tract infection: Code(s): N39.0 - Urinary tract infection, site not specified Status: Acute Assessment and Plan: -Patient has been started on ceftriaxone #10. -will stop ceftriaxone. -Urine culture Group B strep, should be susceptible to cephalosporins - final sensitivity report not completed routinely for this organism. -spiked a fever overnight 04/02 so blood cultures were drawn, could also be due to covid infection. -no fevers overnight. -repeat UA still positive for UTI, likely colonization. (3) COVID-19: Code(s): U07.1 - COVID-19 Status: Acute Assessment and Plan: -Patient Currently requiring oxygen 2 L. unfortunately,remdesivir cannot be started due to poor kidney function. Continue dexamethasone. Repeat chest x-ray in morning.Continue supportive care measures. Patient is currently stable and afebrile. Renal function is poor; however if creatinine improve, we may baricitinib in consideration for escalating oxygen requirement; (4) Abnormal computed tomography of abdomen and pelvis: Code(s): R93.5 - Abnormal findings on diagnostic imaging of other abdominal regions, including retroperitoneum Status: Acute Assessment and Plan: CT shows mild right hydro ureteral nephrosis and urothelial thickening in the distal right ureter as well as diffuse bladder wall thickening. Findings may very well be related to inflammation due to underlying infection however radiologist cannot rule out malignancy. No obstructing kidney stones noted on that side. Urology was consulted. This is likely related to inflammation. Repeat KUB as an outpatient. (5) Generalized weakness: Code(s): R53.1 - Weakness Status: Acute Assessment and Plan: Secondary to urinary tract infection. Also positive for COVID. Initiate fall precautions. PT/OT. Concern about sending her home because she is bedbound/wheelchair bound secondary to prior stroke. and daughter both help care for her and transfer her. With her being covid positive, she is unable to care for herself and while in this isolation period I have concerns about exposing her other family members. (6) Anemia of chronic disease: Code(s): D63.8 - Anemia in other chronic diseases classified elsewhere Status: Acute Assessment and Plan: Hemoglobin and hematocrit are stable on review of previous labs. anemia is moderate and well torated with a hemoglobin of 9.2. 2. (7) Essential (primary) hypertension: Code(s): I10 - Essential (primary) hypertension Status: Chronic Assessment and Plan: Blood pressures were reviewed and they are in the 124/54-127/57 range. (8) Type 2 diabetes mellitus with diabetic polyneuropathy, without long-term
--- NOTE | 2021-04-11 15:21 | P.PNNP_ITS ---
Progress Note: A&P Assessment and Plan (1) Acute kidney injury: Code(s): N17.9 - Acute kidney failure, unspecified Status: Acute Assessment and Plan: * as noted on admission but has worsened since 04/05/21 * suspect multifactorial etiology: * prerenal factors (poor oral intake) * infection (UTI + COVID-19) * relative hypotension * urine electrolytes suggest prerenal azotemia * follow-up * renal ultrasound without acute pathology * given CXR findings, holding aggressive IVF hydration * follow trend of labs and UOP (2) Chronic kidney disease, stage 4 (severe): Code(s): N18.4 - Chronic kidney disease, stage 4 (severe) Status: Chronic Assessment and Plan: * baseline creatinine (from office records) is ~ 2.4 - 2.7mg/dl for the last few years * secondary to her diabetes, hypertension, vascular disease, and age - related disease given outpatient evaluation (3) Hypertension: Code(s): I10 - Essential (primary) hypertension Status: Chronic Assessment and Plan: * running on the low side recently despite history * holding BP medications * hopefully a higher BP may improve #1 (4) Altered mental status: Code(s): R41.82 - Altered mental status, unspecified Status: Acute Assessment and Plan: * seems a bit better at this time * follow mentation (5) COVID-19: Code(s): U07.1 - COVID-19 Status: Acute Assessment and Plan: * noted positivity on this admission * not a candidate for remdesivir due to #1 * on steroids * follow respiratory status (6) Urinary tract infection: Code(s): N39.0 - Urinary tract infection, site not specified Status: Acute Assessment and Plan: * urine culture with Group B strep and Enterococcus * completed course of antibiotics Will continue to follow. Subjective Date/time seen: 04/11/21 15:21 Sitting up in bed in no apparent distress; appears to be eating and drinking okay but difficult to fully assess; no acute complaints voiced but her dysarthria makes assessment optimal. Exam Narrative: General: WD/WN female in NAD Heart: normal S1 and S2; no rub Lungs: few wheezes and rhonchi noted Abdomen: soft, nontender, nondistended, positive bowel sounds Extremities: no cyanosis or clubbing; trace edema Skin: warm and dry Objective Data Vital Signs Vital Signs: Vital Signs Temp Pulse Resp BP Pulse Ox 04/11/21 14:00 37.2 C 62 16 124/54 L 93 04/11/21 08:54 91 04/11/21 08:00 63 16 91 04/11/21 06:11 95 04/11/21 05:54 38.2 C H 04/11/21 05:36 38.2 C H 63 16 127/57 L 92 04/10/21 22:00 37.4 C 62 16 122/64 90 04/10/21 20:29 61 90 04/10/21 17:30 37.0 C 67 18 108/59 L 90 Intake/Output Intake/Output: Intake & Output 04/08/21 04/09/21 04/10/21 04/11/21 23:59 23:59 23:59 23:59 Intake Total 718 254 6788 990 Balance 306 139 8881 990 Meds/Results Medications: Active Medications Generic Name Dose Route Start Last Admin Trade Name Travis PRN Reason Stop Dose Admin Acetaminophen 650 mg 04/02/21 16:22 04/11/21 05:54 Acetaminophen 325 Mg Tablet PO 650 mg Q4H PRN Administration
--- NOTE | 2021-04-11 15:21 | PM.PNNEP ---
Progress Note: A&P Assessment and Plan (1) Acute kidney injury: Code(s): N17.9 - Acute kidney failure, unspecified Status: Acute Assessment and Plan: as noted on admission but has worsened since 04/05/21 suspect multifactorial etiology: prerenal factors (poor oral intake) infection (UTI + COVID-19) relative hypotension urine electrolytes suggest prerenal azotemia follow-up renal ultrasound without acute pathology given CXR findings, holding aggressive IVF hydration follow trend of labs and UOP (2) Chronic kidney disease, stage 4 (severe): Code(s): N18.4 - Chronic kidney disease, stage 4 (severe) Status: Chronic Assessment and Plan: baseline creatinine (from office records) is ~ 2.4 - 2.7mg/dl for the last few years secondary to her diabetes, hypertension, vascular disease, and age - related disease given outpatient evaluation (3) Hypertension: Code(s): I10 - Essential (primary) hypertension Status: Chronic Assessment and Plan: running on the low side recently despite history holding BP medications hopefully a higher BP may improve #1 (4) Altered mental status: Code(s): R41.82 - Altered mental status, unspecified Status: Acute Assessment and Plan: seems a bit better at this time follow mentation (5) COVID-19: Code(s): U07.1 - COVID-19 Status: Acute Assessment and Plan: noted positivity on this admission not a candidate for remdesivir due to #1 on steroids follow respiratory status (6) Urinary tract infection: Code(s): N39.0 - Urinary tract infection, site not specified Status: Acute Assessment and Plan: urine culture with Group B strep and Enterococcus completed course of antibiotics Will continue to follow. Subjective Date/time seen: 04/11/21 15:21 Sitting up in bed in no apparent distress; appears to be eating and drinking okay but difficult to fully assess; no acute complaints voiced but her dysarthria makes assessment optimal. Exam Narrative: General: WD/WN female in NAD Heart: normal S1 and S2; no rub Lungs: few wheezes and rhonchi noted Abdomen: soft, nontender, nondistended, positive bowel sounds Extremities: no cyanosis or clubbing; trace edema Skin: warm and dry Objective Data Vital Signs Vital Signs: Vital Signs Temp Pulse Resp BP Pulse Ox 04/11/21 14:00 37.2 C 62 16 124/54 L 93 04/11/21 08:54 91 04/11/21 08:00 63 16 91 04/11/21 06:11 95 04/11/21 05:54 38.2 C H 04/11/21 05:36 38.2 C H 63 16 127/57 L 92 04/10/21 22:00 37.4 C 62 16 122/64 90 04/10/21 20:29 61 90 04/10/21 17:30 37.0 C 67 18 108/59 L 90 Intake/Output Intake/Output: Intake & Output 04/08/21 04/09/21 04/10/21 04/11/21 23:59 23:59 23:59 23:59 Intake Total 054 500 5788 990 Balance 278 899 8793 990 Meds/Results Medications: Active Medications Generic Name Dose Route Start Last Admin Trade Name Freq PRN Reason Stop Dose Admin Acetaminophen 650 mg 04/02/21 16:22 04/11/21 05:54 Acetaminophen 325 Mg Tablet PO 650 mg Q4H PRN Administration Headache Albuterol 2 puff 04/02/21 08:00 04/11/21 11:22 Albuterol Sulfate (*Sp) Inhaler INHALATION 2 puff QIDRT [facility] Administration Allopurinol 100 mg 03/30/21 08:00 04/11/21 09:00 Allopurinol 100 Mg Tablet BY MOUTH 100 mg DAILY@0800 [facility] Administration Aspirin 81 mg 03/30/21 09:00 04/11/21 08:59 Aspirin 81 Mg Enteric Tablet PO 81 mg DAILY EFRAIN Administration Baricitinib 2 mg 04/11/21 11:00 Baricitinib 2 Mg Tablet PO DAILY@11 [facility] Buspirone HCl 15 mg 03/30/21 09:00 04/11/21 12:35 Buspirone Hcl 5 Mg Tablet PO 15 mg TID [facility] Administration Calcitriol 0.25 mcg 03/30/21 09:00 04/11/21 09:00 Calcitriol 0.25 Mcg Capsule PO 0.25 mcg MoWeFr@0900 [facility] Administration Clopidogrel Bisulfa
--- NOTE | 2021-04-11 15:30 | PCNFU ---
Addendum entered by Kelli Lauren RD, LDN 04/11/21 15:37: RDN placed orders for minced and moist, L5 diet and mildly thick, L2 thicken liquids as recommended by speech. Original Note: Nutrition Follow-Up Complete: Inadequate oral intake related to UTI and covid as evidenced by reported average intake of 52% Goal: Pt to meet nutritional needs Pt is slowly progressing towards goal Pt current nutrition is carb consistent diet and dietary supplement Last recorded weight is 98.3 kg. Bowel Motility: LBM 04/05, No new BM reported Labs Reviewed: hgb 8.9, hct 28.5, alb 3.3, Cl 108, CO2 21, GFR 14, BUN 116, Cr 3.2, Glu 391, PO4 6.8, AST 38, ALT 70, Cr Kinase 256 Meds Noted: zyloprim, buspar, rocaltrol, plavix, decadron, pepcid, ferrous sulfate, novolog, lantus, multivitamin, effexor, vitamin D Skin: left index finger wound Additional Notes: Unable to visit with pt due to follow covid precautions. Current nutrition is carb consistent diet and dietary supplement of Glucerna Shake BID providing an additional 220kcal and 10g of protein to increase caloric intake. Reported intake is 5%, 0% x3, and 10%. Spoke to nursing who confirms poor po intake and is unsure if pt is drinking dietary supplement. Nursing agrees to continue encouraging intake of carb consistent diet and dietary supplement. Recommend increasing dietary supplement from BID to TID if intake remains under 50%. Agree with diet order at this time. Will continue to follow. Will monitor labs, medicaiton, wt, and reported intake every 3 days.
[2021-04-11 16:24] LABS: Glucose Point of Care 335 mg/dl (65-105)
[2021-04-11] MEDS: SIMVASTATIN 20 MG TABLET 40 MG PO (21:55)
[2021-04-11] MEDS: INSULIN GLARGINE (*BKC) 100 UNITS/ML 25 UNITS SUB-Q (21:55)
[2021-04-11] MEDS: TOPIRAMATE 100 MG TABLET BY MOUTH (21:55)
[2021-04-12] VITALS (7 sets, daily range): BP systolic 148–180; BP diastolic 82–90; PULSE 81–92; RESP 16–20; TEMP 37.1–38.1; O2SAT 91–95
[2021-04-12 00:46] LABS: Glucose Point of Care 322 mg/dl (65-105)
[2021-04-12] MEDS: ACETAMINOPHEN 325 MG TABLET 650 MG PO (04:23)
[2021-04-12 07:49] LABS: Hemoglobin 9.9 g/dL (12.0-15.0); Immature Granulocyte Absolute 0.05 K/mm3 (0.00-0.031); Immature Granulocyte Percent A 0.7 % (0-0.5); Lymphocytes Absolute Auto 0.73 K/mm3 (0.9-3.2); Lymphocytes Percent Auto 10.1 % (18.3-44.2); Mean Corpuscular HGB Conc 31.9 g/dl (32-36); Mean Corpuscular Hemoglobin 28.8 pg (26-34); Mean Corpuscular Volume 90.1 fl (80-100); Mean Platelet Volume 10.8 fl (7.4-10.4); Monocytes Absolute Auto 0.2 K/mm3 (0.1-0.6); Monocytes Percent Auto 3.2 % (2.6-8.5); Neutrophils Absolute Auto 6.3 K/mm3 (1.3-6.7); Platelet Count Result 335 k/mm3 (150-375); Red Blood Count 3.44 M/mm3 (4.2-5.4); Red Cell Distribution Width 16.9 % (11.5-14.5); White Blood Count 7.3 K/mm3 (4.5-10.0)
[2021-04-12 08:01] LABS: Alanine Aminotransferase 66 U/L (4-35); Albumin Level 3.5 g/dL (3.5-5.1); Anion Gap 13 mmol/L (8-16); Aspartate Amino Transferase 32 U/L (14-36); Blood Urea Nitrogen 103 mg/dL (7-17); Calcium 9.5 mg/dL (8.4-10.2); Carbon Dioxide 24 mmol/L (22-30); Chloride 110 mmol/L (98-107); Estimated CRCL calculation 17 ml/min; Estimated Glomerular Filt Rate 15; Glucose 279 mg/dL (65-110); Phosphorus 4.8 mg/dL (2.5-4.5); Potassium 3.5 mmol/L (3.4-5.0); Sodium 147 mmol/L (137-145)
[2021-04-12 08:03] LABS: Glucose Point of Care 262 mg/dl (65-105)
[2021-04-12] MEDS: FAMOTIDINE 20 MG/2 ML VIAL IV PUSH ×2 (08:15→21:04)
[2021-04-12] MEDS: ASPIRIN 81 MG ENTERIC TABLET PO (08:15)
[2021-04-12] MEDS: CLOPIDOGREL BISULFATE 75 MG TABLET PO (08:16)
[2021-04-12] MEDS: VENLAFAXINE HCL XR 75 MG CAP.ER.24H PO (08:16)
[2021-04-12] MEDS: MULTIVITAMINS /C LUTEIN (CENTRUM SILVER) TABLET *BKC 1 TAB PO (08:16)
[2021-04-12] MEDS: FERROUS SULFATE 324 MG TABLET PO (08:16)
[2021-04-12] MEDS: busPIRone HCL 5 MG TABLET 15 MG PO ×3 (08:16→16:39)
[2021-04-12] MEDS: allopurinoL 100 MG TABLET BY MOUTH (08:16)
[2021-04-12] MEDS: CHOLECALCIFEROL 400 UNITS TABLET (VIT D) PO (08:16)
[2021-04-12] MEDS: INSULIN ASPART (*BKC) 100 UNITS/ML 8 UNITS SUB-Q ×2 (08:17→11:42)
[2021-04-12] MEDS: INSULIN GLARGINE (*BKC) 100 UNITS/ML 25 UNITS SUB-Q (08:17)
[2021-04-12] MEDS: INSULIN ASPART (*BKC) 100 UNITS/ML SUB-Q ×2 (08:17→11:42)
--- NOTE | 2021-04-12 09:07 | PM.IMPN ---
Progress Note: A&P Assessment and Plan (1) Altered mental status: Code(s): R41.82 - Altered mental status, unspecified Status: Acute Assessment and Plan: Altered mental status. Likely multifactorial. Patient is being treated for acute COVID-19 pneumonia. She has a baseline seizure disorder. Head CT was unremarkable. Patient is confused and lethargic p.o. lower intake is very poor. Swallow evaluation was pulse; minced and moist diet recommended with thickened fluids. Provided the patient assistance with feeding. We will order stat swallow evaluation. We started gentle IV fluids. Patient has a known diagnosis of cerebrovascular accident, with right residual deficits. However she was able to communicate. Today She is more awake, alert and somewhat communicative. Head CT was unremarkable on during 04/06/2021.. Meanwhile allow permissive hypertension and hold blood pressure medications. Patient is febrile with a maximum temperature of 100.8? F. blood pressure remained stable in the range of 148/80 3-176/82. Chest x-ray shows diffuse lung disease with improvement in the right mid lung zone, consistent with COVID-19 pneumonia. Unfortunately due to worsening kidney function, we are unable to leave remdesivir. Due to penicillin allergy, patient has been started on Levaquin. (2) Urinary tract infection: Code(s): N39.0 - Urinary tract infection, site not specified Status: Acute Assessment and Plan: Urine shows pyuria. Urine culture sent. Patient started on Levaquin for worsening pneumonia. (3) COVID-19: Code(s): U07.1 - COVID-19 Status: Acute Assessment and Plan: -Patient Currently requiring oxygen 2 L. unfortunately,remdesivir cannot be started due to poor kidney function. Continue dexamethasone. Repeat chest x-ray in morning.Continue supportive care measures. Patient is currently stable and afebrile. Renal function is poor; however if creatinine improve, we may baricitinib in consideration for escalating oxygen requirement; (4) Abnormal computed tomography of abdomen and pelvis: Code(s): R93.5 - Abnormal findings on diagnostic imaging of other abdominal regions, including retroperitoneum Status: Acute Assessment and Plan: CT shows mild right hydro ureteral nephrosis and urothelial thickening in the distal right ureter as well as diffuse bladder wall thickening. Findings may very well be related to inflammation due to underlying infection however radiologist cannot rule out malignancy. No obstructing kidney stones noted on that side. Urology was consulted. This is likely related to inflammation. Repeat KUB as an outpatient. (5) Generalized weakness: Code(s): R53.1 - Weakness Status: Acute Assessment and Plan: Secondary to urinary tract infection. Also positive for COVID. Initiate fall precautions. PT/OT. Concern about sending her home because she is bedbound/wheelchair bound secondary to prior stroke. and daughter both help care for her and transfer her. With her being covid positive, she is unable to care for herself and while in this isolation period I have concerns about exposing her other family members. (6) Anemia of chronic disease: Code(s): D63.8 - Anemia in other chronic diseases classified elsewhere Status: Acute Assessment and Plan: Hemoglobin and hematocrit are stable on review of previous labs. anemia is moderate and well torated with a hemoglobin of 9.2. 2. (7) Essential (primary) hypertension: Code(s): I10 - Essential (primary) hypertension Status: Chronic Assessment and Plan: Blood pressures were reviewed and they are in the 124/54-127/57 range. (8) Type 2 diabetes mellitus with diabetic polyneuropathy, without long-term current use of insulin: Code(s): E11.42 - Type 2 diabetes mellitus with diabetic polyneuropathy Status: Chronic A
[2021-04-12] MEDS: ALBUTEROL SULFATE (*SP) INHALER 2 PUFF INHALATION ×3 (09:30→22:15)
--- NOTE | 2021-04-12 09:51 | P.PNNP_ITS ---
Progress Note: A&P Assessment and Plan (1) Acute kidney injury: Code(s): N17.9 - Acute kidney failure, unspecified Status: Acute Assessment and Plan: * as noted on admission but has worsened since 04/05/21 * a bit better by AM labs today (04/12/21) -- making urine but not fully documented * possible peak/plateau creatinine of 3.6mg/dl(?) * suspect multifactorial etiology: * prerenal factors (poor oral intake) * infection (UTI + COVID-19) * relative hypotension * urine electrolytes suggest prerenal azotemia * renal ultrasound without acute pathology * given CXR findings, holding aggressive IVF hydration * follow trend of labs and UOP (2) Chronic kidney disease, stage 4 (severe): Code(s): N18.4 - Chronic kidney disease, stage 4 (severe) Status: Chronic Assessment and Plan: * baseline creatinine (from office records) is ~ 2.4 - 2.7mg/dl for the last few years * secondary to her diabetes, hypertension, vascular disease, and age - related disease given outpatient evaluation (3) Hypertension: Code(s): I10 - Essential (primary) hypertension Status: Chronic Assessment and Plan: * was running on the low side recently but better at this time * holding BP medications at this time * hopefully a higher BP may improve #1 (4) Altered mental status: Code(s): R41.82 - Altered mental status, unspecified Status: Acute Assessment and Plan: * appear to have deteriorated again * presumably related to infection/fevers * follow mentation (5) COVID-19: Code(s): U07.1 - COVID-19 Status: Acute Assessment and Plan: * noted positivity on this admission * not a candidate for remdesivir due to #1 * on steroids * follow respiratory status (6) Urinary tract infection: Code(s): N39.0 - Urinary tract infection, site not specified Status: Acute Assessment and Plan: * urine culture with Group B strep and Enterococcus * completed course of antibiotics Will continue to follow. Subjective Date/time seen: 04/12/21 09:52 Febrile overnight but better hemodynamics noted in the last 24 hours; however, her oral intake remains poor and she does not appear to be as communicative as she was before. Exam Narrative: General: WD/WN female in NAD but lethargic Heart: normal S1 and S2; no rub Lungs: few wheezes and rhonchi noted Abdomen: soft, nontender, nondistended, positive bowel sounds Extremities: no cyanosis or clubbing; trace edema Skin: warm and intact Objective Data Vital Signs Vital Signs: Vital Signs Temp Pulse Resp BP Pulse Ox 04/12/21 09:34 92 04/12/21 08:00 92 16 92 04/12/21 05:24 38.1 C H 92 16 176/82 H 91 04/12/21 04:23 38.1 C H 04/11/21 21:45 37.6 C H 69 16 158/82 H 93 04/11/21 17:30 72 24 H 04/11/21 14:00 37.2 C 62 16 124/54 L 93 Intake/Output Intake/Output: Intake & Output 04/09/21 04/10/21 04/11/21 04/12/21 23:59 23:59 23:59 23:59 Intake Total 730 1340 1090 360 Balance 730 1340 1090 360 Meds/Results Medications: Active Medications Generic Name Dose Route Start Last Admin Trade Name Freq PRN Reason Stop Dose Admin Acetaminophen 650 mg 03/19
--- NOTE | 2021-04-12 09:51 | PM.PNNEP ---
Progress Note: A&P Assessment and Plan (1) Acute kidney injury: Code(s): N17.9 - Acute kidney failure, unspecified Status: Acute Assessment and Plan: as noted on admission but has worsened since 04/05/21 a bit better by AM labs today (04/12/21) -- making urine but not fully documented possible peak/plateau creatinine of 3.6mg/dl(?) suspect multifactorial etiology: prerenal factors (poor oral intake) infection (UTI + COVID-19) relative hypotension urine electrolytes suggest prerenal azotemia renal ultrasound without acute pathology given CXR findings, holding aggressive IVF hydration follow trend of labs and UOP (2) Chronic kidney disease, stage 4 (severe): Code(s): N18.4 - Chronic kidney disease, stage 4 (severe) Status: Chronic Assessment and Plan: baseline creatinine (from office records) is ~ 2.4 - 2.7mg/dl for the last few years secondary to her diabetes, hypertension, vascular disease, and age - related disease given outpatient evaluation (3) Hypertension: Code(s): I10 - Essential (primary) hypertension Status: Chronic Assessment and Plan: was running on the low side recently but better at this time holding BP medications at this time hopefully a higher BP may improve #1 (4) Altered mental status: Code(s): R41.82 - Altered mental status, unspecified Status: Acute Assessment and Plan: appear to have deteriorated again presumably related to infection/fevers follow mentation (5) COVID-19: Code(s): U07.1 - COVID-19 Status: Acute Assessment and Plan: noted positivity on this admission not a candidate for remdesivir due to #1 on steroids follow respiratory status (6) Urinary tract infection: Code(s): N39.0 - Urinary tract infection, site not specified Status: Acute Assessment and Plan: urine culture with Group B strep and Enterococcus completed course of antibiotics Will continue to follow. Subjective Date/time seen: 04/12/21 09:52 Febrile overnight but better hemodynamics noted in the last 24 hours; however, her oral intake remains poor and she does not appear to be as communicative as she was before. Exam Narrative: General: WD/WN female in NAD but lethargic Heart: normal S1 and S2; no rub Lungs: few wheezes and rhonchi noted Abdomen: soft, nontender, nondistended, positive bowel sounds Extremities: no cyanosis or clubbing; trace edema Skin: warm and intact Objective Data Vital Signs Vital Signs: Vital Signs Temp Pulse Resp BP Pulse Ox 04/12/21 09:34 92 04/12/21 08:00 92 16 92 04/12/21 05:24 38.1 C H 92 16 176/82 H 91 04/12/21 04:23 38.1 C H 04/11/21 21:45 37.6 C H 69 16 158/82 H 93 04/11/21 17:30 72 24 H 04/11/21 14:00 37.2 C 62 16 124/54 L 93 Intake/Output Intake/Output: Intake & Output 04/09/21 04/10/21 04/11/21 04/12/21 23:59 23:59 23:59 23:59 Intake Total 730 1340 1090 360 Balance 730 1340 1090 360 Meds/Results Medications: Active Medications Generic Name Dose Route Start Last Admin Trade Name Travis PRN Reason Stop Dose Admin Acetaminophen 650 mg 04/02/21 16:22 04/12/21 04:23 Acetaminophen 325 Mg Tablet PO 650 mg Q4H PRN Administration Headache Albuterol 2 puff 04/02/21 08:00 04/12/21 09:30 Albuterol Sulfate (*Sp) Inhaler INHALATION 2 puff QIDRT [facility] Administration Allopurinol 100 mg 03/30/21 08:00 04/12/21 08:16 Allopurinol 100 Mg Tablet BY MOUTH 100 mg DAILY@0800 [facility] Administration Aspirin 81 mg 03/30/21 09:00 04/12/21 08:15 Aspirin 81 Mg Enteric Tablet PO 81 mg DAILY [facility] Administration Baricitinib 2 mg 04/11/21 11:00 Baricitinib 2 Mg Tablet PO DAILY@11 [facility] Buspirone HCl 15 mg 03/30/21 09:00 04/12/21 08:16 Buspirone Hcl 5 Mg Tablet PO 15 mg TID [facility] Administration Calcitriol 0.25 mcg 01
[2021-04-12] MEDS: BARICITINIB 1 MG TABLET PO (11:42)
[2021-04-12 11:46] LABS: Glucose Point of Care 205 mg/dl (65-105)
[2021-04-12 16:26] LABS: Add Urine Microscopic? YES; Appearance Urine Clear (Clear); Bacteria Urine Trace /hpf; Bilirubin Urine Negative (Negative); Blood Urine 3+ (Negative); Budding Yeast Urine Present /hpf; Color Urine Yellow (Yellow); Glucose Urine UA Negative (Negative); Ketones Urine Negative (Negative); Leukocyte Esterase Ur Trace LEU/UL (NEGATIVE); Mucus Urine Rare /lpf; Nitrate Urine Negative (Negative); Protein Urine 1+ mg/dL (Negative); RBC Urine >75 /hpf (0-2); Specific Grav Ur 1.015 (1.001-1.035); Squamous Epithelial Cell Urine Rare /hpf (Few); Urobilinogen Urine Negative mg/dL (<2.0); WBC Urine 21-30 /hpf (0-3)
--- NOTE | 2021-04-12 16:49 | PC.NURSE ---
bs 94 all insulin ssi and scheduled held MD Kiel stevenson.
[2021-04-12 16:54] LABS: Glucose Point of Care 97 mg/dl (65-105)
--- NOTE | 2021-04-12 18:06 | PC.NURSE ---
Reported MD Dyson pt continues to decline poor eating habits this shift, insulin held at dinner time bs 94, UA collected greenish/brown tint to yellow, pt more drowsy today. Started on Levaquin 500 IV per MD Dyson, awaiting pharmacy to verify. updated.
[2021-04-12] MEDS: SIMVASTATIN 20 MG TABLET 40 MG PO (21:02)
[2021-04-12] MEDS: TOPIRAMATE 100 MG TABLET BY MOUTH (21:05)
[2021-04-12 23:05] LABS: Glucose Point of Care 112 mg/dl (65-105)
[2021-04-13 06:00] VITALS: BP 149/92; PULSE 80; RESP 20; TEMP 36.4; O2SAT 90
[2021-04-13 08:00] VITALS: O2SAT 95
[2021-04-13 08:06] LABS: Basophils Percent Auto 0.3 % (0.2-1.2); Eosinophils Percent Auto 0.3 % (0-4.4); Hematocrit 39.2 % (37.0-47.0); Hemoglobin 11.6 g/dL (12.0-15.0); Immature Granulocyte Absolute 0.03 K/mm3 (0.00-0.031); Immature Granulocyte Percent A 0.4 % (0-0.5); Lymphocytes Absolute Auto 0.97 K/mm3 (0.9-3.2); Lymphocytes Percent Auto 12.5 % (18.3-44.2); Mean Corpuscular HGB Conc 29.6 g/dl (32-36); Mean Corpuscular Hemoglobin 29.1 pg (26-34); Mean Corpuscular Volume 98.5 fl (80-100); Mean Platelet Volume 10.7 fl (7.4-10.4); Monocytes Absolute Auto 0.2 K/mm3 (0.1-0.6); Neutrophils Absolute Auto 6.5 K/mm3 (1.3-6.7); Neutrophils Percent Auto 83.5 % (45.5-73.1); Platelet Count Result 322 k/mm3 (150-375); Red Blood Count 3.98 M/mm3 (4.2-5.4); Red Cell Distribution Width 17.4 % (11.5-14.5); White Blood Count 7.8 K/mm3 (4.5-10.0)
[2021-04-13 08:24] LABS: Alanine Aminotransferase 48 U/L (4-35); Albumin Level 3.6 g/dL (3.5-5.1); Anion Gap 15 mmol/L (8-16); Aspartate Amino Transferase 36 U/L (14-36); Blood Urea Nitrogen 106 mg/dL (7-17); Calcium 9.9 mg/dL (8.4-10.2); Carbon Dioxide 21 mmol/L (22-30); Chloride 117 mmol/L (98-107); Estimated CRCL calculation 17 ml/min; Estimated Glomerular Filt Rate 15; Glucose 213 mg/dL (65-110); Phosphorus 5.1 mg/dL (2.5-4.5); Potassium 3.9 mmol/L (3.4-5.0); Sodium 153 mmol/L (137-145)
[2021-04-13 08:32] LABS: Glucose Point of Care 194 mg/dl (65-105)
[2021-04-13] MEDS: ALBUTEROL SULFATE (*SP) INHALER 2 PUFF INHALATION ×3 (08:39→20:02)
[2021-04-13 09:34] LABS: Ovalocytes 1+ (NORMAL); Platelet Estimate Adequate (Adequate); Poikilocytosis 1+ (NORMAL); Tear Drop Cells 1+ (NORMAL)
[2021-04-13] MEDS: VENLAFAXINE HCL XR 75 MG CAP.ER.24H PO (09:41)
[2021-04-13] MEDS: busPIRone HCL 5 MG TABLET 15 MG PO ×2 (09:41→14:14)
[2021-04-13] MEDS: CLOPIDOGREL BISULFATE 75 MG TABLET PO (09:42)
[2021-04-13] MEDS: calcitrioL 0.25 MCG CAPSULE PO (09:42)
[2021-04-13] MEDS: ASPIRIN 81 MG ENTERIC TABLET PO (09:42)
[2021-04-13] MEDS: allopurinoL 100 MG TABLET BY MOUTH (09:42)
[2021-04-13] MEDS: BARICITINIB 1 MG TABLET PO (09:42)
[2021-04-13] MEDS: FERROUS SULFATE 324 MG TABLET PO (09:42)
[2021-04-13] MEDS: MULTIVITAMINS /C LUTEIN (CENTRUM SILVER) TABLET *BKC 1 TAB PO (09:42)
[2021-04-13] MEDS: FAMOTIDINE 20 MG/2 ML VIAL IV PUSH ×2 (09:43→21:40)
[2021-04-13] MEDS: CHOLECALCIFEROL 400 UNITS TABLET (VIT D) PO (09:43)
[2021-04-13] MEDS: INSULIN GLARGINE (*BKC) 100 UNITS/ML 25 UNITS SUB-Q ×2 (09:45→09:47)
[2021-04-13] MEDS: INSULIN ASPART (*BKC) 100 UNITS/ML 8 UNITS SUB-Q ×2 (09:46→18:08)
[2021-04-13 11:39] LABS: Glucose Point of Care 231 mg/dl (65-105)
--- NOTE | 2021-04-13 12:04 | PM.IMPN ---
Progress Note: A&P Assessment and Plan (1) Acute respiratory failure: Code(s): J96.00 - Acute respiratory failure, unspecified whether with hypoxia or hypercapnia Status: Acute Assessment and Plan: MONSALVE clearly secondary to acute COVID-19 pneumonia. Currently on 15 L O2 non-rebreather. Cannot receive remdesivir due to poor kidney function. was contacted and updated about current clinical condition. (2) Altered mental status: Code(s): R41.82 - Altered mental status, unspecified Status: Acute Assessment and Plan: Altered mental status. Likely multifactorial. Patient is being treated for acute COVID-19 pneumonia. She has a baseline seizure disorder. Head CT was unremarkable. Patient is confused and lethargic p.o. lower intake is very poor. Swallow evaluation was pulse; minced and moist diet recommended with thickened fluids. Provided the patient assistance with feeding. We will order stat swallow evaluation. We started gentle IV fluids. Patient has a known diagnosis of cerebrovascular accident, with right residual deficits. However she was able to communicate. Today She is more awake, alert and somewhat communicative. Head CT was unremarkable on during 04/06/2021.. Meanwhile allow permissive hypertension and hold blood pressure medications. Patient is febrile with a maximum temperature of 100.8? F. blood pressure remained stable in the range of 148/80 3-176/82. Chest x-ray shows diffuse lung disease with improvement in the right mid lung zone, consistent with COVID-19 pneumonia. Unfortunately due to worsening kidney function, we are unable to leave remdesivir. Due to penicillin allergy, patient has been started on Levaquin. Continue IV Levaquin. (3) Urinary tract infection: Code(s): N39.0 - Urinary tract infection, site not specified Status: Acute Assessment and Plan: Urine shows pyuria. Urine culture sent. Patient started on Levaquin for worsening pneumonia. (4) COVID-19: Code(s): U07.1 - COVID-19 Status: Acute Assessment and Plan: -Patient Currently requiring oxygen 15 L. unfortunately,remdesivir cannot be started due to poor kidney function. Continue dexamethasone. Repeat chest x-ray in morning.Continue supportive care measures. Patient is currently stable and afebrile. Renal function is poor; however if creatinine improve, we may baricitinib in consideration for escalating oxygen requirement; (5) Abnormal computed tomography of abdomen and pelvis: Code(s): R93.5 - Abnormal findings on diagnostic imaging of other abdominal regions, including retroperitoneum Status: Acute Assessment and Plan: CT shows mild right hydro ureteral nephrosis and urothelial thickening in the distal right ureter as well as diffuse bladder wall thickening. Findings may very well be related to inflammation due to underlying infection however radiologist cannot rule out malignancy. No obstructing kidney stones noted on that side. Urology was consulted. This is likely related to inflammation. Repeat KUB as an outpatient. (6) Generalized weakness: Code(s): R53.1 - Weakness Status: Acute Assessment and Plan: Secondary to urinary tract infection. Also positive for COVID. Initiate fall precautions. PT/OT. Concern about sending her home because she is bedbound/wheelchair bound secondary to prior stroke. and daughter both help care for her and transfer her. With her being covid positive, she is unable to care for herself and while in this isolation period I have concerns about exposing her other family members. (7) Anemia of chronic disease: Code(s): D63.8 - Anemia in other chronic diseases classified elsewhere Status: Acute Assessment and Plan: Hemoglobin and hematocrit are stable on review of previous labs. anemia is moderate and well torated with a hemoglobin of 9.2. 2. (8) Essential
[2021-04-13 14:00] VITALS: BP 146/83; PULSE 102; RESP 21; TEMP 36.8; O2SAT 94
--- NOTE | 2021-04-13 14:10 | PM.PNNEP ---
Progress Note: A&P Assessment and Plan (1) Acute kidney injury: Code(s): N17.9 - Acute kidney failure, unspecified Status: Acute Assessment and Plan: as noted on admission but has worsened since 04/05/21 a bit better by AM labs today (04/12/21) -- making urine but not fully documented possible peak/plateau creatinine of 3.6mg/dl(?) suspect multifactorial etiology: prerenal factors (poor oral intake) infection (UTI + COVID-19) relative hypotension urine electrolytes suggest prerenal azotemia renal ultrasound without acute pathology given CXR findings, holding aggressive IVF hydration follow trend of labs and UOP (2) Chronic kidney disease, stage 4 (severe): Code(s): N18.4 - Chronic kidney disease, stage 4 (severe) Status: Chronic Assessment and Plan: baseline creatinine (from office records) is ~ 2.4 - 2.7mg/dl for the last few years secondary to her diabetes, hypertension, vascular disease, and age - related disease given outpatient evaluation (3) Hypernatremia: Code(s): E87.0 - Hyperosmolality and hypernatremia Status: Acute Assessment and Plan: as noted by trend of AM labs probably due to a free water deficit due to inadequate oral fluid intake encourage free water intake if possible however, if unsafe to do so given AMS, consider doboff tube placement (4) Hypertension: Code(s): I10 - Essential (primary) hypertension Status: Chronic Assessment and Plan: was running on the low side recently but better at this time holding BP medications at this time hopefully a higher BP may improve #1 (5) Altered mental status: Code(s): R41.82 - Altered mental status, unspecified Status: Acute Assessment and Plan: appear to have deteriorated again presumably related to infection/fevers and possibly hypernatremia follow mentation (6) COVID-19: Code(s): U07.1 - COVID-19 Status: Acute Assessment and Plan: noted positivity on this admission not a candidate for remdesivir due to #1 on steroids follow respiratory status (7) Urinary tract infection: Code(s): N39.0 - Urinary tract infection, site not specified Status: Acute Assessment and Plan: urine culture with Group B strep and Enterococcus completed course of antibiotics Will continue to follow. Subjective Date/time seen: 04/13/21 14:10 Oxygen requirements continues to increase in association with declining mental status; oral intake suboptimal due to ongoing decline in mental status; sodium rising as noted by AM labs. Exam Narrative: General: WD/WN female in NAD but lethargic Heart: normal S1 and S2; no rub Lungs: few wheezes and rhonchi noted Abdomen: soft, nontender, nondistended, positive bowel sounds Extremities: no cyanosis or clubbing; trace edema Skin: warm and intact Objective Data Vital Signs Vital Signs: Vital Signs Temp Pulse Resp BP Pulse Ox 04/13/21 14:00 36.8 C 102 H 21 H 146/83 H 94 04/13/21 08:00 95 04/13/21 06:00 36.4 C L 80 20 149/92 H 90 04/12/21 22:23 93 04/12/21 22:00 37.3 C 81 20 180/90 H 95 Intake/Output Intake/Output: Intake & Output 04/10/21 04/11/21 04/12/21 04/13/21 23:59 23:59 23:59 23:59 Intake Total 1340 2090 360 320 Balance 1340 2090 360 320 Meds/Results Medications: Active Medications Generic Name Dose Route Start Last Admin Trade Name Freq PRN Reason Stop Dose Admin Acetaminophen 650 mg 04/02/21 16:22 04/12/21 04:23 Acetaminophen 325 Mg Tablet PO 650 mg Q4H PRN Administration Headache Albuterol 2 puff 04/02/21 08:00 04/13/21 14:29 Albuterol Sulfate (*Sp) Inhaler INHALATION Not Given [facility] Allopurinol 100 mg 03/30/21 08:00 04/13/21 09:42 Allopurinol 100 Mg Tablet BY MOUTH 100 mg DAILY@0800 [facility] Administration Aspirin 81 mg 03/30/21 09:00 04/13/21
--- NOTE | 2021-04-13 14:10 | P.PNNP_ITS ---
Progress Note: A&P Assessment and Plan (1) Acute kidney injury: Code(s): N17.9 - Acute kidney failure, unspecified Status: Acute Assessment and Plan: * as noted on admission but has worsened since 04/05/21 * a bit better by AM labs today (04/12/21) -- making urine but not fully documented * possible peak/plateau creatinine of 3.6mg/dl(?) * suspect multifactorial etiology: * prerenal factors (poor oral intake) * infection (UTI + COVID-19) * relative hypotension * urine electrolytes suggest prerenal azotemia * renal ultrasound without acute pathology * given CXR findings, holding aggressive IVF hydration * follow trend of labs and UOP (2) Chronic kidney disease, stage 4 (severe): Code(s): N18.4 - Chronic kidney disease, stage 4 (severe) Status: Chronic Assessment and Plan: * baseline creatinine (from office records) is ~ 2.4 - 2.7mg/dl for the last few years * secondary to her diabetes, hypertension, vascular disease, and age - related disease given outpatient evaluation (3) Hypernatremia: Code(s): E87.0 - Hyperosmolality and hypernatremia Status: Acute Assessment and Plan: * as noted by trend of AM labs * probably due to a free water deficit due to inadequate oral fluid intake * encourage free water intake if possible * however, if unsafe to do so given AMS, consider doboff tube placement (4) Hypertension: Code(s): I10 - Essential (primary) hypertension Status: Chronic Assessment and Plan: * was running on the low side recently but better at this time * holding BP medications at this time * hopefully a higher BP may improve #1 (5) Altered mental status: Code(s): R41.82 - Altered mental status, unspecified Status: Acute Assessment and Plan: * appear to have deteriorated again * presumably related to infection/fevers and possibly hypernatremia * follow mentation (6) COVID-19: Code(s): U07.1 - COVID-19 Status: Acute Assessment and Plan: * noted positivity on this admission * not a candidate for remdesivir due to #1 * on steroids * follow respiratory status (7) Urinary tract infection: Code(s): N39.0 - Urinary tract infection, site not specified Status: Acute Assessment and Plan: * urine culture with Group B strep and Enterococcus * completed course of antibiotics Will continue to follow. Subjective Date/time seen: 04/13/21 14:10 Oxygen requirements continues to increase in association with declining mental status; oral intake suboptimal due to ongoing decline in mental status; sodium rising as noted by AM labs. Exam Narrative: General: WD/WN female in NAD but lethargic Heart: normal S1 and S2; no rub Lungs: few wheezes and rhonchi noted Abdomen: soft, nontender, nondistended, positive bowel sounds Extremities: no cyanosis or clubbing; trace edema Skin: warm and intact Objective Data Vital Signs Vital Signs: Vital Signs Temp Pulse Resp BP Pulse Ox 04/13/21 14:00 36.8 C 102 H 21 H 146/83 H 94 04/13/21 08:00 95 04/13/21 06:00 36.4 C L 80 20 149/92 H 90 04/12/21 22:23 93 04/12/21 22:00 37.3 C 81 20 180/90 H 95 Intake/Output Intake/Output: Intake & Output 04/10/21 04/11/21 04/12/21 04/13/21 23:59
[2021-04-13] MEDS: SODIUM CHLORIDE 0.9% IV 1,000 ML 30 ML IV CONT (14:16)
[2021-04-13 16:07] LABS: Glucose Point of Care 254 mg/dl (65-105)
[2021-04-13] MEDS: INSULIN ASPART (*BKC) 100 UNITS/ML SUB-Q (18:08)
--- NOTE | 2021-04-13 18:53 | PC.NURSE ---
Attempted NG tube placement a few times. Patient is unable to follow commands, etc. NG tube unsuccessful. Spoke to Dr. Dyson about this. She stated to chart that it was unsuccessful and that it might need to be placed under radiology tomorrow. She also stated that would like to visit patient to determine next step in her care. I will notify the warehouse incentive selector of this.
[2021-04-13 20:30] VITALS: PULSE 98; RESP 17; O2SAT 94
[2021-04-13 22:00] VITALS: BP 144/85; PULSE 106; RESP 17; TEMP 37.4; O2SAT 98
[2021-04-13 22:22] VITALS: PULSE 98; O2SAT 94
[2021-04-13 23:51] LABS: Glucose Point of Care 193 mg/dl (65-105)
[2021-04-14] VITALS (9 sets, daily range): BP systolic 106–124; BP diastolic 48–86; PULSE 72–122; RESP 15–36; TEMP 36.4–37.1; O2SAT 87–98
--- NOTE | 2021-04-14 02:41 | PCRCNOTE ---
Window of time for administration has passed. See next scheduled administration.
[2021-04-14 08:05] LABS: Glucose Point of Care 191 mg/dl (65-105)
[2021-04-14] MEDS: FAMOTIDINE 20 MG/2 ML VIAL IV PUSH ×2 (09:04→20:25)
[2021-04-14] MEDS: INSULIN ASPART (*BKC) 100 UNITS/ML 8 UNITS SUB-Q ×3 (09:04→17:10)
[2021-04-14] MEDS: INSULIN GLARGINE (*BKC) 100 UNITS/ML 25 UNITS SUB-Q ×2 (09:05→20:24)
[2021-04-14] MEDS: ALBUTEROL SULFATE (*SP) INHALER 2 PUFF INHALATION ×4 (09:11→20:10)
[2021-04-14 12:27] LABS: Glucose Point of Care 231 mg/dl (65-105)
[2021-04-14] MEDS: INSULIN ASPART (*BKC) 100 UNITS/ML SUB-Q (12:41)
--- NOTE | 2021-04-14 13:22 | PCNFU ---
Nutrition Follow-Up Complete: Inadequate oral intake related to UTI and COVID as evidenced by reported average intake of 52% Goal: Pt to meet nutritional needs Patient has limited progress towards goal. We will continue current goal. Pt current nutrition is NPO. Last recorded weight is 93 kg, up from 103.2 kg on admit. Bowel Motility:+BM reported 04/12 Labs Reviewed:Glu 215,GFR 15, BUN 106, PO4 5.1,Na 153 Meds Noted:Lantus, Novolog, Pepcid, Decadron. Unable to take PO meds today. Skin:left index finger wound Additional Notes: Patient current with non rebreather and 15 L02. Spoke with nursing today due to COVID precautions. Patient is unable to take PO at this time. Plans for family meeting today regarding plan of care. If tube feedings would start Recommend: Nepro at 20 ml/hr advance by 10 ml q 4 hours to day goal rate of 45 ml/hr. Providing 1782 kcals/80 gms protein/720 ml water. Will monitor labs, medication, wt, and reported intake every 3 days.
[2021-04-14 14:49] LABS: Chloride Rand Ur <20 mmol/L (32-290); Creatinine Random Urine 60 mg/dL (20-275)
--- NOTE | 2021-04-14 14:53 | PM.PNNEP ---
Progress Note: A&P Assessment and Plan (1) Acute kidney injury: Code(s): N17.9 - Acute kidney failure, unspecified Status: Acute Assessment and Plan: as noted on admission but has worsened since 04/05/21 making urine but not fully documented suspect multifactorial etiology: prerenal factors (poor oral intake) infection (UTI + COVID-19) relative hypotension urine electrolytes suggest prerenal azotemia renal ultrasound without acute pathology given CXR findings, holding aggressive IVF hydration follow trend of labs and UOP (2) Chronic kidney disease, stage 4 (severe): Code(s): N18.4 - Chronic kidney disease, stage 4 (severe) Status: Chronic Assessment and Plan: baseline creatinine (from office records) is ~ 2.4 - 2.7mg/dl for the last few years secondary to her diabetes, hypertension, vascular disease, and age - related disease given outpatient evaluation (3) Hypernatremia: Code(s): E87.0 - Hyperosmolality and hypernatremia Status: Acute Assessment and Plan: as noted by trend of labs probably due to a free water deficit due to inadequate oral fluid intake encourage free water intake if possible however, if unsafe to do so given AMS, consider doboff tube placement and free water flushes along with enteral feedings (4) Hypertension: Code(s): I10 - Essential (primary) hypertension Status: Chronic Assessment and Plan: was running on the low side recently but better at this time holding BP medications at this time (5) Altered mental status: Code(s): R41.82 - Altered mental status, unspecified Status: Acute Assessment and Plan: appear to continue to deteriorate presumably related to infection/fevers and possibly hypernatremia along with worsening kidney function follow mentation (6) COVID-19: Code(s): U07.1 - COVID-19 Status: Acute Assessment and Plan: noted positivity on this admission not a candidate for remdesivir due to #1 on steroids follow respiratory status (7) Urinary tract infection: Code(s): N39.0 - Urinary tract infection, site not specified Status: Acute Assessment and Plan: urine culture with Group B strep and Enterococcus completed course of antibiotics Long and extensive discussion (> 20 minutes) with patient's regarding overall declining status (mentation, poor oral intake, hypoxia, renal dysfunction); dialysis is an option and may provide clearance of uremic toxins and possibly improve mentation but it also may not and it would not change the issue of her COVID-19 infection and respiratory decline - she may need intubation and mechanical ventilation fairly soon; he will talk with other family members about goals of therapy and how aggressive they want to be given her other chronic medical issues (previous CVA, wheelchair bound status, CLL, COPD...etc). Will continue to follow. Subjective Date/time seen: 04/14/21 14:53 Continues to deteriorate despite ongoing therapy; she is obtunded/lethargic and non-communicative at this time; her renal function continues to deteriorate and her oral intake is poor (probably non-existent given her mentation); surprisingly, her hemodynamics are better/stable; was at bedside and we discussed the situation. Exam Narrative: General: ill appearing female who is obtunded/lethargic Heart: normal S1 and S2; no rub Lungs: few wheezes and rhonchi noted Abdomen: soft, nontender, nondistended, positive bowel sounds Extremities: no cyanosis or clubbing; trace edema Skin: no rash or nodules Objective Data Vital Signs Vital Signs: Vital Signs Temp Pulse Resp BP Pulse Ox 04/14/21 14:00 37.1 C 112 H 28 H 124/86 92 04/14/21 09:12 95 04/14/21 09:00 98 04/14/21 06:00 36.8 C 79 15 115/60 97 04/13/21 22:22 98 94 04/13/21 22:00 37.4 C 106 H 17 144/
--- NOTE | 2021-04-14 14:53 | P.PNNP_ITS ---
Progress Note: A&P Assessment and Plan (1) Acute kidney injury: Code(s): N17.9 - Acute kidney failure, unspecified Status: Acute Assessment and Plan: * as noted on admission but has worsened since 04/05/21 * making urine but not fully documented * suspect multifactorial etiology: * prerenal factors (poor oral intake) * infection (UTI + COVID-19) * relative hypotension * urine electrolytes suggest prerenal azotemia * renal ultrasound without acute pathology * given CXR findings, holding aggressive IVF hydration * follow trend of labs and UOP (2) Chronic kidney disease, stage 4 (severe): Code(s): N18.4 - Chronic kidney disease, stage 4 (severe) Status: Chronic Assessment and Plan: * baseline creatinine (from office records) is ~ 2.4 - 2.7mg/dl for the last few years * secondary to her diabetes, hypertension, vascular disease, and age - related disease given outpatient evaluation (3) Hypernatremia: Code(s): E87.0 - Hyperosmolality and hypernatremia Status: Acute Assessment and Plan: * as noted by trend of labs * probably due to a free water deficit due to inadequate oral fluid intake * encourage free water intake if possible * however, if unsafe to do so given AMS, consider doboff tube placement and free water flushes along with enteral feedings (4) Hypertension: Code(s): I10 - Essential (primary) hypertension Status: Chronic Assessment and Plan: * was running on the low side recently but better at this time * holding BP medications at this time (5) Altered mental status: Code(s): R41.82 - Altered mental status, unspecified Status: Acute Assessment and Plan: * appear to continue to deteriorate * presumably related to infection/fevers and possibly hypernatremia along with worsening kidney function * follow mentation (6) COVID-19: Code(s): U07.1 - COVID-19 Status: Acute Assessment and Plan: * noted positivity on this admission * not a candidate for remdesivir due to #1 * on steroids * follow respiratory status (7) Urinary tract infection: Code(s): N39.0 - Urinary tract infection, site not specified Status: Acute Assessment and Plan: * urine culture with Group B strep and Enterococcus * completed course of antibiotics Long and extensive discussion (> 20 minutes) with patient's regarding overall declining status (mentation, poor oral intake, hypoxia, renal dysfunction); dialysis is an option and may provide clearance of uremic toxins and possibly improve mentation but it also may not and it would not change the issue of her COVID-19 infection and respiratory decline - she may need intubation and mechanical ventilation fairly soon; he will talk with other family members about goals of therapy and how aggressive they want to be given her other chronic medical issues (previous CVA, wheelchair bound status, CLL, COPD...etc). Will continue to follow. Subjective Date/time seen: 04/14/21 14:53 Continues to deteriorate despite ongoing therapy; she is obtunded/lethargic and non-communicative at this time; her renal function continues to deteriorate and her oral intake is poor (probably non-existent given her mentation); surprisingly, her hemodynamics are better/stable; was at bedside and we discussed the situation. Exam Narrative: General: ill appearing female who is obtunded/lethargic Heart: normal S1 and S2; no rub Lungs: few wheezes and rhonchi no
--- NOTE | 2021-04-14 15:00 | PM.IMPN ---
Progress Note: A&P Assessment and Plan (1) Acute respiratory failure: Code(s): J96.00 - Acute respiratory failure, unspecified whether with hypoxia or hypercapnia Status: Acute Assessment and Plan: MONSALVE clearly secondary to acute COVID-19 pneumonia. Currently on 15 L O2 non-rebreather. Cannot receive remdesivir due to poor kidney function. was contacted and updated about current clinical condition. (2) Altered mental status: Code(s): R41.82 - Altered mental status, unspecified Status: Acute Assessment and Plan: Altered mental status. Likely multifactorial. Patient is being treated for acute COVID-19 pneumonia. She has a baseline seizure disorder. Head CT was unremarkable. Patient is confused and lethargic p.o. lower intake is very poor. Swallow evaluation was pulse; minced and moist diet recommended with thickened fluids. Provided the patient assistance with feeding. We will order stat swallow evaluation. We started gentle IV fluids. Patient has a known diagnosis of cerebrovascular accident, with right residual deficits. However she was able to communicate. Today She is more awake, alert and somewhat communicative. Head CT was unremarkable on during 04/06/2021.. Meanwhile allow permissive hypertension and hold blood pressure medications. Patient was febrile with a maximum temperature of 100.8? F on 04/12. blood pressure remained stable in the range of 115/60-124/86. Chest x-ray shows diffuse lung disease with improvement in the right mid lung zone, consistent with COVID-19 pneumonia. Unfortunately due to worsening kidney function, we are unable to leave remdesivir. Due to penicillin allergy, patient has been started on Levaquin. Continue IV Levaquin. (3) Urinary tract infection: Code(s): N39.0 - Urinary tract infection, site not specified Status: Acute Assessment and Plan: Urine shows pyuria. Urine culture sent. Patient started on Levaquin for worsening pneumonia. (4) COVID-19: Code(s): U07.1 - COVID-19 Status: Acute Assessment and Plan: -Patient Currently requiring oxygen 15 L. unfortunately,remdesivir cannot be started due to poor kidney function. Continue dexamethasone. Repeat chest x-ray suggests diffuse lung disease with improvement in right midlung zone, consistent with COVID-19 pneumonia..Continue supportive care measures. Patient is currently stable and afebrile. Renal function is poor; however if creatinine improve, we may consider baricitinib in consideration for escalating oxygen requirement; (5) Abnormal computed tomography of abdomen and pelvis: Code(s): R93.5 - Abnormal findings on diagnostic imaging of other abdominal regions, including retroperitoneum Status: Acute Assessment and Plan: CT shows mild right hydro ureteral nephrosis and urothelial thickening in the distal right ureter as well as diffuse bladder wall thickening. Findings may very well be related to inflammation due to underlying infection however radiologist cannot rule out malignancy. No obstructing kidney stones noted on that side. Urology was consulted. This is likely related to inflammation. Repeat KUB as an outpatient. (6) Generalized weakness: Code(s): R53.1 - Weakness Status: Acute Assessment and Plan: Secondary to urinary tract infection. Also positive for COVID. Initiate fall precautions. PT/OT. Concern about sending her home because she is bedbound/wheelchair bound secondary to prior stroke. and daughter both help care for her and transfer her. With her being covid positive, she is unable to care for herself and while in this isolation period I have concerns about exposing her other family members. (7) Anemia of chronic disease: Code(s): D63.8 - Anemia in other chronic diseases classified elsewhere Status: Acute Assessment and Plan: Hemoglobin and hematocrit are stable o
[2021-04-14 15:16] LABS: Basophils Percent Auto 0.1 % (0.2-1.2); Hematocrit 43.7 % (37.0-47.0); Hemoglobin 13.1 g/dL (12.0-15.0); Immature Granulocyte Percent A 0.6 % (0-0.5); Lymphocytes Absolute Auto 1.47 K/mm3 (0.9-3.2); Lymphocytes Percent Auto 9.5 % (18.3-44.2); Mean Corpuscular Hemoglobin 28.7 pg (26-34); Mean Corpuscular Volume 95.8 fl (80-100); Mean Platelet Volume 10.7 fl (7.4-10.4); Monocytes Absolute Auto 0.2 K/mm3 (0.1-0.6); Monocytes Percent Auto 1.4 % (2.6-8.5); Neutrophils Absolute Auto 13.7 K/mm3 (1.3-6.7); Neutrophils Percent Auto 88.4 % (45.5-73.1); Platelet Count Result 467 k/mm3 (150-375); Red Blood Count 4.56 M/mm3 (4.2-5.4); White Blood Count 15.5 K/mm3 (4.5-10.0)
[2021-04-14 15:23] LABS: Alanine Aminotransferase 38 U/L (4-35); Aspartate Amino Transferase 27 U/L (14-36); Estimated CRCL calculation 10 ml/min; Estimated Glomerular Filt Rate 8
--- NOTE | 2021-04-14 15:39 | PM.CNPUL ---
Assessment and Plan Assessment and plan (1) Acute respiratory failure: Onset Date: ~03/2021 Code(s): J96.00 - Acute respiratory failure, unspecified whether with hypoxia or hypercapnia Status: Acute Assessment and Plan: Worsening respiratory failure with acute respiratory arrest requiring intubation 04/14 after 10 pm, and this is due to COVID pneumonia with hypoxemia and worsening metabolic acidosis with renal failure. She is not able to take remdesivir due to progressive renal failure, and she is already on dexamethasone. She is being transferred to the ICU tonight. She will likely need dialysis to manage the acidosis as she does not have the respiratory reserve with her current pneumonia and infiltrates. (2) Chronic obstructive pulmonary disease, unspecified: Code(s): J44.9 - Chronic obstructive pulmonary disease, unspecified Status: Acute Assessment and Plan: Has history of COPD, history of smoking. She is on bronchodilators. (3) COVID-19: Code(s): U07.1 - COVID-19 Status: Acute Assessment and Plan: She is on dexamethasone with baricitinib started on Apr 12. She is not on remdesivir as she has worsening renal failure. History of Present Illness History of Present Illness Consult date: 04/14/21 Requesting physician: Rufina Dyson MD Reason for consult: other (COVID 19 pneumonia, worsening oxygenation) Chief complaint: UTI Narrative: NEW: Billie Holcomb is a 71 ear old female with COVID pneumonia and worsening acute hypoxemic respiratory failure. Admission on Mar 29 for shortness of breath, UTI, DM, hypertension and chronic kidney disease which has been worsening during the admission. She had worsening respiratory failure and became apneic tonight however she did not lose a pulse. A code was called to Room 324. Dr Choudhary was present and was intubating the patient as the family requested all measures be taken and she is a full code. She has equal breath sounds after intubation and she is being moved to the ICU for care. Her ABG shows metabolic acidosis with adequate oxygenation. Her creatinine is 5.1, and post intubation ABG pH 7.255/pCO2 37/pO2 86/HCO3 16 on 100% rate 24, 8 PEEP. CXR today 04/14/2021 before intubation IMPRESSION: 1. Diffuse lung disease with worsening on the left, consistent with COVID-19 pneumonia. Review of Systems Review of Systems: ROS unobtainable: Yes unobtainable due to endotracheal tube PMFSH Past Medical History Medical History Anemia of chronic disease Cerebrovascular accident (09/2008) 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 Chronic kidney disease, stage 4 (severe) Chronic lymphocytic leukemia Chronic obstructive pulmonary disease, unspecified Essential (primary) hypertension Hyperlipidemia, unspecified Seizure disorder Sleep apnea, unspecified Type 2 diabetes mellitus with diabetic polyneuropathy, without long-term current use of insulin Vitamin D deficiency, unspecified Surgical History Surgical History History of carpal tunnel release History of dilation and curettage History of elbow surgery History of exploratory laparotomy History of knee replacement History of partial hysterectomy Family History Family History Mother Family history of diabetes mellitus in first degree relative Diabetes mellitus Sibling Family history of diabetes mellitus in first degree relative Father Patient's father is Acute myocardial infarction Family history of congestive heart failure Other Family history of lymphoma Social Histo
[2021-04-14 17:07] LABS: Glucose Point of Care 197 mg/dl (65-105)
[2021-04-14] MEDS: SODIUM CHLORIDE 0.9% IV 1,000 ML 30 ML IV CONT (17:19)
--- NOTE | 2021-04-14 21:40 | PC.NURSE ---
Call placed to spouse related to patient condition, given update about her respiratory status and spoke related to her mental status. Jones (spouse) stated he wished for her to continue to be a full code at this time and to intubate if needed.
[2021-04-14 22:24] LABS: Glucose Point of Care 184 mg/dl (65-105)
[2021-04-14 22:25] LABS: Alveolar/Arterial O2 Gradient 590.4 mmHg; Base Excess ABG -10.3 mEq/l (+/-2.0); Carboxyhemoglobin 0.2 % THb (0-2.0); Fractional Inspired Oxygen 100 %; Methemoglobin ABG 0.3 %THb (0-1.5); Oxygen Content ABG 18.2 %vol (16.0-22.0); Oxygen Saturation ABG 95.1 % (95.0-100.0); Oxyhemoglobin 92.3 % THb (90.0-100.0); PCO2 ABG 36.9 mmHg (35.0-45.0); PO2 ABG 85.7 mmHg (80.0-100.0); PO2 FiO2 Ratio Arterial Blood 0.86 %; Reduced Hemoglobin 7.2 %THb (0-5.0)
[2021-04-14 22:28] LABS: Device VENTILATOR; Modified Allen's Test Pass; Site Drawn LEFT RADIAL; pH ABG 7.255 (7.350-7.450)
[2021-04-14 22:29] LABS: Arterial Blood Gas PEEP 8 cmH2O; Arterial Blood Gas Tidal Volume 260 ml; Arterial Blood Gas Vent Mode CMV; Arterial Blood Gas Ventilator rate 24 /MIN
--- NOTE | 2021-04-14 22:36 | PC.NURSE ---
Called to room by my aide, Patient noted to be breathing in the 30's HR 120-130 saturations 90% on 15L non-rebreather and 15L HF patient non responsive. Dr Choudhary notified and charge nurse Meggan to call and update . Dr Choudhary to bedside for assessment patient began agonal breathing and code was called
--- NOTE | 2021-04-14 22:37 | ECG_ITS ---
Measurements Intervals [place] Rate: 96 P: 58 MS: 150 QRS: 0 QRSD: 84 T: 255 QT: 375 QTc: 476 Interpretive Statements SINUS RHYTHM FREQUENT VENTRICULAR PREMATURE COMPLEXES DELAYED PRECORDIAL R/S TRANSITION LOW QRS VOLTAGE IN PRECORDIAL LEADS ST-T WAVE ABNORMALITY IN ANTEROLAT/HIGH LAT LEADS- CONSIDER ISCHEMIA BASELINE ARTIFACT- I, II, V3-V6 ABNORMAL ECG Electronically Signed On 04-15-2021 6:14:14 ELECTRICAL LOGGING ENGINEER by Feliz Sifuentes D.O.
--- NOTE | 2021-04-14 22:46 | ECG_ITS ---
Measurements Intervals [place] Rate: 136 P: CO: 0 QRS: 0 QRSD: 81 T: 226 QT: 329 QTc: 497 Interpretive Statements ATRIAL FIBRILLATION WITH RAPID VENTRICULAR RESPONSE BORDERLINE ST-T WAVE ABNORMALITY- DIFFUSE LEADS BASELINE ARTIFACT- III, V3-V6 ABNORMAL ECG Electronically Signed On 04-19-2021 8:03:03 IMPERSONATOR CHARACTER by Feliz Sifuentes D.O.
--- NOTE | 2021-04-14 22:48 | PC.NURSE ---
Call placed to spouse Jones related to Code, due to patient stopped breathing, and patient intubated she would be going into ICU.
--- NOTE | 2021-04-14 23:00 | ADMGEN ---
This patient, Billie Holcomb, was admitted to Intensive Care Unit-10. post respiratory arrest on ventilator not resposive Patient/family oriented to hospital policies and general routines including ID bracelet, bed and alarms, visiting hours, pain management, procedures, bathroom and other care routines, personal items, smoking policy, room service/diet, and visiting hours. Information on how to activate the Rapid Response Team has been discussed. Patient/Family are encouraged to report perceived risks to care and to ask questions if they do not understand what they are told or what they should do.
--- NOTE | 2021-04-14 23:19 | P.RRN_ITS ---
Critical Care Event Note Summary Code activated: Yes Narrative: 04/14/2021 at 9:45 p.m. Nursing staff called to notify me the patient was maxed out on high-flow nasal cannula and non-rebreather. The patient's oxygen saturations were remaining low at 84%. The patient was unresponsive and staring off into space. Patient's heart rate had climbed to 130 and respiratory rate was in the mid 30s. When I arrived at the patient's bedside she had generalized pallor and had cyanosis of her nailbeds. She was staring straight off into space and was unresponsive to painful stimuli. Pupils were equal and reactive. Patient is having agonal respirations. I called a code. The patient was intubated while on the medical floor. Post intubation the patient did have some hypotension received 1 L of normal saline bolus. Patient never had loss of pulse during resuscitation. Initial ABG immediately post intubation demonstrated pH of 7.255 pCO2 of 36 and PO2 of 85. The patient was transferred to the ICU. The tank inspector was contacted and recommended vent settings tidal volume 330 peep of 8 rate of 24. We are having difficulty obtaining accurate pulse oximetry readings however repeat ABG demonstrated normal PO2. The patient's blood pressures improved and remained stable after initial fluid bolus. The patient was transferred to the ICU. As patient was placed on sedation as needed with fentanyl and Versed however as I was leaving the ICU I went to re-evaluate the patient and she still had not woke up despite not being on sedation as of yet. Stat labs were ordered post code but had not been drawn till after transfer to the ICU. 95 minutes spent in critical care activities in exclusion of procedures. Due to a high probability of clinically significant, life threatening deterioration, the patient required my highest level of preparedness to intervene emergently and I personally spent this critical care time directly and personally managing the patient. This critical care time included obtaining a history; examining the patient; pulse oximetry; ordering and review of studies; arranging urgent treatment with development of a management plan; evaluation of patient's response to treatment; frequent reassessment; and discussions with other providers. It was exclusive of separately billable procedures and treating other patients and teaching time. Please see Assessment and Plan section and the rest of the note for further information on patient assessment and treatment. Critical care time: 75 - 104 mins
--- NOTE | 2021-04-14 23:36 | WPDPROCEDUR ---
Procedures Intubation Intubation Date: 04/14/21 Intubation Time: 22:00 Mg given: 20 Laryngoscope: Zenobia ET tube size: 7 Tube secured depth (cm): 24 Tube placement confirmation: visualized tube passing through cords, equal breath sounds bilaterally, no breath sounds over epigastrium and confirmation by capnometry Additional comments: 20 mg of etomidate was given however medication infiltrated under the skin. The patient was being bagged with a PEEP valve of 10 and was relatively easy to bag. The patient did go apneic and subsequently intubation attempt was made with a 3 Rankin. The patient airways was completely obstructed with thick dried mucus plaquing covering the larynx and esophageal opening. Aggressive suctioning and pulling away of the mucous blockage was attempted. Subsequently 2nd intubation attempt with a 3 Zenobia blade was successful. ET tube was secured at 24 cm. However post intubation chest x-ray demonstrated ET tube 2 cm from the landy. RT pulled back ET tube 2 cm.
[2021-04-14] MEDS: FENTANYL 2,500MCG/NS250ML(*CRX 2,500 MCG/250 ML BAG IV CONT (23:59)
[2021-04-14] MEDS: RAPID SEQUENCE INTUBATION KIT 1 EACH (23:59)
[2021-04-15] VITALS (34 sets, daily range): BP systolic 49–228; BP diastolic 24–197; PULSE 73–193; RESP 22–34; TEMP 36.9–37; O2SAT 67–80; BMI 40.4
[2021-04-15] MEDS: MIDAZOLAM 100MG/NS 100ML(*CRX) 100 MG/100 ML BAG IV CONT
[2021-04-15] MEDS: SODIUM CHLORIDE 0.9% IV 1,000 ML 70 ML IV CONT (00:02)
[2021-04-15 00:26] LABS: Alanine Aminotransferase 36 U/L (4-35); Albumin Level 3.5 g/dL (3.5-5.1); Alkaline Phosphatase 99 U/L (38-126); Anion Gap 21 mmol/L (8-16); Aspartate Amino Transferase 34 U/L (14-36); Bilirubin,Total 0.9 mg/dL (0.2-1.3); Blood Urea Nitrogen > 120 mg/dL (7-17); Carbon Dioxide 18 mmol/L (22-30); Chloride 131 mmol/L (98-107); Estimated CRCL calculation 8 ml/min; Estimated Glomerular Filt Rate 7; Glucose 197 mg/dL (65-110); Magnesium 4.1 mg/dL (1.6-2.3); Phosphorus 9.6 mg/dL (2.5-4.5); Potassium 5.4 mmol/L (3.4-5.0); Sodium 170 mmol/L (137-145)
[2021-04-15 00:27] LABS: Lactic Acid Reflex 5.5 mmol/L (0.7-2.1)
[2021-04-15 00:38] LABS: Troponin I 0.523 ng/mL (0.000-0.034)
[2021-04-15 00:53] LABS: Alveolar/Arterial O2 Gradient 568.8 mmHg; Base Excess ABG -9.8 mEq/l (+/-2.0); Carboxyhemoglobin 0.2 % THb (0-2.0); Fractional Inspired Oxygen 100 %; Methemoglobin ABG 0.4 %THb (0-1.5); Oxygen Content ABG 16.9 %vol (16.0-22.0); Oxygen Saturation ABG 94.4 % (95.0-100.0); Oxyhemoglobin 92.8 % THb (90.0-100.0); PCO2 ABG 54.2 mmHg (35.0-45.0); Reduced Hemoglobin 6.6 %THb (0-5.0); Total Hemoglobin 12.9 g/dL (12.0-18.0)
[2021-04-15 00:55] LABS: Device VENTILATOR; Modified Allen's Test Pass; Site Drawn RIGHT RADIAL; pH ABG 7.163 (7.350-7.450)
[2021-04-15 00:56] LABS: Arterial Blood Gas Vent Mode CMV; Arterial Blood Gas Ventilator rate 15 /MIN
[2021-04-15 00:57] LABS: Arterial Blood Gas PEEP 8 cmH2O; Arterial Blood Gas Tidal Volume 320 ml
[2021-04-15 01:39] LABS: Glucose Point of Care 109 mg/dl (65-105)
[2021-04-15 01:56] LABS: Glucose Point of Care 182 mg/dl (65-105)
--- NOTE | 2021-04-15 02:04 | ECG_ITS ---
Measurements Intervals [place] Rate: 117 P: 39 ME: 149 QRS: -7 QRSD: 85 T: 193 QT: 300 QTc: 419 Interpretive Statements SINUS TACHYCARDIA LOW QRS VOLTAGE IN PRECORDIAL LEADS BORDERLINE R WAVE PROGRESSION, ANTERIOR LEADS ST-T WAVE ABNORMALITY IN ANTEROLAT/HIGH LAT LEADS- CONSIDER ISCHEMIA ABNORMAL ECG Electronically Signed On 04-15-2021 6:16:59 BOILER REPAIR SUPERVISOR by Feliz Sifuetnes D.O.
[2021-04-15] MEDS: NOREPINEPHRINE 8 MG/D5W 250 ML 8 MG/250 ML BAG 56.25 MG IV CONT (02:20)
[2021-04-15] MEDS: VASOPRESSIN INJ 100 UNITS in DEXTROSE 5% 95 ML IV CONT (02:28)
[2021-04-15] MEDS: DOPamine 400 MG/D5W 250 ML 400 MG/250 ML BAG 6.98 MG IV CONT (02:30)
--- NOTE | 2021-04-15 02:46 | PDCODEBLUE ---
Code Blue Note Code Blue Note Time Arrived at Code Blue: At bedside when code called 01:24 Initial Rhythm on Arrival: PEA Airway Management: Pt being bagged on arrival Chest Compressions: Initiated upon arrival Cardiac Rhythm Post Code: Sinus tachycardia Robert Rios Summary: 04/15/2021 at 01:24 nursing staff called me to the patient's bedside because the patient has becoming bradycardic with heart rate in the 40s. I given order for atropine and a bicarb push. By time I arrived to the ICU patient's heart rate was 80 foot during my assessment patient no longer had a pulse and we are unable to cycle of blood pressure. Defibrillator pads were already in place. Patient received another amp of sodium bicarb and an amp of epinephrine. During a pulse check patient was in asystole. Resuscitation efforts were continued with another course of epinephrine, calcium and bicarb is the patient's labs were reviewed and demonstrated hyperkalemia, severe lactic acidosis and worsening renal failure. On repeat rhythm check the patient was in VFib. Patient was shocked. On repeat rhythm check patient was again in VFib and received another shock. In total during resuscitation the patient received 4 amps of sodium bicarb in addition to the and prior to code. She also received 2 amps of calcium chloride in 5 amps of epinephrine. After final defibrillation the patient had return of perfusing rhythm with heart rate of 140 in systolic blood pressure greater than 100. Patient's ABG was reviewed and demonstrated severe metabolic acidosis. With mild respiratory acidosis. Tidal volume was increased to 340 and respiratory rate was increased to 30 on the ventilator. Patient's PO2 was normal at 90. However we were unable to obtain accurate pulse ox readings due to poor perfusion. Repeat EKG was performed post code which demonstrated T-wave abnormalities/inversions 1 aVL V5 V6 2 and AVF. The patient had a EKG after intubation earlier in the evening which suggested possible acute [place] however repeat EKG performed 5 minutes later with improved tracing demonstrated similar findings to EKG following this code. Post code the patient became markedly hypotensive. 2 L normal saline bolus were administered. Patient was also started on vasopressor therapy with Levophed. While waiting for vasopressin to arrive at bedside the patient was also started on dopamine. However, after dopamine 2 mg was not administered patient became markedly tachycardic with heart rate of 180-200. Dopamine was stopped. Vasopressin was initiated. Unfortunately patient's heart rate still remained between 160 and 200. Subsequently Levophed was decreased to 20 and Jaquan-Synephrine was ordered. The patient had normalization of blood pressure with systolic blood pressures between 100. Patient's heart rate still remain elevated but we are attempting to wean Levophed and titrate up Jaquan-Synephrine for affect. Repeat lactic acid, troponin, and a.m. labs have been ordered. Repeat blood gas has been ordered for 4:00 a.m.. 100 minutes spent in critical care activities Condition: Critical, unstable Prognosis: grim
[2021-04-15] MEDS: SODIUM BICARBONATE 8.4% 50 MEQ/50 ML SYRINGE 100 MEQ (02:52)
[2021-04-15] MEDS: SODIUM BICARBONATE 8.4% 50 MEQ/50 ML SYRINGE (02:52)
[2021-04-15] MEDS: LACTATED RINGERS 1,000 ML 999 ML IV CONT (02:55)
[2021-04-15 02:58] LABS: Reflex Lactic Acid Yes or No Add Lactic
--- NOTE | 2021-04-15 03:18 | P.PCNBED_ITS ---
Procedures Central Line Placement Right Femoral: Central Line Date: 04/15/21 Central Line Time: 01:45 Performed Emergently - Given emergent patient condition, temporal constraints may have precluded informed consent.: Yes Patient Position: supine Patient placed on monitor/pulse ox: Yes Provider Prep: mask, sterile gown, sterile gloves, Max. sterile barrier precautions, cap and hand hygiene with conventional soap/water or alcohol based hand rub Central line prep: 2% Chlorhexidine scrub Sterile US Technique with sterile gel/sterile probe covers: Yes Central line lumen inserted: triple Italian: 7 Length (cm): 16 Depth of Insertion (cm): 15 Post Procedure: sutured in place, good blood return, all ports aspirated, flushed, capped, transparent dressing, hemostatic product, antimicrobial product, securement product and aseptic technique maintained throughout procedure Patient tolerated procedure: no complications
[2021-04-15] MEDS: SODIUM BICARBONATE 8.4% 150 MEQ in WATER, STERILE FOR INJECTION 950 ML 100 MEQ IV CONT (03:32)
[2021-04-15 03:33] LABS: Basophils Absolute Auto 0.1 K/mm3 (0.0-0.1); Basophils Percent Auto 0.4 % (0.2-1.2); Hematocrit 35.2 % (37.0-47.0); Hemoglobin 10.2 g/dL (12.0-15.0); Immature Granulocyte Absolute 0.29 K/mm3 (0.00-0.031); Immature Granulocyte Percent A 2.2 % (0-0.5); Lymphocytes Absolute Auto 1.45 K/mm3 (0.9-3.2); Mean Corpuscular Hemoglobin 29.1 pg (26-34); Mean Corpuscular Volume 100.6 fl (80-100); Mean Platelet Volume 10.7 fl (7.4-10.4); Monocytes Absolute Auto 0.1 K/mm3 (0.1-0.6); Monocytes Percent Auto 0.6 % (2.6-8.5); Neutrophils Absolute Auto 11.4 K/mm3 (1.3-6.7); Neutrophils Percent Auto 85.8 % (45.5-73.1); Nucleated Red Blood Cells Perc 0.2 % (0.0-0.2); Platelet Count Result 303 k/mm3 (150-375); White Blood Count 13.2 K/mm3 (4.5-10.0)
[2021-04-15 03:43] LABS: INR 2.7; Prothrombin Time 27.7 Seconds (11.1-14.7)
[2021-04-15 03:44] LABS: Fibrinogen 451 mg/dl (215-510); Partial Thromboplastin Time 41.7 SECONDS (22.3-36.8)
[2021-04-15 04:10] LABS: Potassium 6.1 mmol/L (3.4-5.0); Sodium 174 mmol/L (137-145); Troponin I 0.673 ng/mL (0.000-0.034)
[2021-04-15 04:12] LABS: Anion Gap 24 mmol/L (8-16); Carbon Dioxide 24 mmol/L (22-30); Chloride 126 mmol/L (98-107); Estimated CRCL calculation 9 ml/min; Estimated Glomerular Filt Rate 7; Glucose 83 mg/dL (65-110)
[2021-04-15 04:24] LABS: D Dimer > 20.00 ug/mL (<0.48)
[2021-04-15 04:25] LABS: Lactic Acid 12.3 mmol/L (0.7-2.1)
[2021-04-15 04:27] LABS: Alveolar/Arterial O2 Gradient 624.9 mmHg; Base Excess ABG -5.5 mEq/l (+/-2.0); Carboxyhemoglobin 0.2 % THb (0-2.0); Fractional Inspired Oxygen 100 %; HCO3 ABG 20.3 mEq/l (22.0-26.0); Methemoglobin ABG 0.3 %THb (0-1.5); Oxygen Content ABG 12.5 %vol (16.0-22.0); PCO2 ABG 40.4 mmHg (35.0-45.0); PO2 FiO2 Ratio Arterial Blood 0.48 %; Reduced Hemoglobin 23.4 %THb (0-5.0); Total Hemoglobin 11.7 g/dL (12.0-18.0); pH ABG 7.318 (7.350-7.450)
[2021-04-15 04:29] LABS: PO2 ABG 47.7 mmHg (80.0-100.0)
[2021-04-15 04:31] LABS: Oxygen Saturation ABG 80.3 % (95.0-100.0); Oxyhemoglobin 76.1 % THb (90.0-100.0)
[2021-04-15 04:32] LABS: Device VENTILATOR; Site Drawn RIGHT BRACHIAL
[2021-04-15 04:33] LABS: Arterial Blood Gas PEEP 8 cmH2O; Arterial Blood Gas Tidal Volume 340 ml; Arterial Blood Gas Vent Mode CMV; Arterial Blood Gas Ventilator rate 28 /MIN
[2021-04-15] MEDS: INSULIN HUMAN REGULAR (*BKC) 100 UNITS/ML 10 UNITS IV PUSH ×2 (04:35→09:17)
[2021-04-15] MEDS: DEXTROSE 50% 25 GM/50 ML SYRINGE IV PUSH ×2 (04:35→09:18)
[2021-04-15] MEDS: DEXTROSE 5% 1,000 ML 1,000 ML 125 ML IV CONT (04:42)
[2021-04-15] MEDS: CENTRAL LINE FLUSH 10 ML IV PUSH (04:46)
[2021-04-15] MEDS: CALCIUM GLUCONATE 1,000 MG/10 ML VIAL 1000 MG IV PUSH (04:46)
[2021-04-15] MEDS: ALBUTEROL SULFATE NEB 2.5 MG/0.5 ML INH 15 MG INHALATION (04:55)
--- NOTE | 2021-04-15 05:00 | PC.NURSE ---
Dr. Choudhary at bedside. Aware of all critical labs & ABGs.
[2021-04-15 05:04] LABS: Alanine Aminotransferase > 3750 U/L (4-35); Aspartate Amino Transferase > 7500 U/L (14-36); Blood Urea Nitrogen 153 mg/dL (7-17)
[2021-04-15 05:17] LABS: Carboxyhemoglobin 0.1 % THb (0-2.0); Fractional Inspired Oxygen 100 %; Methemoglobin ABG 0.3 %THb (0-1.5)
[2021-04-15 05:27] LABS: Alveolar/Arterial O2 Gradient 621.4 mmHg; Base Excess ABG -6.2 mEq/l (+/-2.0); HCO3 ABG 19.3 mEq/l (22.0-26.0); PCO2 ABG 38.3 mmHg (35.0-45.0); PO2 ABG 53.3 mmHg (80.0-100.0); Total Hemoglobin 10.6 g/dL (12.0-18.0)
[2021-04-15 05:28] LABS: Device VENTILATOR; Modified Allen's Test Unable to perform; Oxygen Content ABG 12.1 %vol (16.0-22.0); PO2 FiO2 Ratio Arterial Blood 0.53 %; Reduced Hemoglobin 18.5 %THb (0-5.0); Site Drawn LEFT BRACHIAL
[2021-04-15 05:29] LABS: Oxygen Saturation ABG 85.2 % (95.0-100.0); Oxyhemoglobin 81.1 % THb (90.0-100.0)
[2021-04-15 05:30] LABS: Arterial Blood Gas Vent Mode CMV; Arterial Blood Gas Ventilator rate 28 /MIN
[2021-04-15 05:31] LABS: Arterial Blood Gas PEEP 8 cmH2O; Arterial Blood Gas Tidal Volume 340 ml
[2021-04-15] MEDS: methylPREDNISolone SOD SUCC 125 MG VIAL 100 MG IV PUSH (05:45)
[2021-04-15 07:30] LABS: Ferritin > 2000.00 ng/mL (11.1-264)
[2021-04-15 08:24] LABS: Glucose Point of Care 140 mg/dl (65-105)
[2021-04-15] MEDS: NOREPINEPHRINE 8 MG/D5W 250 ML 8 MG/250 ML BAG 37.5 MG IV CONT (08:33)
[2021-04-15 09:04] LABS: Lactic Acid Reflex 11.3 mmol/L (0.7-2.1)
[2021-04-15] MEDS: ALBUTEROL SULFATE NEB 2.5 MG/0.5 ML INH 10 MG INHALATION (09:14)
[2021-04-15] MEDS: SODIUM POLYSTYRENE SULFONONATE 15 GM/60 ML BTL 30 GM PO (09:17)
[2021-04-15] MEDS: SODIUM BICARBONATE 8.4% 50 MEQ/50 ML SYRINGE IV PUSH (09:18)
[2021-04-15] MEDS: MINERAL OIL/WHITE PETROLATUM OINTMENT 1 APPLIC EACH EYE (09:18)
--- NOTE | 2021-04-15 09:39 | WPDCNINT ---
Assessment and Plan Assessment and plan (1) Acute respiratory failure: Onset Date: ~03/2021 Code(s): J96.00 - Acute respiratory failure, unspecified whether with hypoxia or hypercapnia Status: Acute Assessment and Plan: Acute respiratory failure likely related to COVID pneumonia, worsening oxygen requirements, intubated on 04/14/2021 -continue CMV mode of ventilation, 100% FiO2, peep of 8 -chest x-ray and ABGs reviewed, increase PEEP to 12, increased respiratory to 28, continue FiO2 at 100% -low tidal volume strategy to avoid volume trauma -continue bronchodilators -patient not on any sedation (2) Cardiac arrest: Code(s): I46.9 - Cardiac arrest, cause unspecified Status: Acute Assessment and Plan: Cardiac arrest likely related to hypoxia versus arrhythmia versus electrolyte abnormalities -patient with ROSC after 5 rounds of epinephrine. Roughly was down for 18-20 minutes. Patient also received bicarb, defibrillation x2 -currently unresponsive (3) Shock: Code(s): R57.9 - Shock, unspecified Status: Acute Assessment and Plan: Shock: Septic versus cardiogenic -patient on Levophed, vasopressin and Jaquan-Synephrine -continue vancomycin and meropenem -cultures have been obtained and pending (4) Hypernatremia: Code(s): E87.0 - Hyperosmolality and hypernatremia Status: Acute Assessment and Plan: Patient with a sodium level of 174, currently on D5 water -will continue to monitor sodium (5) Acute renal failure superimposed on stage 4 chronic kidney disease: Code(s): N17.9 - Acute kidney failure, unspecified; N18.4 - Chronic kidney disease, stage 4 (severe) Status: Acute Assessment and Plan: Acute on chronic kidney disease Worsening creatinine, oliguria/anuria received IV fluids nephrology following (6) Pneumonia due to COVID-19 virus: Code(s): U07.1 - COVID-19; J12.82 - Pneumonia due to coronavirus disease 2019 Status: Acute Assessment and Plan: covid-19 pneumonia will discontinue baricitinib, due to decreased GFR and shock liver continue droplet, airborne and contact isolation and precautions (7) LFTs abnormal: Code(s): R79.89 - Other specified abnormal findings of blood chemistry Status: Acute Assessment and Plan: likely shock liver Additional Plan d/w Jones Holcomb, patient's updated with patient's condition and plan of care. I did discuss with him regarding how critical she is and condition is very guarded. He understands that this is futile care as she is normally bed-bound and wheelchair-bound at home. He decided to withdraw support on her. Code status: Do not resuscitate Critical care time spent: 54 minute This dictation may have been done utilizing a voice recognition system. Attempts have been made to correct errors. However, there may be uncorrected grammatical, spelling, and recognition errors present. Due to a high probability of clinically significant, life threatening deterioration, the patient required my highest level of preparedness to intervene emergently and I personally spent this critical care time directly and personally managing the patient. This critical care time included obtaining a history; examining the patient; pulse oximetry; ordering and review of studies; arranging urgent treatment with development of a management plan; evaluation of patient's response to treatment; frequent reassessment; and discussions with other providers. It was exclusive of separately billable procedures and treating other patients and teaching time. Please see Assessment and Plan section and the rest of the note for further information on patient assessment and treatment Vocal Performer Consult Note Consult date: 04/15/21 Reason for consult: Cardiac arrest, acute respiratory failure, septic shock, covid-19 pneumonia, hyperkalemia HPI: Billie Holcomb is a 71 year old female with past med
--- NOTE | 2021-04-15 10:07 | P.PNNP_ITS ---
Progress Note: A&P Assessment and Plan (1) Acute kidney injury: Code(s): N17.9 - Acute kidney failure, unspecified Status: Acute Assessment and Plan: * Acute kidney injury. * suspect multifactorial etiology: * prerenal factors (poor oral intake) * infection (UTI + COVID-19) * relative hypotension * urine electrolytes suggest prerenal azotemia * renal ultrasound without acute pathology * Creatinine has been rising since admission. * Not making much urine. * Critically ill right now. Considering her comorbidities and the severity of her illness in a 71 year dialysis would not help the situation and therefore is not indicated. * Discussed with Dr. Bowman. He is talking with the family. I would agree with comfort measures. (2) Chronic kidney disease, stage 4 (severe): Code(s): N18.4 - Chronic kidney disease, stage 4 (severe) Status: Chronic Assessment and Plan: * baseline creatinine (from office records) is ~ 2.4 - 2.7mg/dl for the last few years * secondary to her diabetes, hypertension, vascular disease, and age - related disease given outpatient evaluation (3) Hypernatremia: Code(s): E87.0 - Hyperosmolality and hypernatremia Status: Acute Assessment and Plan: * Sodium level still high. Receiving hypotonic fluids. (4) Hypertension: Code(s): I10 - Essential (primary) hypertension Status: Chronic Assessment and Plan: * Currently hypotensive and on pressors. (5) Altered mental status: Code(s): R41.82 - Altered mental status, unspecified Status: Acute Assessment and Plan: * Sedated and on the ventilator. (6) COVID-19: Code(s): U07.1 - COVID-19 Status: Acute Assessment and Plan: * noted positivity on this admission * not a candidate for remdesivir due to #1 * on steroids * follow respiratory status * On respiratory isolation (7) Urinary tract infection: Code(s): N39.0 - Urinary tract infection, site not specified Status: Acute Assessment and Plan: * urine culture with Group B strep and Enterococcus * completed course of antibiotics Subjective Date/time seen: 04/15/21 10:07 Interval history: -patient is now in the ICU. She had a cardiac arrest yesterday. Now intubated and on 3 pressors. Very ill. Exam Narrative: General: ill appearing female on the ventilator and multiple pressors. Heart: normal S1 and S2; no rub Lungs: Breath sounds course and symmetric Abdomen: soft, nontender, nondistended, positive bowel sounds Extremities: trace edema Skin: no rash or nodules Objective Data Vital Signs Vital Signs: Vital Signs - 24 hr 04/14/21 14:00 04/14/21 20:09 04/14/21 21:30 Temperature 37.1 C 36.9 C Pulse Rate 112 H 72 122 H Respiratory Rate 28 H 24 H 36 H Blood Pressure 124/86 106/48 L Pulse Oximetry 92 87 L 04/14/21 23:00 04/14/21 23:20 04/14/21 23:59 Temperature 36.4 C Pulse Rate 102 H 99 102 H Respiratory Rate 25 H 22 H Blood Pressure 112/77 Pulse Oximetry 96 91 04/15/21 00:00 04/15/21 01:00 04/15/21 02:00 Temperature Pulse Rate 97 73 112 H Respiratory Rate 28 H Blood Pressure 105/91 H 60/24 L 100/70 Pulse Oximetry
--- NOTE | 2021-04-15 10:07 | PM.PNNEP ---
Progress Note: A&P Assessment and Plan (1) Acute kidney injury: Code(s): N17.9 - Acute kidney failure, unspecified Status: Acute Assessment and Plan: Acute kidney injury. suspect multifactorial etiology: prerenal factors (poor oral intake) infection (UTI + COVID-19) relative hypotension urine electrolytes suggest prerenal azotemia renal ultrasound without acute pathology Creatinine has been rising since admission. Not making much urine. Critically ill right now. Considering her comorbidities and the severity of her illness in a 71 year dialysis would not help the situation and therefore is not indicated. Discussed with Dr. Bowman. He is talking with the family. I would agree with comfort measures. (2) Chronic kidney disease, stage 4 (severe): Code(s): N18.4 - Chronic kidney disease, stage 4 (severe) Status: Chronic Assessment and Plan: baseline creatinine (from office records) is ~ 2.4 - 2.7mg/dl for the last few years secondary to her diabetes, hypertension, vascular disease, and age - related disease given outpatient evaluation (3) Hypernatremia: Code(s): E87.0 - Hyperosmolality and hypernatremia Status: Acute Assessment and Plan: Sodium level still high. Receiving hypotonic fluids. (4) Hypertension: Code(s): I10 - Essential (primary) hypertension Status: Chronic Assessment and Plan: Currently hypotensive and on pressors. (5) Altered mental status: Code(s): R41.82 - Altered mental status, unspecified Status: Acute Assessment and Plan: Sedated and on the ventilator. (6) COVID-19: Code(s): U07.1 - COVID-19 Status: Acute Assessment and Plan: noted positivity on this admission not a candidate for remdesivir due to #1 on steroids follow respiratory status On respiratory isolation (7) Urinary tract infection: Code(s): N39.0 - Urinary tract infection, site not specified Status: Acute Assessment and Plan: urine culture with Group B strep and Enterococcus completed course of antibiotics Subjective Date/time seen: 04/15/21 10:07 Interval history: -patient is now in the ICU. She had a cardiac arrest yesterday. Now intubated and on 3 pressors. Very ill. Exam Narrative: General: ill appearing female on the ventilator and multiple pressors. Heart: normal S1 and S2; no rub Lungs: Breath sounds course and symmetric Abdomen: soft, nontender, nondistended, positive bowel sounds Extremities: trace edema Skin: no rash or nodules Objective Data Vital Signs Vital Signs: Vital Signs - 24 hr 04/14/21 14:00 04/14/21 20:09 04/14/21 21:30 Temperature 37.1 C 36.9 C Pulse Rate 112 H 72 122 H Respiratory Rate 28 H 24 H 36 H Blood Pressure 124/86 106/48 L Pulse Oximetry 92 87 L 04/14/21 23:00 04/14/21 23:20 04/14/21 23:59 Temperature 36.4 C Pulse Rate 102 H 99 102 H Respiratory Rate 25 H 22 H Blood Pressure 112/77 Pulse Oximetry 96 91 04/15/21 00:00 04/15/21 01:00 04/15/21 02:00 Temperature Pulse Rate 97 73 112 H Respiratory Rate 28 H Blood Pressure 105/91 H 60/24 L 100/70 Pulse Oximetry 04/15/21 02:20 04/15/21 02:28 04/15/21 02:41 Temperature Pulse Rate 115 H 191 H 193 H Respiratory Rate Blood Pressure 49/36 L 82/49 L 97/69 L Pulse Oximetry 04/15/21 02:57 04/15/21 03:00 04/15/21 03:04 Temperature Pulse Rate 117 H 174 H 171 H Respiratory Rate 25 H 34 H Blood Pressure 141/128 H 141/128 H Pulse Oximetry 04/15/21 03:05 04/15/21 03:17 04/15/21 03:45 Temperature Pulse Rate 171 H 164 H Respiratory Rate Blood Pressure 118/107 H 58/30 L Pulse Oximetry 77 L 04/15/21 03:54 04/15/21 03:57 04/15/21 04:00 Temperature 37.0 C Pulse Rate 125 H 128 H Respiratory Rate 33 H Blood Pressure 90/45 L 65/26 L 65/26 L Pulse Oximetry 04/15/21 04:34 04/15/21
[2021-04-15] MEDS: LORazepam INJ (*CRX) 2 MG/ML VIAL IV PUSH (11:05)
[2021-04-15] MEDS: MORPHINE SULFATE INJ (*CRX) 10 MG/ML AMP 5 MG IV PUSH (11:11)
--- NOTE | 2021-04-15 12:45 | PCPTNOTE ---
Patient transferred to ICU from medical floor due to change in medical status. PT will discontinue therapy at this time.
--- NOTE | 2021-05-09 13:33 | PM.DDS ---
Discharge Summary Date and Time Date of : 04/15/21 Time of : 11:23 Provider Pronounced By: Gisele Aparicio RN and Paige Louie RN Probable Cause of Probable Cause of : Cardiac arrest, acute respiratory failure, severe metabolic acidosis, acute kidney injury Summary Hospital Course: 71 year old female with past medical of chronic kidney disease stage 4, chronic lymphocytic leukemia, COPD, essential hypertension, hyperlipidemia, seizure disorder, type 2 diabetes, polyneuropathy presented the ED on 03/29/2021 with complains of generalized weakness being cold, increased fatigue. She also did get a shot of Neupogen 10/06/2019. Patient tested positive for COVID pneumonia. He also had a UTI which grew Enterococcus. During the course of hospital stay patient had acute on chronic kidney disease, hypernatremia. Patient developed worsening respiratory failure with increasing oxygen requirements 04/14/2021 and was intubated on the medical floor and was transferred to the ICU which she had a 18-20 minute long code/cardiac arrest with ROSC. Patient was hyperkalemic, hyponatremic, worsening creatinine, lactic acid of 12.3, pH of 7.30, pCO2 78, PO2 of 53 and bicarb of 19, O2 sats 85%. Ventilator was adjusted. Patient did receive 3 L IV fluid bolus during the code last night. Urine output has significantly low patient is afebrile. Remains on Levophed, phenylephrine and vasopressin. Not on any sedation. Patient was started on meropenem and vancomycin. Discussed with and updated him with pt's condition and he decided to withdraw support. Patient acute respiratory failure likely secondary to COVID-19 and worsening oxygen requirements. He was on 100% FiO2 and peep of 12. Patient also on Levophed, vasopressin and Jaquan-Synephrine for shock which could be septic versus cardiogenic given cardiac arrest. Patient was on the vancomycin renal panel. Patient was also hyperkalemic, acute kidney injury with worsening creatinine anuric -after discussion with the he understood that the patient is in critical condition he decided to withdraw support and make him comfortable. Date of : 04/15/2021 Time of : 11:23 a.m. Additional Data Confirmation of as documented by pronouncing clinician: Pupillary Reflex, Palpable Pulses, Response to Stimuli, Heart Tones and Breath Sounds Name of Provider Notified: Dr. Bowman Time Provider Notified: 11:23 Provider Requests Autopsy: No Family Requests Autopsy: No Dietary Tech Notified: Yes Date [facility] Notified of : 04/15/[address] [facility] Notified of : 11:43
== END 2021-04-15 11:23 | disposition expired | DRG 208 ==
LOC: ANHED 12:30 → ANH3MEDSUR 16:21 → ANHICU 04-18 10:12
PROVIDERS: Emergency Medicine; Internal Medicine; Internal Medicine Nephrology; Physician Assistant; Admitting Provider Internal Medicine; Emergency Provider Emergency Medicine; PCP Internal Medicine; Visit Provider Internal Medicine
DX: U07.1 COVID-19 (principal); J12.82 Pneumonia due to coronavirus disease 2019; J96.01 Acute respiratory failure with hypoxia; N18.4 Chronic kidney disease, stage 4 (severe); C91.10 Chronic lymphocytic leukemia of B-cell type not having achieved remission; I69.351 Hemiplegia and hemiparesis following cerebral infarction affecting right dominant side; N13.30 Unspecified hydronephrosis; N39.0 Urinary tract infection, site not specified; N17.9 Acute kidney failure, unspecified; J44.0 Chronic obstructive pulmonary disease with (acute) lower respiratory infection; E87.0 Hyperosmolality and hypernatremia; R57.9 Shock, unspecified; Z66 Do not resuscitate; I49.01 Ventricular fibrillation; E87.5 Hyperkalemia; I46.9 Cardiac arrest, cause unspecified; R79.89 Other specified abnormal findings of blood chemistry; R41.82 Altered mental status, unspecified; I69.320 Aphasia following cerebral infarction; I69.391 Dysphagia following cerebral infarction; R13.10 Dysphagia, unspecified; B95.1 Streptococcus, group B, as the cause of diseases classified elsewhere; B95.2 Enterococcus as the cause of diseases classified elsewhere; R93.5 Abnormal findings on diagnostic imaging of other abdominal regions, including retroperitoneum; R53.1 Weakness; E11.65 Type 2 diabetes mellitus with hyperglycemia; E11.42 Type 2 diabetes mellitus with diabetic polyneuropathy; D63.8 Anemia in other chronic diseases classified elsewhere; G40.909 Epilepsy, unspecified, not intractable, without status epilepticus; I12.9 Hypertensive chronic kidney disease with stage 1 through stage 4 chronic kidney disease, or unspecified chronic kidney disease; E11.22 Type 2 diabetes mellitus with diabetic chronic kidney disease; G47.30 Sleep apnea, unspecified; E78.5 Hyperlipidemia, unspecified; E55.9 Vitamin D deficiency, unspecified; Z79.82 Long term (current) use of aspirin; Z79.84 Long term (current) use of oral hypoglycemic drugs; Z79.899 Other long term (current) drug therapy; Z88.0 Allergy status to penicillin; Z87.891 Personal history of nicotine dependence; Z74.01 Bed confinement status; Z99.3 Dependence on wheelchair
CPT/HCPCS: 36415; 36600; 51701; 70450; 71045; 74176; 76775; 80048; 80053; 80069; 81001; 82375; 82436; 82550; 82565; 82570; 82728; 82805; 82948; 83036; 83050; 83605; 83615; 83735; 84100; 84300; 84443; 84450; 84460; 84484; 85025; 85027; 85380; 85384; 85610; 85730; 85999; 86140; 87040; 87077; 87086; 87088; 87147; 87181; 87186; 92610; 92950; 93005; 94002; 94003; 94640; 94667; 96365; 97110; 97161; 97165; 97530; 97535; 99285; A9270; C1751; C9803; G0378; J0171; J0330; J0461; J0610; J0696; J1100; J1265; J1815; J1956; J2060; J2185; J2250; J2270; J2370; J2930; J3010; J3370; J7030; J7060; J7070; J7120; U0003; U0005